=== PATIENT | female | born 1940 | race Caucasian/White ===

== ENCOUNTER → 2016-09-16 | Outpatient (CLI) | payer MEDICARE, OTHER ==
[~2016-09-16] MED LIST: ACET-77 PO; AMIT10TA6 PO; BACL10TA PO; CALC-9 PO; CHOL4PAC17 PO; CHOLESTEROL; CIPR500T78 PO; CYAN10007 PO; CYAN250L PO; DIPH25CA6 PO; DOCU100C37 PO; DOXY100C2 PO; ENXP30I.3 SC; ERGO400C PO; FAMO20TA5 PO; FENT1PAT57 TD; GABA-488 PO; GBPN300C PO; HYDR-34 PO; LEVO100T7 PO; LOSA100T28 PO; LOSA50TA6 PO; LVT.1T PO; MELA3TAB PO; MTC10T PO; MULT-974 PO; NF-METANX PO; NFAMINITAB PO; OLME20TA21 PO; OLME20TA5 PO; OMEG-109 PO; OMEG1CAP74 PO; OMEP20CA12 PO; OMEP20TA2 PO; OMG1KC PO; ONDA8TAB6 PO; OXYC-471 PO; PRAV40TA2 PO; PRAV80TA2 PO; PRD20T; PRD5T PO; PRED2.5T4 PO; PRED5TAB PO; PRV20T PO; SENN-140 PO; SULF1TAB35 PO; TETR250C3 PO; TRAM50TA2 PO; VIT1CAPS9 PO; VIT1TABL26 PO; [UNRECOGNIZED DRUG - CODE] PO; [UNRECOGNIZED DRUG - OTHER]
--- OUTSIDE RECORDS SUMMARY | 2016-09-16 10:33 | XMS REPORT | Continuity of Care Document ---
Author Author [facility] Organization [facility] Address Unknown Phone Unavailable Care Team Providers Care Mobile Device Engineer Name Role Phone DANNI ALVA MD PCP Insurance Providers Payer Name Policy Number Subscriber Name Relationship s Medicare [id number] Saul Redd 18 Self / Same As Patient [facility] [id number] Saul Redd 18 Self / Same As Patient Advance Directives Directive Response Recorded Date/Time Advance Directives Yes 12/16/14 1:08pm Health Care Power of Naphthol Soaping Machine Operator No 12/16/14 1:08pm Organ Donor No 12/16/14 1:08pm Resuscitation Status DNR-Pt Request 12/16/14 1:08pm Problems Medical Problems Problem Onset Date Status Abdominal pain Unknown Active Diarrhea Unknown Active HISTORY OF C. DIFFICILE Unknown Active Medications Medication Dose Route Sig Days/Qty Instructions Order Date Discontinued Date Status Prednisone 10/29/07 10/03/11 Discontinued Levothyroxine Sodium (Levothroid) 100 Mcg PO DAILY 10/29/07 Active Olmesartan 20 Mg PO DAILY 12/10/08 09/06/13 Discontinued [Cholesterol] 12/10/08 10/03/11 Discontinued Metoclopramide HCl 10 Mg PO GIVE EVERY 6 HR ON SCHEDULE 20 Qty 10/03/11 Discontinued Trimethoprim/Sulfamethoxazole 1 Each PO TWICE A DAY 20 Qty 12/10/08 Discontinued Pravastatin Sodium 20 Mg PO DAILY 10/03/11 04/06/13 Discontinued Omeprazole 20 Mg PO DAILY 10/03/11 09/06/13 Discontinued Gabapentin 300 Mg PO BEDTIME 10/03/11 Active Me-Cobalam/Lm-Folate/Pyridoxal 1 Tab PO DAILY 10/03/11 04/06/13 Discontinued Amitriptyline HCl (Elavil) 1 Each PO BEDTIME 10/03/11 04/06/13 Discontinued Fish Oil 2,000 Mg PO DAILY take 2 (1000 mg) capsules daily 10/03/11 Discontinued Cholecalciferol 400 Unit PO DAILY 10/03/11 04/06/13 Discontinued Calcium Carbonate/Vitamin D3 1,200 Mg PO DAILY 10/03/11 04/06/13 Discontinued Vitamin C/Vitamin E 4 Tab PO DAILY 10/03/11 04/13/13 Discontinued Acetaminophen/Hydrocodone Bitart 1 - 2 Ea PO Q 4 - 6 HR PRN 30 Qty 09/1904/06/13 Discontinued Enoxaparin Sodium 30 Mg SC Q24H 7 Days 10/09/11 04/06/13 Discontinued Prednisone 5 Mg PO DAILY 04/06/13 09/06/13 Discontinued Me-Cobalam/Lm-Folate/Pyridoxal 2 Tab PO DAILY 04/06/13 04/13/13 Discontinued Cholestyramine/Aspartame 4 G PO EVERY 12 HOURS PRN NEEDED FOR DIARRHEA 04/13/13 09/06/13 Discontinued Vancomycin Hcl 125 Mg PO EVERY 6 HOURS KEEP REFRIGERATED, 04/13/13 Discontinued Tetracycline Hcl 250 Mg PO DAILY 09/06/13 09/06/13 Discontinued Prednisone 5 Mg PO DAILY 09/06/13 09/06/13 Discontinued Omeprazole 20 Mg PO BEDTIME 09/06/13 02/15/14 Discontinued Olmesartan 20 Mg PO DAILY 09/06/13 09/06/13 Discontinued Prednisone 5 Mg PO DAILY 09/06/13 12/16/14 Discontinued Doxycycline Hyclate (Vibramycin) 100 Mg PO DAILY TAKE UNTIL GONE #30 FILLED 08-25-13 09/06/13 09/07/13 Discontinued Losartan Potassium 50 Mg PO DAILY 09/06/13 Active Multivitamin 1 Tab PO DAILY 09/06/13 02/15/14 Discontinued [place]-3/Dha/Epa/Fish Oil 1,000 Mg PO DAILY 09/06/13 Active Vit A,C & E/Lutein/Minerals 4 Tab PO DAILY 09/06/13 Active Cyanocobalamin (Vitamin B-12) 250 Mcg PO DAILY 09/06/13 02/15/14 Discontinued Pravastatin Sodium 20 Tab PO DAILY 30 Qty 09/07/13 02/15/14 Discontinued Pravastatin Sodium 1 Tab PO DAILY 30 Qty 02/15/14 Active Famotidine (Pepcid) 1 Each PO BEDTIME 02/15/14 12/16/14 Discontinued [Zanac] 12/16/14 Active Ciprofloxacin HCl 500 Mg PO TWICE A DAY 14 Qty 12/16/14 Active Social History Social History Problem Response Recorded Date/Time Alcohol Use Denies Use 12/16/2014 1:08pm Recreational Drug Use No 12/16/2014 1:08pm Recent Foreign Travel No 09/06/2013 11:10am Recent Infectious Disease Exposure No 09/06/2013 11:10am Hospitalization with Isolation Contact 09/07/2013 8:46pm Smoking Status Never a Smoker 12/16/2014 1:08pm Query Response Start Date Stop Date Smoking Status Never a Smoker Hospital Discharge Instructions No hospital discharge instructions. Plan of Care No plan of care. Functional Status No functional status results. Allergies, Adverse Reactions, Alerts Allergen Type Severity Reaction Status Last Updated Iodinated Contrast Media - IV Dye Allergy Unknown Active 09/07/13 iodine ([id number]) Allergy Unknown Active 01/08/06 Morphine Allergy Unknown Active 01/08/06 Immunizations Name Given Type Date of Pneumonia Vaccine 06/08/10 Historical Date of Influenza Vaccine 06/22/13 Historical Hepatitis A No Historical Hepatitis B No Historical Tetanus Booster (TDap) More than 5yrs Historical Vital Signs Acute Vital Signs Vital Response Date/Time Temperature (Fahrenheit) 98.2 degrees F (97.6 - 99.5) Temperature (Calculated Celsius) 36.97122 degrees C (36.4 - 37.5) Pulse Rate (adult) 85 bpm (60 - 90) Respiratory Rate 18 bpm (12 - 24) O2 Sat by Pulse Oximetry 97 % (88 - 100) Blood Pressure 170/90 mm Hg Pain Pain Intensity 6 Height (Feet) 5 feet Height (Inches) 5 inches Height (Calculated Centimeters) 165.700216 cm Weight (Pounds) 180 pounds Weight (Calculated Kilograms) 81.398253 kilograms Calculated BMI 29.95 Results Laboratory Results Test Name Result Units Flags Reference Collection Date/Time Result Date/ Time Comments White Blood Count 8.4 10^3/uL 4.3-11.0 12/16/2014 1:37pm 12/16/2014 1: 47pm Red Blood Count 4.67 10^6/uL 4.35-5.85 12/16/2014 1:37pm 12/16/2014 1: 47pm Hemoglobin 14.6 G/DL 11.5-16.0 12/16/2014 1:37pm 12/16/2014 1:47pm Hematocrit 44 % 35-52 12/16/2014 1:37pm 12/16/2014 1:47pm Mean Corpuscular Volume 95 FL 80-99 12/16/2014 1:37pm 12/16/2014 1: 47pm Mean Corpuscular Hemoglobin 31 PG 25-34 12/16/2014 1:37pm 12/16/2014 1: 47pm Mean Corpuscular Hemoglobin Concent 33 G/DL 32-36 12/16/2014 1:37pm 06/2015 1:47pm Red Cell Distribution Width 14.4 % 10.0-14.5 12/16/2014 1:37pm 2014 1:47pm Platelet Count 243 10^3/uL 130-400 12/16/2014 1:37pm 12/16/2014 1:47pm Mean Platelet Volume 10.4 FL 7.4-10.4 12/16/2014 1:37pm 12/16/2014 1: 47pm Neutrophils (%) (Auto) 71 % 42-75 12/16/2014 1:37pm 12/16/2014 1:47pm Lymphocytes (%) (Auto) 19 % 12-44 12/16/2014 1:37pm 12/16/2014 1:47pm Monocytes (%) (Auto) 8 % 0-12 12/16/2014 1:37pm 12/16/2014 1:47pm Eosinophils (%) (Auto) 1 % 0-10 12/16/2014 1:37pm 12/16/2014 1:47pm Basophils (%) (Auto) 1 % 0-10 12/16/2014 1:37pm 12/16/2014 1:47pm Neutrophils # (Auto) 6.0 X 10^3 1.8-7.8 12/16/2014 1:37pm 12/16/2014 1: 47pm Lymphocytes # (Auto) 1.6 X 10^3 1.0-4.0 12/16/2014 1:37pm 12/16/2014 1: 47pm Monocytes # (Auto) 0.7 X 10^3 0.0-1.0 12/16/2014 1:37pm 12/16/2014 1: 47pm Eosinophils # (Auto) 0.1 10^3/uL 0.0-0.3 12/16/2014 1:37pm 12/16/2014 1 :47pm Basophils # (Auto) 0.1 10^3/uL 0.0-0.1 12/16/2014 1:37pm 12/16/2014 1: 47pm Urine Color YELLOW 12/16/2014 2:41pm 12/16/2014 3:06pm Urine Clarity VERY CLOUDY * 12/16/2014 2:41pm 12/16/2014 3:06pm Urine pH 6 5-9 12/16/2014 2:41pm 12/16/2014 3:06pm Urine Specific [place] 1.015 * 1.016-1.022 12/16/2014 2:41pm 2014 3:06pm Urine Protein NEGATIVE NEGATIVE 12/16/2014 2:41pm 12/16/2014 3:06pm Urine Glucose (UA) NEGATIVE NEGATIVE 12/16/2014 2:41pm 12/16/2014 3: 06pm Urine RBC (Auto) 2+ * NEGATIVE 12/16/2014 2:41pm 12/16/2014 3:06pm Urine Ketones NEGATIVE NEGATIVE 12/16/2014 2:41pm 12/16/2014 3:06pm Urine Nitrite NEGATIVE NEGATIVE 12/16/2014 2:41pm 12/16/2014 3:06pm Urine Bilirubin NEGATIVE NEGATIVE 12/16/2014 2:41pm 12/16/2014 3: 06pm Urine Urobilinogen NORMAL MG/DL NORMAL 12/16/2014 2:41pm 12/16/2014 3: 06pm Urine Leukocyte Esterase 3+ * NEGATIVE 12/16/2014 2:41pm 12/16/2014 3: 06pm Urine RBC 2-5 /HPF * 12/16/2014 2:41pm 12/16/2014 3:06pm Urine WBC 25-50 /HPF * 12/16/2014 2:41pm 12/16/2014 3:06pm Urine Bacteria LARGE /HPF * 12/16/2014 2:41pm 12/16/2014 3:06pm Urine Squamous Epithelial Cells 25-50 /HPF * 12/16/2014 2:41pm 2014 3:06pm Urine Renal Epithelial Cells 0-2 /HPF 12/16/2014 2:41pm 12/16/2014 3: 06pm Urine Crystals NONE /LPF 12/16/2014 2:41pm 12/16/2014 3:06pm Urine Casts NONE /LPF 12/16/2014 2:41pm 12/16/2014 3:06pm Urine Mucus NEGATIVE /LPF 12/16/2014 2:41pm 12/16/2014 3:06pm Urine Culture Indicated YES 12/16/2014 2:41pm 12/16/2014 3:06pm does not appear to be a clean catch Sodium Level 144 MMOL/L 135-145 12/16/2014 1:37pm 12/16/2014 2:05pm Potassium Level 4.6 MMOL/L 3.6-5.0 12/16/2014 1:37pm 12/16/2014 2:05pm Chloride Level 108 MMOL/L H 98-107 12/16/2014 1:37pm 12/16/2014 2:05pm Carbon Dioxide Level 26 MMOL/L 21-32 12/16/2014 1:37pm 12/16/2014 2: 05pm Blood Urea Nitrogen 10 MG/DL 7-18 12/16/2014 1:37pm 12/16/2014 2:05pm Creatinine 0.80 MG/DL 0.60-1.30 12/16/2014 1:37pm 12/16/2014 2:05pm BUN/Creatinine Ratio 13 12/16/2014 1:37pm 12/16/2014 2:05pm Estimat Glomerular Filtration Rate > 60 12/16/2014 1:37pm 2014 2:05pm GFR INTERPRETIVE DATA UNITS FOR ESTIMATED GFR (eGFR): mL/min/1.73 M2 REFERENCE RANGE FOR ESTIMATED GFR (eGFR) eGFR NORMAL eGFR >60 MODERATELY DECREASED eGFR 30-59 SEVERLY DECREASED eGFR 15-29 KIDNEY FAILURE <15 (OR DIALYSIS) Glucose Level 131 MG/DL H 70-105 12/16/2014 1:37pm 12/16/2014 2:05pm Calcium Level 9.9 MG/DL 8.5-10.1 12/16/2014 1:37pm 12/16/2014 2:05pm Total Bilirubin 0.5 MG/DL 0.1-1.0 12/16/2014 1:37pm 12/16/2014 2:05pm Alkaline Phosphatase 68 U/L 40-136 12/16/2014 1:37pm 12/16/2014 2:05pm Aspartate Amino Transf (AST/SGOT) 22 U/L 5-34 12/16/2014 1:37pm 2014 2:05pm Alanine Aminotransferase (ALT/SGPT) 24 U/L 0-55 12/16/2014 1:37pm 12/16 2:05pm Total Protein 7.0 G/DL 6.4-8.2 12/16/2014 1:37pm 12/16/2014 2:05pm Albumin 4.3 G/DL 3.2-4.5 12/16/2014 1:37pm 12/16/2014 2:05pm Procedures No known history of procedures. Encounters Encounter Location Date/Time Departed Emergency Room Via [facility] 12/16/14 12:36pm Recent Diagnosis
--- NOTE | 2016-09-16 16:13 | Diagnostic Imaging Report ---
Exam: Three views of the left ribs. Indication: Fall. Findings: There is no fracture seen. There is minimal atelectasis in the left lung base. Impression: No rib fracture seen. Dictated by: Dictated on workstation # [id number]
== END ==
LOC: RAD 10:29
PROVIDERS: ATTEND Nurse Practitioner Family
DX: R07.81 Pleurodynia (principal)
CPT/HCPCS: 71100

== ENCOUNTER 2016-11-05 10:59 | Outpatient (RCR) | payer MEDICARE, OTHER ==
--- OUTSIDE RECORDS SUMMARY | 2016-10-10 08:57 | XMS REPORT | Continuity of Care Document ---
Author Author [facility] Organization [facility] Address Unknown Phone Unavailable Care Team Providers Care Manager Biostatistics Name Role Phone DANNI ALVA MD PCP Insurance Providers Payer Name Policy Number Subscriber Name Relationship s Medicare [id number] Saul Redd 18 Self / Same As Patient [facility] [id number] Saul Redd 18 Self / Same As Patient Advance Directives Directive Response Recorded Date/Time Advance Directives Yes 12/16/14 1:08pm Health Care Power of Vehicle Monitor Technician No 12/16/14 1:08pm Organ Donor No 12/16/14 [...] 1 Tab PO DAILY 09/06/13 02/15/14 Discontinued [place]-3/Dha/Epa/Fish Oil 1,000 Mg PO DAILY 09/06/13 Active [...] IV Dye Allergy Unknown Active 09/07/13 iodine ([id number]) Allergy Unknown Active 01/08/06 Morphine Allergy Unknown Active 01/08/06 Immunizations Name Given Type Date of Pneumonia Vaccine 06/08/10 Historical Date of Influenza Vaccine 06/22/13 Historical Hepatitis A No Historical Hepatitis B No Historical Tetanus Booster (TDap) More than 5yrs Historical Vital Signs Acute Vital Signs Vital Response Date/Time Temperature (Fahrenheit) 98.2 degrees F (97.6 - 99.5) Temperature (Calculated Celsius) 36.49755 degrees C (36.4 - 37.5) Pulse Rate (adult) 85 bpm (60 - 90) Respiratory Rate 18 bpm (12 - 24) O2 Sat by Pulse Oximetry 97 % (88 - 100) Blood Pressure 170/90 mm Hg Pain Pain Intensity 6 Height (Feet) 5 feet Height (Inches) 5 inches Height (Calculated Centimeters) 165.610463 cm Weight (Pounds) 180 pounds Weight (Calculated Kilograms) 81.728879 kilograms Calculated BMI 29.95 Results Laboratory Results [...] 5-9 12/16/2014 2:41pm 12/16/2014 3:06pm Urine Specific [place] 1.015 * 1.016-1.022 12/16/2014 2:41pm 2014 3:06pm [...] Encounter Location Date/Time Departed Emergency Room Via [facility] 12/16/14 12:36pm Recent Diagnosis
== END 2016-12-31 16:05 | disposition home or self-care (01) ==
PROVIDERS: ATTEND Family Medicine
DX: M62.81 Muscle weakness (generalized) (principal)

== ENCOUNTER → 2016-11-05 | Outpatient (CLI) | payer MEDICARE, OTHER ==
--- OUTSIDE RECORDS SUMMARY | 2016-11-05 16:11 | XMS REPORT | Continuity of Care Document ---
Author Author [facility] Organization [facility] Address Unknown Phone Unavailable Care Team Providers Care Stepdown Nurse Name Role Phone DANNI ALVA MD PCP Insurance Providers Payer Name Policy Number Subscriber Name Relationship s Medicare [id number] Saul Redd 18 Self / Same As Patient [facility] [id number] Saul Redd 18 Self / Same As Patient Advance Directives Directive Response Recorded Date/Time Advance Directives Yes 12/16/14 1:08pm Health Care Power of Heat Treater Apprentice No 12/16/14 1:08pm Organ Donor No 12/16/14 [...] 1 Tab PO DAILY 09/06/13 02/15/14 Discontinued [place]-3/Dha/Epa/Fish Oil 1,000 Mg PO DAILY 09/06/13 Active [...] IV Dye Allergy Unknown Active 09/07/13 iodine ([id number]) Allergy Unknown Active 01/08/06 Morphine Allergy Unknown Active 01/08/06 Immunizations Name Given Type Date of Pneumonia Vaccine 06/08/10 Historical Date of Influenza Vaccine 06/22/13 Historical Hepatitis A No Historical Hepatitis B No Historical Tetanus Booster (TDap) More than 5yrs Historical Vital Signs Acute Vital Signs Vital Response Date/Time Temperature (Fahrenheit) 98.2 degrees F (97.6 - 99.5) Temperature (Calculated Celsius) 36.32345 degrees C (36.4 - 37.5) Pulse Rate (adult) 85 bpm (60 - 90) Respiratory Rate 18 bpm (12 - 24) O2 Sat by Pulse Oximetry 97 % (88 - 100) Blood Pressure 170/90 mm Hg Pain Pain Intensity 6 Height (Feet) 5 feet Height (Inches) 5 inches Height (Calculated Centimeters) 165.071225 cm Weight (Pounds) 180 pounds Weight (Calculated Kilograms) 81.973064 kilograms Calculated BMI 29.95 Results Laboratory Results [...] 5-9 12/16/2014 2:41pm 12/16/2014 3:06pm Urine Specific [place] 1.015 * 1.016-1.022 12/16/2014 2:41pm 2014 3:06pm [...] Encounter Location Date/Time Departed Emergency Room [facility] 12/16/14 12:36pm Recent Diagnosis
--- NOTE | 2016-11-05 18:25 | Diagnostic Imaging Report ---
INDICATION: Right knee pain. FINDINGS: AP, oblique and lateral views of the right knee reveal diffuse joint space narrowing and marginal spurring. There is also increased density in the suprapatellar recess indicating joint effusion. No fracture or malalignment is identified. There is extensive, diffuse atherosclerotic calcification. IMPRESSION: Osteoarthritis of the right knee with moderate amount of right joint fluid. Dictated by: Dictated on workstation # [id number]
== END ==
LOC: RAD 15:47
PROVIDERS: ATTEND Pain Medicine Pain Medicine
DX: M17.11 Unilateral primary osteoarthritis, right knee (principal)
CPT/HCPCS: 73562

== ENCOUNTER → 2017-07-24 | Outpatient (CLI) | payer MEDICARE, OTHER ==
--- NOTE | 2017-07-25 10:06 | Diagnostic Imaging Report ---
Bilateral screening mammogram 2D views with tomosynthesis. The current study was also evaluated with a Computer Aided Detection (CAD) system. INDICATION: Screening. No current complaints stated on the questionnaire. COMPARISON: 07/25/16 FINDINGS: The breasts are composed of heterogeneously dense parenchyma which may decrease mammographic sensitivity. There are benign-appearing calcifications seen. Allowing for technique and positional differences, no suspicious change is seen. IMPRESSION: Dense breasts with no definite change. ACR BI-RADS Category 2: Benign findings. Result letter will be mailed to the patient. Note: At least 10% of breast cancer is not imaged by mammography. Dictated by: Dictated on workstation # [id number]
== END ==
LOC: RAD 10:31
PROVIDERS: ATTEND Nurse Practitioner Family
DX: Z12.31 Encounter for screening mammogram for malignant neoplasm of breast (principal)
CPT/HCPCS: 77067

== ENCOUNTER → 2018-04-13 | Outpatient (CLI) | payer MEDICARE, OTHER ==
--- NOTE | 2018-04-13 09:56 | Diagnostic Imaging Report ---
PROCEDURE: CT abdomen and pelvis without contrast. TECHNIQUE: Multiple contiguous axial images were obtained through the abdomen and pelvis without the use of intravenous contrast. INDICATION: Nausea and diarrhea. COMPARISON: None FINDINGS: Included portions of lung bases are clear. Note is made of calcified coronary atherosclerosis. CT abdomen: Normal appendix cannot be adequately identified, but there is no pericecal inflammation. Small bowel loops are nondistended. There is colonic diverticulosis, but no CT evidence of acute diverticulitis. The kidneys, liver, spleen, adrenal glands, and pancreas have an unremarkable noncontrast CT appearance. There is no loculated fluid collection, free fluid, nor free air within the abdomen. No abnormal mesenteric or retroperitoneal adenopathy is seen. There is mild scattered calcified aortic and arterial atherosclerosis. Bony structures show no acute abnormalities. CT pelvis: Urinary bladder is unopacified. No calculi are seen within the urinary bladder. Pessary device is noted. There is no loculated fluid collection, free fluid, nor free air within the pelvis. No abnormal lymph nodes are identified. Bony structures show no acute abnormalities. IMPRESSION: 1. No acute abnormalities are seen within the abdomen or pelvis. 2. Colonic diverticulosis, but no CT evidence of acute diverticulitis. Dictated by: Dictated on workstation # [id number]
== END ==
LOC: RAD 08:59
PROVIDERS: ATTEND Nurse Practitioner Family
DX: K57.30 Diverticulosis of large intestine without perforation or abscess without bleeding (principal)
CPT/HCPCS: 74176

== ENCOUNTER → 2018-07-07 | Outpatient (CLI) | payer MEDICARE, OTHER ==
[~2018-07-07] MED LIST changes: +ATOR10TA66 PO; -LOSA100T28 PO; +LOSA100T8 PO; +MELO7.5T46 PO; +OMEG1CAP13 PO; -SENN-140 PO; +SENN-141 PO
--- NOTE | 2018-07-08 14:34 | RADIOLOGY REPORT ---
NAME: SAUL REDD [facility] REC#: [id number] PT STATUS: DEP CLI : 12/12/1943 PHYSICIAN: NEO NARAYAN ADMIT DATE: 07/07/18/RAD CORRECTED Signed Date of Exam:07/07/18 CT ABDOMEN/PELVIS WO PROCEDURE: CT abdomen and pelvis without contrast. TECHNIQUE: Multiple contiguous axial images were obtained through the abdomen and pelvis without the use of intravenous contrast. INDICATION: Left lower quadrant pain and diverticulitis. No prior studies are available for comparison. The lung bases are clear. There are calcified lymph nodes in the arlet bilaterally consistent with prior granulomatous exposure. No discrete liver mass is identified. The gallbladder is surgically absent. No biliary duct dilatation is seen. Pancreas is atrophic. The spleen is unremarkable. No adrenal mass is detected. No renal calculi or hydronephrosis is identified. Aorta is calcified but nonaneurysmal. The small and large bowel loops are normal caliber. No obstruction is seen. There is diverticulosis of the sigmoid colon but no evidence of acute diverticulitis. The bladder is somewhat low in position and does show some prolapse inferiorly in the region of the vaginal cuff. Bony structures show postop changes of posterior instrumented fusion at L4-L5 level. IMPRESSION: 1. Uncomplicated diverticulosis. 2. No acute features detected. 3. Bladder prolapse. Dictated by: Dictated on workstation # [id number] Dict: 07/07/18 1354 Trans: 07/07/18 1744 [facility] [id number] Interpreted by: MIRLANDE SOLIS MD Electronically signed by: MIRLANDE SOLIS MD 07/07/18 1744 [facility]
== END ==
LOC: RAD 11:40
PROVIDERS: ATTEND Nurse Practitioner Family
DX: K57.30 Diverticulosis of large intestine without perforation or abscess without bleeding (principal); N81.10 Cystocele, unspecified; Z90.49 Acquired absence of other specified parts of digestive tract
CPT/HCPCS: 74176

== ENCOUNTER 2018-07-14 13:00 | Outpatient (CLI) | payer MEDICARE, OTHER ==
[~2018-07-14] VITALS: Ht 162.6 cm; Wt 78.0 kg
[~2018-07-14 13:00] MED LIST changes: -ATOR10TA66 PO; -MELO7.5T46 PO; -OMEG1CAP13 PO
[2018-07-14] MEDS ORDERED: ATOR10TA66 PO (13:16)
[2018-07-14] MEDS ORDERED: MELO7.5T46 PO (13:16)
[2018-07-14] MEDS ORDERED: OMEG1CAP13 PO (13:16)
== END 2018-07-14 13:20 | disposition home or self-care (01) ==
LOC: PREOP 13:00
PROVIDERS: ATTEND Internal Medicine
DX: Z01.818 Encounter for other preprocedural examination (principal)

== ENCOUNTER 2018-07-17 08:20 | Day surgery (SDC) | payer MEDICARE, OTHER ==
--- NOTE | 2018-07-13 17:12 | HISTORY AND PHYSICAL ---
DATE OF SERVICE: COLONOSCOPY HISTORY AND PHYSICAL DATE OF SURGERY: 07/17/2018. HISTORY OF PRESENT ILLNESS: The patient is a 67-year-old white female referred by Dr. Villatoro for diagnostic colonoscopy. She has had two bouts of left lower quadrant abdominal pain requiring antibiotics, presumably diverticulitis in etiology. She just finished a round of antibiotics that was rather protracted due to protracted symptoms last week. She has not had any recurrence of significant discomfort and denies night sweats, chills or fever. She is feeling better, but still notes some intermittent left lower quadrant abdominal pain without tenesmus and without bowel habit change, denying diarrhea or constipation currently. She has not noted any blood in her stool and does not believe that there has been any associated weight loss. I had performed colonoscopy on her in 2012, at which time, she did have a villous adenoma in the cecum, which was biopsied and cauterized; it measured 1 x 1.5 cm in size and there was no evidence. She underwent a repeat colonoscopy in 2013 revealing no evidence for recurrence of that polyp. She had several diminutive hyperplastic polyps, one from the splenic flexure, one from the proximal sigmoid colon and a questionable evolving tubular adenoma removed from the hepatic flexure. She had moderate diverticular disease without evidence of diverticulitis on her last colonoscopy in 2013. 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 PAST SURGICAL HISTORY: Significant for lumbar diskectomy and possible fusion in 2015. She has had a past hemorrhoidectomy. She did undergo CT scanning last week, which revealed significant diverticulosis, but no CT findings to suggest diverticulitis with no other significant abnormalities being noted. FAMILY HISTORY: Her father succumbed to a stroke in his 70s and mother had a heart attack in her 70s as well. She is not aware of any family history for GI tract malignancy including colon cancer. SOCIAL HISTORY: She is and lives with her spouse with no past smoking history and no alcohol usage. PHYSICAL EXAMINATION: GENERAL: Reveals a somewhat anxious appearing white female, otherwise in no acute distress. VITAL SIGNS: Blood pressure 136/60. HEENT: Unremarkable. Sclerae are nonicteric. No evidence for pallor is noted. CHEST: Clear to auscultation. CARDIOVASCULAR: Reveals a regular rate and rhythm with a soft I to II/ systolic ejection murmur heard best in the second right intercostal space without evidence of pulsus, parvus or tardus. ABDOMEN: Soft and supple. There is some mild left lower quadrant discomfort to palpation. No mass or organomegaly is noted. No rebound or guarding is noted. Bowel sounds are positive and no bruits are appreciated. There is no evidence for abdominal distention. EXTREMITIES: Reveal no cyanosis, clubbing or edema. ASSESSMENT AND PLAN: For further investigation of left lower quadrant abdominal pain and a past history of adenomatous colonic polyps, the patient was set up for colonoscopy on 07/17/2018. Prep instructions were given and questions were answered. Her electronic medical record was reviewed. Forty minutes of my personal time was spent with another 15 minutes of staff time going over prep instructions setting of the procedure. This will be performed under Diprivan based anesthesia and she is quite anxious and is having some left lower quadrant abdominal pain and I suspect we would be unable to keep her comfortable without having to potentially over utilize Versed and narcotic based anesthesia. Job ID: [id number] DocumentID: [id number] Dictated Date: 07/10/2018 11:36:29 Javascript Front End Developer Date: 07/10/2018 13:00:16 Dictated By: HANNAH SOLER MD
[~2018-07-17] VITALS: Ht 162.6 cm; Wt 78.0 kg
[2018-07-17 08:20] VITALS: BP 164/99
[~2018-07-17 08:20] MED LIST changes: +ATOR10TA66 PO; +MELO7.5T46 PO; +OMEG1CAP13 PO
[2018-07-17] MEDS ORDERED: D5 LR IV SOLUTION 1,000 ML IV ONE ×2 (08:47→09:15)
[2018-07-17] MEDS ORDERED: ONDANSETRON 4 MG/2 ML (SDV) Z0FRAN ONE (09:01)
[2018-07-17] MEDS ORDERED: LACTATED RINGERS 1,000 ML IV PRN (09:15)
[2018-07-17] MEDS ORDERED: ONDANSETRON 4 MG/2 ML (SDV) Z0FRAN IVP PRN (09:15)
[2018-07-17] MEDS ORDERED: LACTATED RINGERS 1,000 ML IV ONE (09:33)
[2018-07-17] MEDS ORDERED: MIDAZOLAM 2 MG/2 ML (VERSED) VIAL ONE (09:51)
[2018-07-17] MEDS ORDERED: PROPOFOL INJECTION 50 ML IV ONE (09:51)
--- NOTE | 2018-07-17 09:57 | Pre-Op Note & Conscious Sedat ---
Pre-Operative Progress Note H&P Reviewed The H&P was reviewed, patient examined and no changes noted. Date H&P Reviewed: Jul 17, 2018 Time H&P Reviewed: 09:57 Conscious Sedation Pre-Proced ASA Score 2 For ASA 3 and 4: Consider anesthesia and medical clearance. Also, for patients with a history of failed moderate sedation consider anesthesia. Airway Lungs Heart ASA score ASA 1: a normal healthy patient ASA 2: a patient with a mild systemic disease (mid diabetes, controlled hypertension, obesity ASA 3: a patient with a severe systemic disease that limits activity (angina , COPD, prior Myocardial infarction) ASA 4: a patient with an incapacitating disease that is a constant threat to life (CHF, renal failure) ASA 5: a moribund patient not expected to survive 24 hrs. (ruptured aneurysm) ASA 6: a declared brain patient whose organs are being harvested. For emergent operations, add the letter E after the classification Mallampati Classification Grade 3 Sedation Plan Analgesia, Amnesia, Plan communicated to team members, Discussed options with patient/fam, Discussed risks with patient/fam The patient is an appropriate candidate to undergo the planned procedure, sedation, and anesthesia. The patient immediately re-assessed prior to indication. HANNAH SOLER MD Jul 17, 2018 09:57
[2018-07-17 11:30] VITALS: BP 114/59
[2018-07-17 12:30] VITALS: BP 139/67
[2018-07-17 13:00] VITALS: BP 139/67
--- NOTE | 2018-07-17 16:10 | Anesthesia-General Post-Op ---
MAC Patient Condition Mental Status/LOC: Same as Preop Cardiovascular: Satisfactory Nausea/Vomiting: Absent Respiratory: Satisfactory Pain: Controlled Complications: Absent Post Op Complications Complications None Follow Up Care/Instructions Patient Instructions None needed. Anesthesiology Discharge Order Discharge Order Patient was seen this morning after the procedure and she was doing well, no complaints, stable vital signs, no apparent adverse anesthesia problems. COLEMAN SOOD DO Jul 17, 2018 16:10
--- NOTE | 2018-07-17 16:46 | OPERATIVE REPORT ---
DATE OF SERVICE: 07/17/2018 COLONOSCOPY SUMMARY INDICATION FOR THE PROCEDURE: Surveillance colonoscopy, history of adenomatous cecal polyp, and severe diverticular disease. The patient was placed in left lateral decubitus position. Prior to undergoing colonoscopy, a digital rectal evaluation was performed. Anal sphincter tone was normal and the perianal reflex is intact. No abnormalities were noted to digital inspection of anal canal or distal rectal vault. The colonoscope was then inserted in the rectum under direct visualization advanced to the cecum. The cecum was identified by identification of the ileocecal valve and cecal strap. Photographic documentation was obtained. Careful inspection was made as the colonoscope was withdrawn. Due to severe diverticular disease and past sensitivity, procedure was done under Diprivan anesthesia. FINDINGS: There is evidence for internal or external hemorrhoids and the rectum was unremarkable. Multiple small to medium size diverticulum with haustral hypertrophy was noted throughout the sigmoid colon compatible with severe diverticular disease, but without endoscopic evidence for diverticulitis. Diverticular disease involved predominantly the cecum and to a lesser extent the descending colon with minimal disease proximal to this. No other sigmoid, descending, splenic flexure or transverse colonic abnormalities were noted. The hepatic flexure was unremarkable. There was no evidence for previous polyp removed from this location. The ascending colon was unremarkable. There was a 1 x 2 cm adenomatous appearing cecal polyp present, despite placing the patient in several different positions, I was not able to get a snare around it. It was biopsied and cauterized in four locations with tissue submitted for histopathology. There was no evidence to suggest malignant degeneration to gross inspection. Photograph was obtained. Minimal blood loss was noted. A diminutive periappendiceal polyp was biopsied, cauterized with no blood loss. ASSESSMENT: 1. A 1 x 2 cm sessile adenomatous appearing cecal polyp was noted after unsuccessful attempts to snare the poly, it was biopsied and cauterized in four locations. There was no evidence to gross inspection of malignant degeneration. We will await histopathology report with likely earlier recommendation for repeat surveillance colonoscopy under Diprivan anesthesia. Again, noted was severe diverticular disease without evidence for diverticulitis predominantly noted in the sigmoid and to a lesser extent of the descending colon. I thank you for the referral of this pleasant lady. Sincerely, Job ID: [id number] DocumentID: [id number] Dictated Date: 07/17/2018 11:45:31 Closing Manager Date: 07/17/2018 16:45:47 Dictated By: HANNAH SOLER MD MTDD
--- NOTE | 2018-07-22 22:59 | OPERATIVE REPORT ---
DATE OF SERVICE: FOLLOWUP COLONOSCOPY Path report revealed the larger polyp while a larger polyp in the cecum was actually a serrated adenoma. This is a precancerous lesion and due to its large size, they would recommend a repeat followup surveillance colonoscopy in one year. I thank you for the referral of this pleasant lady. Job ID: [id number] DocumentID: [id number] Dictated Date: 07/22/2018 14:13:35 Customer Contact Specialist Date: 07/22/2018 22:58:33 Dictated By: HANNAH SOLER MD
== END 2018-07-17 13:00 | disposition home or self-care (01) ==
LOC: ENDO 08:20
PROVIDERS: ATTEND Internal Medicine
DX: Z12.11 Encounter for screening for malignant neoplasm of colon (principal); D12.0 Benign neoplasm of cecum; D12.1 Benign neoplasm of appendix; K57.30 Diverticulosis of large intestine without perforation or abscess without bleeding; Z86.010 Personal history of colon polyps; I10 Essential (primary) hypertension; E06.3 Autoimmune thyroiditis; Z98.1 Arthrodesis status; Z79.899 Other long term (current) drug therapy
CPT/HCPCS: 87804; 88305

== ENCOUNTER → 2018-10-22 | Outpatient (CLI) | payer MEDICARE, OTHER ==
[~2018-10-22] MED LIST changes: +LOSA100T57 PO; -LOSA100T8 PO
--- NOTE | 2018-10-22 19:09 | Diagnostic Imaging Report ---
INDICATION: Pain in the left axilla. Correlation is made with prior mammograms dating back to 2008. 2-D and 3-D bilateral diagnostic mammography was performed with computer-aided Detection (CAD) system. FINDINGS: Both breasts are heterogeneously dense, limiting the sensitivity of mammography. There are benign parenchymal and vascular calcifications bilaterally. Lymph node in the left axilla has been stable on mammograms dating back to 2008. No new mass or malignant-appearing microcalcifications are seen. IMPRESSION: No mammographic features suspicious for malignancy are identified. Even so, directed sonographic interrogation of the area of pain in the left axilla is recommended and will be performed today. ACR BI-RADS Category 0: Incomplete. (Needs additional imaging evaluation). Result letter will be mailed to the patient. Note: At least 10% of breast cancer is not imaged by mammography. Dictated by: Dictated on workstation # [id number]
--- NOTE | 2018-10-22 19:11 | Diagnostic Imaging Report ---
INDICATION: Pain in the left axilla. The study is performed for further evaluation. Correlation is made with the diagnostic mammogram earlier same day. FINDINGS: Sonographic interrogation of the area of pain in left axilla was performed. There is a circumscribed ovoid hypoechoic mass measuring 2.1 x 0.6 x 1.2 cm. This corresponds to the density noted mammographically. This has been stable on mammograms dating back to 2008 and most likely represents a lymph node. No new abnormality is seen. No fluid collections are seen. IMPRESSION: No suspicious sonographic abnormality is identified. ACR BI-RADS Category 2: Benign findings. Dictated by: Dictated on workstation # [id number]
== END ==
LOC: RAD 10:30
PROVIDERS: ATTEND Nurse Practitioner Family
DX: N64.4 Mastodynia (principal)
CPT/HCPCS: 76642; 77066

== ENCOUNTER → 2019-01-20 | Outpatient (CLI) | payer MEDICARE, OTHER ==
[~2019-01-20] VITALS: Ht 162.6 cm; Wt 78.0 kg
[~2019-01-20] MED LIST changes: +NS IV 1000 ML 1,000 ML IV SCH; +NS IV 1000 ML 1,000 ML ONE; +OCUVITE SOFTGE1 EACH PO; -VIT1CAPS9 PO; +metroNIDAZOLE 500 MG/100 ML IVPB (PRE-MIX) IV ONE; +metroNIDAZOLE 500MG/100ML IVPB 100 ML ONE
[2019-01-20 12:06] VITALS: BP 112/67
== END ==
LOC: SDC 11:03
PROVIDERS: ATTEND Family Medicine
DX: K57.92 Diverticulitis of intestine, part unspecified, without perforation or abscess without bleeding (principal); I95.9 Hypotension, unspecified
CPT/HCPCS: 96361; 96365

== ENCOUNTER → 2019-01-26 | Outpatient (CLI) | payer MEDICARE, OTHER ==
[~2019-01-26] MED LIST changes: -NS IV 1000 ML 1,000 ML IV SCH; -NS IV 1000 ML 1,000 ML ONE; -metroNIDAZOLE 500 MG/100 ML IVPB (PRE-MIX) IV ONE; -metroNIDAZOLE 500MG/100ML IVPB 100 ML ONE
--- NOTE | 2019-01-26 12:53 | Diagnostic Imaging Report ---
PROCEDURE: CT abdomen and pelvis without contrast. TECHNIQUE: Multiple contiguous axial images were obtained through the abdomen and pelvis without the use of intravenous contrast. Auto Exposure Controls were utilized during the CT exam to meet ALARA standards for radiation dose reduction. INDICATION: Diarrhea and pain. COMPARISON: Exam compared to 07/07/2018. FINDINGS: There is no abnormal small or large bowel intraluminal content. There were no findings of bowel obstruction. No small or large bowel wall thickening. No perienteric or pericolonic edema. No inflammatory process, ascites, or fluid collection. There is no free air. There is ureterocele at the bladder base extending abnormally low in the pelvis. Some unobstructed pelvic small bowel also extending below the normal pelvic floor. Urinary tracts are unobstructed. No opaque stone. The gallbladder is surgically absent. No bile duct dilatation. Spleen, adrenals, and pancreas are unremarkable. Noninflamed sigmoid diverticulosis present. IMPRESSION: Noninflamed diverticulosis. No obstruction, inflammatory process, or acute finding. No fluid collection or mass. Enterocele and cystocele are noted, nonobstructing. Dictated by: Dictated on workstation # [id number]
== END ==
LOC: RAD 11:54
PROVIDERS: ATTEND Nurse Practitioner Family
DX: K57.30 Diverticulosis of large intestine without perforation or abscess without bleeding (principal); K45.8 Other specified abdominal hernia without obstruction or gangrene; N81.10 Cystocele, unspecified; Z90.49 Acquired absence of other specified parts of digestive tract
CPT/HCPCS: 74176

== ENCOUNTER 2019-07-16 15:50 | Outpatient (CLI) | payer MEDICARE, OTHER ==
[~2019-07-16] VITALS: Ht 165.1 cm; Wt 78.6 kg
[2019-07-16] MEDS ORDERED: ROSU5TAB PO (15:55)
[2019-07-16] MEDS ORDERED: EZET10TA49 PO (15:55)
== END 2019-07-16 15:56 | disposition home or self-care (01) ==
LOC: PREOP 15:50
PROVIDERS: ATTEND Internal Medicine
DX: Z01.818 Encounter for other preprocedural examination (principal)

== ENCOUNTER → 2020-01-12 | Outpatient (CLI) | payer MEDICARE, OTHER ==
[~2020-01-12] MED LIST changes: -ACET-77 PO; +ACET-78 PO; +DIPH25CA48 PO; -DIPH25CA6 PO; +EZET10TA49 PO; -MELA3TAB PO; +MELA3TAB39 PO; +ROSU5TAB PO; -SENN-141 PO; +SENN-234 PO; -TRAM50TA2 PO; +TRM50T PO
--- NOTE | 2020-01-12 10:38 | Diagnostic Imaging Report ---
EXAMINATION: Right ankle at 9:55 AM. INDICATION: Ankle pain. TECHNIQUE/COMPARISON: Three views of the right ankle were obtained. There are no prior studies available for comparison. FINDINGS: There is no fracture, dislocation, or acute bony abnormality evident. The ankle mortise is not widened and the talar dome is smooth. There is soft tissue edema about the ankle joint, particularly along the medial aspect of the ankle joint. IMPRESSION: There is soft tissue edema about the ankle joint, particularly along the medial aspect. There is no acute bony abnormality identified, however. Dictated by: Dictated on workstation # [id number]
== END ==
LOC: RAD 09:17
PROVIDERS: ATTEND Nurse Practitioner Family
DX: M25.571 Pain in right ankle and joints of right foot (principal)
CPT/HCPCS: 73610

== ENCOUNTER 2020-04-27 15:39 | Outpatient (CLI) | payer MEDICARE, OTHER ==
[~2020-04-27] VITALS: Ht 165.1 cm; Wt 76400.0 kg
[2020-04-27 15:45] VITALS: BP 155/78
[2020-04-27] MEDS ORDERED: ONDANSETRON 4 MG/2 ML (SDV) Z0FRAN IV PRN (16:00)
[2020-04-27] MEDS ORDERED: KETOROLAC 30 MG/ML VIAL IV PRN (16:00)
[2020-04-27] MEDS ORDERED: NS IV 1000 ML 1,000 ML IV NR (16:00)
[2020-04-27] MEDS ORDERED: metroNIDAZOLE 500 MG/100 ML IVPB (PRE-MIX) IV ONE (16:00)
[2020-04-27 16:07] LABS: HEMOGLOBIN 14.6 G/DL (11.5-16.0); RED CELL DISTRIBUTION WIDTH 15.6 % (10.0-14.5); WHITE BLOOD COUNT 6.1 10^3/uL (4.3-11.0)
[2020-04-27 16:25] LABS: ALANINE AMINOTRANSFERASE 20 U/L (0-55); ALBUMIN 4.1 GM/DL (3.2-4.5); ALKALINE PHOSPHATASE 58 U/L (40-136); BILIRUBIN,TOTAL 0.6 MG/DL (0.1-1.0); BUN/CREATININE RATIO 11; CALCIUM 9.5 MG/DL (8.5-10.1); CARBON DIOXIDE 26 MMOL/L (21-32); CHLORIDE 108 MMOL/L (98-107); CREATININE SERUM 0.75 MG/DL (0.60-1.30); GFR ESTIMATED > 60; GLUCOSE 100 MG/DL (70-105); SODIUM 142 MMOL/L (135-145); TOTAL PROTEIN 6.7 GM/DL (6.4-8.2)
--- NOTE | 2020-04-27 17:01 | Diagnostic Imaging Report ---
INDICATION: Abdominal pain and diarrhea Supine images of the abdomen reveal mild diffuse colonic stool. Overall bowel gas pattern is unremarkable. Surgical findings are seen in the lumbar spine and pelvis. There is no evidence of free intraperitoneal gas or pneumatosis. IMPRESSION: No acute abnormality is detected. Dictated by: Dictated on workstation # [id number]
[2020-04-27 17:32] LABS: BILIRUBIN,URINE NEGATIVE (NEGATIVE); COLOR,URINE YELLOW; GLUCOSE, URINE (UA) NEGATIVE (NEGATIVE); KETONES,URINE 1+ (NEGATIVE); LEUKOCYTE ESTERASE ,URINE 3+ (NEGATIVE); NITRITE,URINE NEGATIVE (NEGATIVE); PROTEIN,URINE NEGATIVE (NEGATIVE)
[2020-04-27 17:41] LABS: BACTERIA,URINE LARGE /HPF; CLARITY,URINE SL CLOUDY; WBC,URINE 25-50 /HPF
[2020-04-27 18:00] VITALS: BP 155/78
== END 2020-04-27 17:58 | disposition home or self-care (01) ==
LOC: SDC 15:39
PROVIDERS: ATTEND Nurse Practitioner Family
DX: R10.9 Unspecified abdominal pain (principal); R19.7 Diarrhea, unspecified
CPT/HCPCS: 36415; 74018; 80053; 81000; 85027; 87088; 96375

== ENCOUNTER → 2020-04-29 | Outpatient (CLI) | payer MEDICARE, OTHER | LOC: LAB 10:08 | PROVIDERS: ATTEND Family Medicine | DX: Z01.89 Encounter for other specified special examinations (principal) | CPT/HCPCS: 87015; 87045; 87046; 87324; 87449; 87899 ==

== ENCOUNTER 2020-05-01 09:09 | Outpatient (CLI) | payer MEDICARE, OTHER ==
[~2020-05-01] VITALS: Ht 165.1 cm; Wt 80.0 kg
[2020-05-01] MEDS ORDERED: NS IV 1000 ML 1,000 ML ONE (09:23)
[2020-05-01] MEDS ORDERED: metroNIDAZOLE 500MG/100ML IVPB 100 ML ONE (09:23)
[2020-05-01] MEDS ORDERED: metroNIDAZOLE 500 MG/100 ML IVPB (PRE-MIX) IV ONE (09:45)
[2020-05-01] MEDS ORDERED: NS IV 1000 ML 1,000 ML IV NR (09:45)
[2020-05-01 11:00] VITALS: BP 126/65
== END 2020-05-01 11:00 | disposition home or self-care (01) ==
LOC: SDC 09:09 → EDSTATUS 09:16 → SDC 11:00
PROVIDERS: ATTEND Nurse Practitioner Family
DX: R10.32 Left lower quadrant pain (principal); R11.0 Nausea
CPT/HCPCS: 96360; 96368

== ENCOUNTER → 2020-05-03 | Outpatient (CLI) | payer MEDICARE, OTHER ==
--- NOTE | 2020-05-03 15:20 | Diagnostic Imaging Report ---
PROCEDURE: CT abdomen and pelvis without contrast. TECHNIQUE: Multiple contiguous axial images were obtained through the abdomen and pelvis without the use of intravenous contrast. Auto Exposure Controls were utilized during the CT exam to meet ALARA standards for radiation dose reduction. INDICATION: Left lower quadrant pain with nausea and diarrhea. COMPARISON: Prior CT from 01/26/2019. FINDINGS: The lung bases are clear. The liver is unremarkable. The gallbladder is surgically absent. No biliary ductal dilatation is seen. The pancreas and spleen are unremarkable. No adrenal mass is detected. The kidneys are unremarkable. No calculus or hydronephrosis is identified. The aorta is non-aneurysmal. The bowel loops are of normal caliber. No obstruction is seen. There is diverticulosis of the sigmoid and descending colon but no evidence of acute diverticulitis. No free fluid or fluid collection is detected. The bladder does sit somewhat low in the pelvis, suggestive of pelvic relaxation. The bony structures demonstrate postop changes of posterior instrumented fusion in the lower lumbar spine. IMPRESSION: Stable chronic changes when compared with the exam from 01/26/2019. There is diverticulosis without evidence of acute diverticulitis. No acute feature is identified. Dictated by: Dictated on workstation # [id number]
== END ==
LOC: RAD 14:02
PROVIDERS: ATTEND Nurse Practitioner Family
DX: K57.30 Diverticulosis of large intestine without perforation or abscess without bleeding (principal); Z90.49 Acquired absence of other specified parts of digestive tract; Z98.890 Other specified postprocedural states
CPT/HCPCS: 74176

== ENCOUNTER 2020-05-11 08:15 | Outpatient (RCR) | payer MEDICARE, OTHER ==
[2020-05-11 08:23] LABS: BILIRUBIN,URINE NEGATIVE (NEGATIVE); CLARITY,URINE CLEAR; COLOR,URINE YELLOW; GLUCOSE, URINE (UA) NEGATIVE (NEGATIVE); KETONES,URINE NEGATIVE (NEGATIVE); LEUKOCYTE ESTERASE ,URINE 2+ (NEGATIVE); NITRITE,URINE NEGATIVE (NEGATIVE); PH,URINE 6.5 (5-9); PROTEIN,URINE NEGATIVE (NEGATIVE)
[2020-05-11 08:35] LABS: BACTERIA,URINE MODERATE /HPF
== END 2020-08-08 | disposition home or self-care (01) ==
LOC: LAB 08:15
PROVIDERS: ATTEND Internal Medicine Gastroenterology
DX: R19.7 Diarrhea, unspecified (principal); R19.8 Other specified symptoms and signs involving the digestive system and abdomen; R10.9 Unspecified abdominal pain; R19.5 Other fecal abnormalities; R31.9 Hematuria, unspecified
CPT/HCPCS: 36415; 81000; 85652; 86141; 87088; 89055

== ENCOUNTER → 2020-05-19 | Outpatient (CLI) | payer MEDICARE, OTHER | LOC: LABNPT 05:48 | PROVIDERS: ATTEND Internal Medicine Gastroenterology | DX: Z01.812 Encounter for preprocedural laboratory examination (principal) ==

== ENCOUNTER → 2020-06-06 | Outpatient (CLI) | payer MEDICARE, OTHER | LOC: LAB 11:31 | PROVIDERS: ATTEND Internal Medicine Gastroenterology | DX: K76.9 Liver disease, unspecified (principal); R79.9 Abnormal finding of blood chemistry, unspecified | CPT/HCPCS: 36415 ==

== ENCOUNTER → 2021-02-19 | Outpatient (CLI) | payer MEDICARE, OTHER ==
[~2021-02-19] MED LIST changes: -OXYC-471 PO; +OXYC1TAB11 PO
--- NOTE | 2021-02-19 15:33 | Diagnostic Imaging Report ---
PROCEDURE: CT head without contrast. TECHNIQUE: Multiple contiguous axial images were obtained through the brain without the use of intravenous contrast. Auto Exposure Controls were utilized during the CT exam to meet ALARA standards for radiation dose reduction. INDICATION: Right orbital bleeding per flat hammerer. COMPARISON: None available. FINDINGS: No intracranial hyperdense hemorrhage or space-occupying mass. No hydrocephalus or midline shift. Downing-white matter differentiation is preserved. Global atrophy is noted. Periventricular white matter hypoattenuation is most compatible with chronic microvascular ischemic disease. No skull fracture. Paranasal sinuses and mastoid air cells are clear. Bilateral lens surgery has been performed. No abnormal stranding within the intraorbital fat. IMPRESSION: 1. No acute intracranial hemorrhage or features of large territorial infarct. 2. Global atrophy with chronic microvascular ischemic disease. Dictated by: Dictated on workstation # [id number]
[2021-02-19 16:52] LABS: CREATINE KINASE 113 U/L (29-168)
[2021-02-19 16:59] LABS: CREATINE KINASE MB 2.8 NG/ML (<6.6)
[2021-02-19 17:06] LABS: ALBUMIN 4.2 GM/DL (3.2-4.5); CHLORIDE 107 MMOL/L (98-107); POTASSIUM 4.3 MMOL/L (3.6-5.0); SODIUM 144 MMOL/L (135-145)
[2021-02-19 17:07] LABS: CALCIUM 10.1 MG/DL (8.5-10.1)
[2021-02-19 17:08] LABS: GLUCOSE 120 MG/DL (70-105); TOTAL PROTEIN 6.7 GM/DL (6.4-8.2)
[2021-02-19 17:09] LABS: CARBON DIOXIDE 27 MMOL/L (21-32)
[2021-02-19 17:10] LABS: BILIRUBIN,TOTAL 0.5 MG/DL (0.1-1.0)
[2021-02-19 17:12] LABS: ALKALINE PHOSPHATASE 64 U/L (40-136); GFR ESTIMATED > 60
[2021-02-19 17:13] LABS: BUN/CREATININE RATIO 15
[2021-02-19 17:15] LABS: ALANINE AMINOTRANSFERASE 18 U/L (0-55)
== END ==
LOC: RAD 14:37
PROVIDERS: ATTEND Family Medicine
DX: H05.231 Hemorrhage of right orbit (principal); I16.0 Hypertensive urgency; I67.82 Cerebral ischemia
CPT/HCPCS: 36415; 70450; 80053; 82550; 82553; 83874; 84484

== ENCOUNTER → 2021-02-28 | Outpatient (CLI) | payer MEDICARE, OTHER | LOC: CARD 09:30 | PROVIDERS: ATTEND Internal Medicine Cardiovascular Disease | DX: I11.9 Hypertensive heart disease without heart failure (principal); I25.10 Atherosclerotic heart disease of native coronary artery without angina pectoris | CPT/HCPCS: 93306 ==

== ENCOUNTER 2021-06-18 09:00 | Outpatient (RCR) | payer MEDICARE, OTHER | END 2021-06-18 10:30 | disposition home or self-care (01) | PROVIDERS: ATTEND Family Medicine | DX: G25.0 Essential tremor (principal) ==

== ENCOUNTER 2022-06-04 07:16 | Emergency (ER) | payer MEDICARE, OTHER ==
[~2022-06-04] VITALS: Ht 165 cm; Wt 76.2 kg
[2022-06-04 07:55] LABS: BASOPHILS % (AUTO) 0 % (0-10); EOSINOPHILS # (AUTO) 0.3 10^3/uL (0.0-0.3); EOSINOPHILS % (AUTO) 5 % (0-10); HEMATOCRIT 46 % (35-52); HEMOGLOBIN 14.4 g/dL (11.5-16.0); LYMPHOCYTES # (AUTO) 1.9 10^3/uL (1.0-4.0); LYMPHOCYTES % (AUTO) 31 % (12-44); MEAN CORPUSCULAR HEMOGLOBIN 30 pg (25-34); MEAN CORPUSCULAR HGB CONC 32 g/dL (32-36); MEAN CORPUSCULAR VOLUME 95 fL (80-99); MEAN PLATELET VOLUME 10.8 fL (9.0-12.2); MONOCYTES # (AUTO) 0.6 10^3/uL (0.0-1.0); MONOCYTES % (AUTO) 10 % (0-12); NEUTROPHILS # (AUTO) 3.2 10^3/uL (1.8-7.8); NEUTROPHILS % (AUTO) 53 % (42-75); PLATELET COUNT 214 10^3/uL (130-400)
[2022-06-04 07:59] LABS: ALBUMIN 4.2 GM/DL (3.2-4.5); CHLORIDE 105 MMOL/L (98-107); SODIUM 145 MMOL/L (135-145)
[2022-06-04 08:01] LABS: CALCIUM 9.6 MG/DL (8.5-10.1)
[2022-06-04 08:02] LABS: GLUCOSE 128 MG/DL (70-105); TOTAL PROTEIN 6.8 GM/DL (6.4-8.2)
[2022-06-04 08:03] LABS: CARBON DIOXIDE 26 MMOL/L (21-32)
[2022-06-04 08:04] LABS: BILIRUBIN,TOTAL 0.6 MG/DL (0.1-1.0)
[2022-06-04 08:05] LABS: ALKALINE PHOSPHATASE 80 U/L (40-136); CREATININE SERUM 0.88 MG/DL (0.60-1.30); GFR ESTIMATED 66
[2022-06-04 08:07] LABS: BUN/CREATININE RATIO 18
[2022-06-04 08:08] LABS: ALANINE AMINOTRANSFERASE 22 U/L (0-55)
[2022-06-04] MEDS ORDERED: ASPIRIN 81 MG CHEW (CHILDREN'S ASA) PO ONE (08:30)
[2022-06-04] MEDS ORDERED: NITROGLYCERIN 0.4 MG SL TABS BTL 25'S SL PRN (08:30)
--- NOTE | 2022-06-04 08:55 | Diagnostic Imaging Report ---
EXAMINATION: Chest 1 view HISTORY: Chest pain. COMPARISON: 11/28/2015 FINDINGS: The lungs are clear without edema or pneumonia. No pleural effusion or pneumothorax. Heart size is normal. IMPRESSION: 1. Clear lungs. Dictated by: Dictated on workstation # [id number]
--- NOTE | 2022-06-04 11:18 | Diagnostic Imaging Report ---
PROCEDURE: US Venous Lower Ext José Antonio. TECHNIQUE: Multiple Real-time grayscale images were obtained over the lower extremities in various projections, bilaterally. Additional duplex Doppler and color Doppler images were also obtained. INDICATION: Lower extremities demonstrating pain and edema with elevated d-dimer. FINDINGS: Continuous venous flow is present. No intraluminal filling defect is identified. There is normal compressibility and response to augmentation. No abnormal perivascular fluid collection is identified. IMPRESSION: No ultrasound evidence of left lower extremity deep venous thrombosis. Dictated by: Dictated on workstation # [id number]
--- NOTE | 2022-06-04 14:13 | ED Chest Pain ---
General Chief Complaint: Chest Pain Stated Complaint: CHEST PAIN - LEFT ARM PAIN Nursing Triage Note: PT PRESENTS TO ED VIA POV FROM HOME WITH COMPLAINTS L SIDED CP STARTING THIS AM WHEN SHE WOKE UP. Source: patient Exam Limitations: no limitations Allergies and Home Medications Allergies Coded Allergies: Iodinated Contrast Media (Verified Allergy, Unknown, 07/23/19) FROM UNCODED ALLERGY LIST iodine (Verified Allergy, Unknown, 01/20/19) morphine (Verified Allergy, Unknown, 01/20/19) oxycodone (Verified Allergy, Unknown, 07/23/19) Patient Home Medication List Cyanocobalamin (Vitamin B-12) (Vitamin B-12) 1,000 Mcg Tablet.er, 1,000 MCG PO DAILY, (Reported) Entered as Reported by: FREDY POWERS on 11/28/15 09 Ezetimibe (Ezetimibe) 10 Mg Tablet, 10 MG PO DAILY, (Reported) Entered as Reported by: MICHAEL PIZARRO on 07/16/19 1555 Famotidine (Famotidine) 20 Mg Tablet, 20 MG PO DAILY, (Reported) Entered as Reported by: FREDY POWERS on 11/28/15 09 Gabapentin (Gabapentin) 300 Mg Capsule, 300 MG PO TID, (Reported) Entered as Reported by: FREDY POWERS on 11/28/15 0946 Levothyroxine Sodium (Levothyroxine Sodium) 100 Mcg Tablet, 100 MCG PO DAILY, (Reported) Entered as Reported by: FREDY POWERS on 11/28/15 0946 [place]-3 Fatty Acids/Fish Oil (Fish Oil 1,000 mg Softgel) 1 Each Capsule, 1,000 MG PO DAILY, (Reported) Entered as Reported by: MICHAEL PIZARRO on 07/14/18 1316 Rosuvastatin Calcium (Crestor) 5 Mg Tablet, 5 MG PO DAILY, (Reported) Entered as Reported by: MICHAEL PIZARRO on 07/16/19 1555 Vit C/Vit E/Lutein/Min/[place]-3 (Ocuvite Softgel) 1 Each Capsule, 4 CAP PO DAILY, (Reported) Entered as Reported by: FREDY POWERS on 11/28/15 0946 Past Ouviyvg-Ljgktz-Xyouzs Hx Patient Social History Tobacco Use?: No Substance use?: No Alcohol Use?: No Pt feels they are or have been: No Immunizations Up To Date Tetanus Booster (TDap): More than 5yrs PED Vaccines UTD: No Seasonal Allergies Seasonal Allergies: No Past Medical History Surgeries: Yes (HEMORRHOIDECTOMY, BACK X2, KNEE SCOPE, SKIN CA) Appendectomy, Hysterectomy, Neurological, Oophorectomy Respiratory: No Cardiac: Yes (LEFT BBB,) Hypertension Neurological: No Reproductive Disorders: No 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 Genitourinary: No Gastrointestinal: Yes (adenoma of the colon) Gastroesophageal Reflux, Diverticulosis, Polyps, C-Diff Musculoskeletal: Yes (POLYMYALGIA RHEUMATICA ) Arthritis, Chronic Back Pain Endocrine: Yes Hypothyroidsim Cataract Loss of Vision: Denies Hearing Impairment: Denies Cancer: Yes Skin What Type of Treatment Did You: Surgical Intervention Psychosocial: No Integumentary: No Blood Disorders: No Family Medical History Completed stroke 19 FATHER Myocardial infarction 19 MOTHER Heart Disease, Stroke Physical Exam Vital Signs Vital Signs - First Documented 06/04/22 07:20 Temp 36.0 Pulse 86 Resp 18 B/P (MAP) 149/82 (104) Pulse Ox 96 Capillary Refill : Less Than 3 Seconds Height, Weight, BMI Height: 5'4.00" Weight: 172lbs. 0.0oz. 78.820588lm; 27.00 BMI Method:Stated Progress/Results/Core Measures Results/Orders Lab Results Laboratory Tests Test 06/04/22 07:27 06/04/22 09:40 Range/Units White Blood Count 6.0 4.3-11.0 10^3/uL Red Blood Count 4.80 3.80-5.11 10^6/uL Hemoglobin 14.4 11.5-16.0 g/dL Hematocrit 46 35-52 % Mean Corpuscular Volume 95 80-99 fL Mean Corpuscular Hemoglobin 30 25-34 pg Mean Corpuscular Hemoglobin Concent 32 32-36 g/dL Red Cell Distribution Width 14.5 10.0-14.5 % Platelet Count 214 130-400 10^3/uL Mean Platelet Volume 10.8 9.0-12.2 fL Immature Granulocyte % (Auto) 1 % Neutrophils (%) (Auto) 53 42-75 % Lymphocytes (%) (Auto) 31 12-44 % Monocytes (%) (Auto) 10 0-12 % Eosinophils (%) (Auto) 5 0-10 % Basophils (%) (Auto) 0 0-10 % Neutrophils # (Auto) 3.2 1.8-7.8 10^3/uL Lymphocytes # (Auto) 1.9 1.0-4.0 10^3/uL Monocytes # (Auto) 0.6 0.0-1.0 10^3/uL Eosinophils # (Auto) 0.3 0.0-0.3 10^3/uL Basophils # (Auto) 0.0 0.0-0.1 10^3/uL Immature Granulocyte # (Auto) 0.0 0.0-0.1 10^3/uL Prothrombin Time 13.0 12.2-14.7 SEC INR Comment 1.0 0.8-1.4 Activated Partial Thromboplast Time 32 24-35 SEC D-Dimer 0.96 H 0.00-0.49 UG/ML Sodium Level 145 135-145 MMOL/L Potassium Level 4.0 3.6-5.0 MMOL/L Chloride Level 105 98-107 MMOL/L Carbon Dioxide Level 26 21-32 MMOL/L Anion Gap 14 5-14 MMOL/L Blood Urea Nitrogen 16 7-18 MG/DL Creatinine 0.88 0.60-1.30 MG/DL Estimat Glomerular Filtration Rate 66 BUN/Creatinine Ratio 18 Glucose Level 128 H 70-105 MG/DL Calcium Level 9.6 8.5-10.1 MG/DL Corrected Calcium 9.4 8.5-10.1 MG/DL Magnesium Level 2.2 1.6-2.4 MG/DL Total Bilirubin 0.6 0.1-1.0 MG/DL Aspartate Amino Transf (AST/SGOT) 22 5-34 U/L Alanine Aminotransferase (ALT/SGPT) 22 0-55 U/L Alkaline Phosphatase 80 40-136 U/L Myoglobin 57.1 10.0-92.0 NG/ML Troponin I < 0.028 < 0.028 <0.028 NG/ML C-Reactive Protein High Sensitivity 0.63 H 0.00-0.50 MG/DL Total Protein 6.8 6.4-8.2 GM/DL Albumin 4.2 3.2-4.5 GM/DL My Orders Orders - ELENI MENDOZA MD Ekg Tracing (06/04/22 07:48) Cbc With Automated Diff (06/04/22 07:48) Comprehensive Metabolic Panel (06/04/22 07:48) Troponin I More (06/04/22 07:48) Myoglobin Serum (06/04/22 07:48) Chest 1 View, Ap/Pa Only (06/04/22 07:48) Ed Iv/Invasive Line Start (06/04/22 07:48) Nitroglycerin 0.4 Mg Btl 25's (Nitrostat (06/04/22 08:30) Aspirin Chewable Tablet (Baby Aspirin Ch (06/04/22 08:30) Magnesium (06/04/22 08:29) Protime With Inr (06/04/22 08:29) Partial Thromboplastin Time (06/04/22 08:29) Monitor-Rhythm Ecg Trace Only (06/04/22 08:29) Lipid Panel (06/05/22 06:00) Hs C Reactive Protein (06/04/22 08:29) Fibrin Degradation Products (06/04/22 08:38) Us Venous Lower Ext José Antonio (06/04/22 09:09) Troponin I More (06/04/22 09:30) Lung Scan Perfusion (06/04/22 09:14) Medications Given in ED Current Medications Medications Dose Ordered Sig/Pamela Route Start Time Stop Time Status Last Admin Dose Admin Aspirin 324 mg ONCE ONCE PO 06/04/22 08:30 06/04/22 08:31 DC 06/04/22 08:33 324 MG Nitroglycerin 0.4 mg UD PRN SL 06/04/22 08:30 06/04/22 08:33 0.4 MG Vital Signs/I&O 06/04/22 07:20 Temp 36.0 Pulse 86 Resp 18 B/P (MAP) 149/82 (104) Pulse Ox 96 Blood Pressure Mean: 104 Departure Impression Primary Impression: Atypical chest pain Additional Impression: Elevated d-dimer Disposition: 01 HOME, SELF-CARE Condition: Improved Departure-Patient Inst. Referrals: MICA CAMEJO MD (PCP/Family) Primary Care Physician Patient Instructions: Chest Pain That Is Not Caused by the Heart (DC) Add. Discharge Instructions: Drink plenty of clear liquids to stay well-hydrated. For headache and musculoskeletal pain you may take Tylenol (acetaminophen) up to 1000 mg every 6 hours as needed. Add ibuprofen up to 400 mg every 6 hours as needed for short-term additional pain relief if needed. Follow-up with your primary care provider. Please call today or tomorrow to schedule follow-up appointment. Return to the ER if you have worsening symptoms despite following these instructions. All discharge instructions reviewed with patient and/or family. Voiced understanding. Copy Copies To 1: MICA CAMEJO MD, JOSHUA T MD Jun 04, 2022 14:13
[2022-06-04] MEDS ORDERED: KETOROLAC 30 MG/ML VIAL IVP ONE (14:15)
[2022-06-04 14:22] VITALS: BP 137/79
--- NOTE | 2022-06-04 14:28 | Diagnostic Imaging Report ---
INDICATION: Chest pain and elevated D-dimer. TECHNIQUE: The patient was administered 5.4 mCi of technetium 99m MAA intravenously and imaging over the chest was performed in multiple obliquities. FINDINGS: Fairly homogeneous perfusion of both lungs is noted. There does appear to be a small perfusion defect in the left upper lung field. No other pleural-based perfusion defects are seen. IMPRESSION: Findings consistent with low probability for pulmonary embolism. Dictated by: Dictated on workstation # [id number]
== END 2022-06-04 14:22 | disposition home or self-care (01) ==
LOC: EDUNIT# 07:16 → ER 07:18
DX: R07.89 Other chest pain (principal); R79.1 Abnormal coagulation profile
CPT/HCPCS: 71045; 78580; 80053; 83735; 83874; 84484; 85025; 85379; 85610; 85730; 86141; 93005; 93041; 93970; A9540; 36415

== ENCOUNTER → 2022-07-10 | Outpatient (CLI) | payer MEDICARE, OTHER ==
[~2022-07-10] VITALS: Ht 157 cm; Wt 76.0 kg
[~2022-07-10] MED LIST changes: +CATHETER FLUSH 10 ML SYR IVP PRN; +NITROGLYCERIN 0.4 MG SL TABS BTL 25'S SL ONE; +REGADENOSON 0.4 MG/5 ML SYR (LEXISCAN) IV ONE
[2022-07-10 09:16] VITALS: BP 177/86
[2022-07-10 09:18] VITALS: BP 146/72
--- NOTE | 2022-07-10 11:24 | Cardiology Stress Test Report ---
Stress Test Report Date of Procedure/Referring: Date of Procedure: Jul 10, 2022 PCP Mica Villatoro MD Admitting Physician Admitting Physician: Attending Physician: Petty Jin MD Indications: CAD Baseline Heart Rate: 85 Baseline Blood Pressure: Blood Pressure Systolic: 146 Blood Pressure Diastolic: 72 Baseline Vitals Vital Signs Date Time Temp Pulse Resp B/P (MAP) Pulse Ox O2 Delivery O2 Flow Rate FiO2 07/10/22 09:16 94 17 177/86 (116) Baseline EKG: Baseline EKG: LBBB Summary After explaining the procedure to the patient, she signed a consent and then brought to the stress nuclear laboratory. Patient received 0.4 mg Lexiscan for stress test, ECG, heart rate and blood pressure were monitored continuously. Resting and stress dose of radio tracer were injected, imaging was acquired and reviewed in short axis, horizontal long axis and vertical long axis views. TID: 0.99 SSS: 6 SDS: 2 EF: 74 1. Patient tolerated Lexiscan well, patient was very anxious after the test and she had some jaw pain. 2. Baseline left bundle branch block with frequent atrial premature contractions noted during test 3. Small left ventricular size affecting the quality of the images there is questionable minimal ischemia at the inferior septum. Overall there is no significant ischemia or infarction on SPECT images 4. Small left ventricle with normal contractility, ejection fraction 74% Copy Copies To 1: MICA VILLATORO MD, BASHAR J MD Jul 10, 2022 11:24
== END ==
LOC: CARD 07:45
PROVIDERS: ATTEND Internal Medicine Cardiovascular Disease
DX: I10 Essential (primary) hypertension (principal); I25.10 Atherosclerotic heart disease of native coronary artery without angina pectoris
CPT/HCPCS: 78452; 93017; A9502

== ENCOUNTER → 2022-11-05 | Outpatient (CLI) | payer MEDICARE, OTHER ==
[~2022-11-05] MED LIST changes: -CATHETER FLUSH 10 ML SYR IVP PRN; +DIPH-1122 PO; -DIPH25CA48 PO; -NITROGLYCERIN 0.4 MG SL TABS BTL 25'S SL ONE; -OMEG1CAP13 PO; +OMEG1CAP33 PO; -REGADENOSON 0.4 MG/5 ML SYR (LEXISCAN) IV ONE
--- NOTE | 2022-11-05 13:46 | Diagnostic Imaging Report ---
Indication: Right shoulder pain AP, oblique, and transscapular views of the right shoulder obtained. No fracture or acute bony abnormality seen. There is mild inferior acromial spurring and degenerative change of the AC joint. Glenohumeral joint appears unremarkable. Impression: Degenerative changes of right shoulder with no acute abnormality. Dictated by: Dictated on workstation # [id number]
--- NOTE | 2022-11-05 13:47 | Diagnostic Imaging Report ---
INDICATION: Right humeral pain post injury. AP and lateral views of the right humerus are obtained. No fracture or acute bony abnormality seen. IMPRESSION: Negative right humerus. Dictated by: Dictated on workstation # [id number]
== END ==
LOC: RAD 13:21
PROVIDERS: ATTEND Family Medicine
DX: M19.011 Primary osteoarthritis, right shoulder (principal); M79.621 Pain in right upper arm
CPT/HCPCS: 73030; 73060

== ENCOUNTER 2023-04-02 12:48 | Inpatient (IN) | payer MEDICARE, OTHER ==
[~2023-04-02] VITALS: Ht 165.1 cm; Wt 81.2 kg
[~2023-04-02 12:48] MED LIST changes: +ACET-2267 PO; +ASPI-1238 PO; +CELE-63 PO; +DICL20GE TP; +DULO20CA19 PO; +GABA300C PO; +IBUP-2185 PO; -LOSA100T57 PO; +LOSA100T58 PO; +Lidocaine 4% Patch TOP; +MERO500P IV; +MTP25TSR PO; +MV-M1CAP24 PO; +ONDA4TAB11 PO; +PREVAGEN PO; +RIVA20TA2 PO; +ROSU5TAB13 PO; +UBID100C17 PO
[2023-04-02] MEDS ORDERED: LOPERAMIDE 2 MG (IMODIUM) TABLET PO PRN (13:45)
[2023-04-02] MEDS ORDERED: DOCUSATE SODIUM 100 MG CAPSULE PO PRN (13:45)
[2023-04-02] MEDS ORDERED: ONDANSETRON 4 MG (ZOFRAN) ORAL DISSOLVE TAB PO PRN (13:45)
[2023-04-02] MEDS ORDERED: diphenhydrAMINE 25 MG TABLET PO PRN (13:45)
[2023-04-02] MEDS ORDERED: FLEET ENEMA ADULT 1 EA BTL PR PRN (13:45)
[2023-04-02] MEDS ORDERED: ALPRAZolam 0.25 MG TABLET PO PRN (13:45)
[2023-04-02] MEDS ORDERED: MELATONIN 3 MG TABLET PO PRN (13:45)
[2023-04-02] MEDS ORDERED: BISACODYL 10 MG SUPPOSITORY PR PRN (13:45)
[2023-04-02] MEDS ORDERED: LACTULOSE SYRUP 10GM/15ML (ENULOSE) 30ML UDC PO PRN (13:45)
[2023-04-02] MEDS ORDERED: CALCIUM CARBONATE 500 MG CHEW TABLET PO PRN (13:45)
[2023-04-02] MEDS ORDERED: guaiFENesin/CODEINE (ROBITUSSIN AC) 10ML UDC PO PRN (13:45)
--- NOTE | 2023-04-02 13:45 | PM&R Post Admission Assessment ---
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 She had complete heart block assessed ultimately was maintained on IV antibiotics to assure that pacemaker implantation would not be complicated with bacterial infection. She underwent leadless pacemaker placement at [facility] and she returns today in the much improved state but still severely weak. She resides at home with her daughter who takes care of of both her parents. The goal is to regain function and increase strength and monitor heart rhythm closely.She has completed UTI treatment. To note she did sustain a left rotator cuff injury and she remains with a sling for her left arm. Orthopedic surgery has been consulted during her recent inpatient stay prior to pacemaker placement. Past Mopqwfg-[id number]-[id number] Hx Past Med/Social Hx: Reviewed Nursing Past Med/Soc Hx, Reviewed and Corrections made Patient Social History Marrital Status: Employed/Student: retired Alcohol Use: Denies Use Smoking Status: Never a Smoker 2nd Hand Smoke Exposure: No Recent Hopitalizations: No Immunizations Up To Date Tetanus Booster (TDap): More than 5yrs Pediatric: No Date of Pneumonia Vaccine: Jun 08, 2010 Date of Influenza Vaccine: Jun 08, 2019 Seasonal Allergies Seasonal Allergies: No Past Medical History Surgeries: Appendectomy, Hysterectomy, Neurological, Oophorectomy, Pacemaker (04/01/2023 [place] leadless) Cardiac: Atrial Fibrillation, Hypertension Symptomatic and severe bradycardia with complete heart block requiring lead Reproductive: No Menopausal Gastrointestinal: Gastroesophageal Reflux, Diverticulosis, Polyps, C-Diff Musculoskeletal: Arthritis, Chronic Back Pain Endocrine: Hypothyroidsim HEENT: Cataract Loss of Vision: Denies Hearing Impairment: Denies Cancer: Skin What Type of Treatment Did You: Surgical Intervention History of Blood Disorders: No Family History Completed stroke 19 FATHER Myocardial infarction 19 MOTHER Heart Disease, Stroke PM&R Allergy/Meds/Data Review Allergies Coded Allergies: vancomycin (Verified Allergy, Intermediate, Rash, 04/02/23) Cephalosporins (Verified Allergy, Unknown, 06/21/22) Iodinated Contrast Media (Verified Allergy, Unknown, 07/23/19) FROM UNCODED ALLERGY LIST ciprofloxacin (Verified Allergy, Unknown, 03/27/23) iodine (Verified Allergy, Unknown, 01/20/19) morphine (Verified Allergy, Unknown, 01/20/19) oxycodone (Verified Allergy, Unknown, 07/23/19) sulfamethoxazole (Verified Allergy, Unknown, 03/27/23) trimethoprim (Verified Allergy, Unknown, 03/27/23) Home Medications Scheduled Aspirin (Aspirin EC), 81 MG PO DAILY, (Reported) Duloxetine HCl (Duloxetine HCl), 20 MG PO DAILY, (Reported) Ezetimibe (Ezetimibe), 10 MG PO DAILY, (Reported) Famotidine (Famotidine), 20 MG PO HS, (Reported) Gabapentin (Neurontin), 600 MG PO DAILY, (Reported) Gabapentin (Neurontin), 900 MG PO HS, (Reported) Levothyroxine Sodium (Levothyroxine Sodium), 100 MCG PO DAILY, (Reported) Melatonin (Melatonin), 6 MG PO HS, (Reported) Metoprolol Succinate (Metoprolol Succinate), 12.5 MG PO DAILY, (Reported) Mv-Mn/Om3/Dha/Epa/Fish/Lut/Lonnie (Ocuvite Adult 50 Plus Softgel), 2 EACH PO DAILY, (Reported) [place]-3 Fatty Acids/Fish Oil (Fish Oil 1,000 mg Softgel), 2,000 MG PO DAILY, (Reported) Rosuvastatin Calcium (Rosuvastatin Calcium), 5 MG PO DAILY, (Reported) Ubidecarenone (Co Q-10), 50 MG PO DAILY, (Reported) [Prevagen], 1 EA PO DAILY, (Reported) Scheduled PRN Hydrocodone/Acetaminophen (Hydrocodone-Acetamin 5-325 mg), 1-2 TAB PO Q4H PRN for PAIN-MODERATE (5-7), (Reported) Discontinued Medications Acetaminophen (Tylenol Extra Strength), 1,000 MG PO Q8H PRN for PAIN-MILD (1-4), (Reported) Discontinued Reason: No Longer Taking Celecoxib (Celecoxib), 200 MG PO BID, (Reported) Discontinued Reason: No Longer Taking Cyanocobalamin (Vitamin B-12) (Vitamin B-12), 1,000 MCG PO DAILY, (Reported) Discontinued Reason: No Longer Taking Diclofenac Sodium (Voltaren Arthritis Pain), 1 APPLIC TP TID PRN for PAIN- BREAKTHROUGH, (Reported) Discontinued Reason: No Longer Taking Gabapentin (Gabapentin), 300 MG PO TID, (Reported) Discontinued Reason: No Longer Taking Ibuprofen (Ibuprofen), 400 MG PO Q8H PRN for PAIN-MILD (1-4), (Reported) Discontinued Reason: No Longer Taking Meropenem-0.9% Sodium Chloride (Meropenem-0.9% NaCl 500 mg/50), 500 MG IV Q8H Discontinued Reason: No Longer Taking Ondansetron (Ondansetron Odt), 4 MG PO Q8H PRN for NAUSEA/VOMITING-1ST LINE, (Reported) Discontinued Reason: No Longer Taking Rivaroxaban (Xarelto Tablet), 20 MG PO DAILY@1700 Discontinued Reason: No Longer Taking Rosuvastatin Calcium (Crestor), 5 MG PO DAILY, (Reported) Discontinued Reason: No Longer Taking Ubidecarenone (Coq-10), 100 MG PO DAILY, (Reported) Discontinued Reason: Prescription changed Vit C/Vit E/Lutein/Min/[place]-3 (Ocuvite Softgel), 4 CAP PO DAILY, (Reported) Discontinued Reason: No Longer Taking [Lidocaine 4% Patch], 1 EA TOP DAILY Discontinued Reason: No Longer Taking Current Medications Current Medications Reviewed Review of Systems Constitutional: see HPI, dizziness, malaise, weakness EENTM: no symptoms reported Respiratory: no symptoms reported Cardiovascular: no symptoms reported Gastrointestinal: constipation Genitourinary: no symptoms reported Musculoskeletal: back pain, joint pain Skin: no symptoms reported Psychiatric/Neurological: No Symptoms Reported All Other Systems Reviewed Negative Unless Noted: Yes Physical Exam Physical Exam Vital Signs Capillary Refill : Height, Weight, BMI Height: 5'4.00" Weight: 172lbs. 0.0oz. [id number]; 29.93 BMI Method:Stated General Appearance: No Apparent Distress, WD/WN, Chronically ill, Obese Eyes: Bilateral Eye Normal Inspection, Bilateral Eye PERRL HEENT: PERRL/EOMI, Normal ENT Inspection, Pharynx Normal Neck: Full Range of Motion, Normal Inspection, Non Tender, Supple, Carotid Bruit Respiratory: Chest Non Tender, Lungs Clear, Normal Breath Sounds, No Accessory Muscle Use, No Respiratory Distress Cardiovascular: Regular Rate, Rhythm, No Edema, No Gallop, No JVD, No Murmur, Normal Peripheral Pulses Gastrointestinal: Normal Bowel Sounds, No Organomegaly, No Pulsatile Mass, Non Tender, Soft Back: Normal Inspection, No CVA Tenderness, No Vertebral Tenderness Extremity: Normal Capillary Refill, Normal Inspection, Normal Range of Motion (Except left arm in sling), Non Tender, No Calf Tenderness, No Pedal Edema Neurologic/Psychiatric: Alert, Oriented x3, Normal 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, 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 Norm as Tested, Abnormal Gait, Depressed Affect, Motor Weakness ( generalized 4/5) Skin: Normal Color, Warm/Dry Lymphatic: No Adenopathy PM&R Medical Assessment & Plan REHAB/MEDICAL ASSESSMENT AND PLAN: REHAB IMPAIRMENT GROUP: 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 with encephalopathy from UTI ETIOLOGIC DIAGNOSIS: 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 with encephalopathy from UTI The comorbidities that impact the patients function and/or functional outcome by: recent UTI, advanced age, fall risk, left rotator cuff injury REHAB PLAN: The patient is being admitted to our comprehensive inpatient rehabilitation facility and can tolerate the intensity of service consisting of at least: 180 minutes of therapy a day, 5 out of 7 days a week Rehab treatment will consist of: PT and OT will focus on regaining function with use of assistive devices while maintaining left arm limitations in sling in order to return back home to independent living with spouse The patient/family has a good understanding of our discharge process and will benefit from an interdisciplinary inpatient rehabilitation program. The patient has potential to make improvement and is in need of at least two of the following multidisciplinary therapies including but not limited to physical, occupational, speech, and prosthetics and orthotics. Additionally the patient will need services from respiratory, nutritional services, wound care, psychology, etc. (Customize this to each patient). Given the patients complex condition and risk of further medical complications, rehabilitation services cannot be safely or effectively provided at a lower level of care such as a custodial facility. BARRIERS TO DISCHARGE: advanced age with left arm limitation ESTIMATED LOS: 7 days DISPOSITION: home RELEVANT CHANGES SINCE PREADMISSION SCREENING: I have compared the patients medical and functional status at the time of the preadmission screening and there are: no changes PROGNOSIS: good REHABILITATION GOALS: 1. PT and OT will focus on regaining function with use of assistive devices while maintaining left arm limitations in sling in order to return back home to independent living with spouse All the above goals were reviewed with the patient and he/she is in agreement. By signing this document, I acknowledge that I have personally performed a full physical examination on this patient within 24 hours of admission to this inpatient rehabilitation facility and have determined the patient to be able to tolerate the above course of treatment at an intensive level for a reasonable period of time. I will be completing a detailed individualized Plan of Care for this patient by day #4 of the patients stay based upon the Preadmission Screen, the Post-Admission Evaluation, and the therapy evaluations. Admission Dx/Comorbidities: (1) Myopathy ICD Codes: G72.9 - Myopathy, unspecified (2) Complete heart block ICD Codes: I44.2 - Atrioventricular block, complete (3) Encephalopathy ICD Codes: G93.40 - Encephalopathy, unspecified (4) S/P placement of leadless cardiac pacemaker ICD Codes: Z95.0 - Presence of cardiac pacemaker (5) Injury of left rotator cuff ICD Codes: S46.002A - Unspecified injury of muscle(s) and tendon(s) of the rotator cuff of left shoulder, initial encounter Assessment/Plan Assessment and Plan Assess & Plan/Chief Complaint 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 on 04/01/2023 Encephalopathy from UTI much improved Fall Left rotator cuff injury remains in sling Hypertension Plan: Aggressive PT and OT Ultimately return back home to spouse Decrease rn document improvement burden for daughter JUSTIN KOWALSKI DO Apr 02, 2023 13:45
[2023-04-02] MEDS ORDERED: ACHD5005 PO (15:30)
[2023-04-02] MEDS ORDERED: UBID50CA21 PO (15:30)
[2023-04-02 20:15] VITALS: BP 165/68
[2023-04-02] MEDS: polyethylene glycoL POWDER 17 GM (MIRALAX) PACK PO SCH (21:15)
[2023-04-02] MEDS: MELATONIN 3 MG TABLET PO SCH (21:44)
[2023-04-02] MEDS: DOCUSATE SODIUM 100 MG CAPSULE PO SCH (21:44)
[2023-04-02] MEDS: GABAPENTIN 300 MG (NEURONTIN) CAP PO SCH (21:44)
[2023-04-02] MEDS: FAMOTIDINE 20 MG TABLET PO SCH (21:44)
[2023-04-02] MEDS: SENNA W/DOCUSATE (SENOKOT S) TABLET PO SCH (21:45)
[2023-04-03 06:07] LABS: BASOPHILS % (AUTO) 0 % (0-10); EOSINOPHILS # (AUTO) 0.2 10^3/uL (0.0-0.3); EOSINOPHILS % (AUTO) 2 % (0-10); HEMATOCRIT 40 % (35-52); HEMOGLOBIN 12.9 g/dL (11.5-16.0); LYMPHOCYTES # (AUTO) 2.8 10^3/uL (1.0-4.0); LYMPHOCYTES % (AUTO) 31 % (12-44); MEAN CORPUSCULAR HEMOGLOBIN 31 pg (25-34); MEAN CORPUSCULAR HGB CONC 32 g/dL (32-36); MEAN CORPUSCULAR VOLUME 97 fL (80-99); MEAN PLATELET VOLUME 10.5 fL (9.0-12.2); MONOCYTES # (AUTO) 0.6 10^3/uL (0.0-1.0); MONOCYTES % (AUTO) 7 % (0-12); NEUTROPHILS # (AUTO) 5.3 10^3/uL (1.8-7.8); NEUTROPHILS % (AUTO) 59 % (42-75); PLATELET COUNT 198 10^3/uL (130-400)
[2023-04-03 06:18] LABS: ALBUMIN 3.3 GM/DL (3.2-4.5)
[2023-04-03 06:19] LABS: POTASSIUM 3.6 MMOL/L (3.6-5.0)
[2023-04-03 06:21] LABS: TOTAL PROTEIN 5.2 GM/DL (6.4-8.2)
[2023-04-03 06:23] LABS: BILIRUBIN,TOTAL 0.4 MG/DL (0.1-1.0)
[2023-04-03 06:25] LABS: CREATININE SERUM 0.7 MG/DL (0.60-1.30)
[2023-04-03] MEDS: LEVOTHYROXINE 100 MCG (LEVOTHROID) TAB PO SCH (06:27)
[2023-04-03] MEDS: MULTIVIT W/MINERALS TAB (THERAGRAN M) PO SCH (06:27)
[2023-04-03] MEDS: polyethylene glycoL POWDER 17 GM (MIRALAX) PACK PO SCH ×2 (08:00→20:45)
[2023-04-03] MEDS: OMEGA 3 (FISH OIL) 1000 MG CAP PO SCH (08:02)
[2023-04-03] MEDS: DULoxetine 20 MG CAPSULE PO SCH (08:02)
[2023-04-03] MEDS: SENNA W/DOCUSATE (SENOKOT S) TABLET PO SCH ×2 (08:02→20:45)
[2023-04-03] MEDS: ASPIRIN enteric coated 81MG TABLET PO SCH (08:02)
[2023-04-03] MEDS: DOCUSATE SODIUM 100 MG CAPSULE PO SCH ×2 (08:02→20:49)
[2023-04-03] MEDS: GABAPENTIN 300 MG (NEURONTIN) CAP PO SCH ×2 (08:03→20:49)
--- NOTE | 2023-04-03 08:14 | Consultation-Cardiology ---
HPI-Cardiology Cardiology Consultation Date of Consultation 04/03/23 Date of Admission Time Seen by Provider: 08:15 Indication: s/p PPM HPI Patient is an 82 y/o female with history of SSS, CAD. Was hospitalized March 27, 2023 for UTI, high grade AV block, was transferred to [facility] where she underwent leadless PPM implanation with Dr. Sam. Patient now back in [place] in [facility] d/t generalized debility/weakness. Denies any chest pain or dyspnea. C/o weakness and shakiness Home Medications & Allergies Allergies: Coded Allergies: vancomycin (Verified Allergy, Intermediate, Rash, 04/02/23) Cephalosporins (Verified Allergy, Unknown, 06/21/22) Iodinated Contrast Media (Verified Allergy, Unknown, 07/23/19) FROM UNCODED ALLERGY LIST ciprofloxacin (Verified Allergy, Unknown, 03/27/23) iodine (Verified Allergy, Unknown, 01/20/19) morphine (Verified Allergy, Unknown, 01/20/19) oxycodone (Verified Allergy, Unknown, 07/23/19) sulfamethoxazole (Verified Allergy, Unknown, 03/27/23) trimethoprim (Verified Allergy, Unknown, 03/27/23) Home Medication List Reviewed: Yes [id number] Hx Patient Social History Marital Status: Employed/Student: retired Smoking Status: Never a Smoker Former smoker/When Quit: Apr 06, 1960 2nd Hand Smoke Exposure: No Recent Hopitalizations: No Alcohol Use?: No Immunizations Up To Date Tetanus Booster (TDap): More than 5yrs Date of Pneumonia Vaccine: Jun 08, 2010 Date of Influenza Vaccine: Jun 08, 2019 Past Medical History High grade AV block, s/p PPM, HTN, HLP Family Medical History Significant Family History: Heart Disease, Stroke Family History: Completed stroke 19 FATHER Myocardial infarction 19 MOTHER Review of Systems-General Review of Systems Constitutional: see HPI, dizziness, malaise, weakness EENTM: no symptoms reported Respiratory: no symptoms reported Cardiovascular: no symptoms reported Gastrointestinal: constipation Genitourinary: no symptoms reported Musculoskeletal: back pain, joint pain Skin: no symptoms reported Psychiatric/Neurological: No Symptoms Reported All Other Systems Reviewed Negative Unless Noted: Yes Reviewed Test Results Reviewed Test Results Lab Laboratory Tests 04/03/23 05:50: White Blood Count 9.0, Red Blood Count 4.13, Hemoglobin 12.9, Hematocrit 40, Mean Corpuscular Volume 97, Mean Corpuscular Hemoglobin 31, Mean Corpuscular Hemoglobin Concent 32, Red Cell Distribution Width 14.9H, Platelet Count 198, Mean Platelet Volume 10.5, Immature Granulocyte % (Auto) 1, Neutrophils (%) (Auto) 59, Lymphocytes (%) (Auto) 31, Monocytes (%) (Auto) 7, Eosinophils (%) (Auto) 2, Basophils (%) (Auto) 0, Neutrophils # (Auto) 5.3, Lymphocytes # (Auto) 2.8, Monocytes # (Auto) 0.6, Eosinophils # (Auto) 0.2, Basophils # (Auto) 0.0, Immature Granulocyte # (Auto) 0.1, Sodium Level 145, Potassium Level 3.6, Chloride Level 111H, Carbon Dioxide Level 26, Anion Gap 8, Blood Urea Nitrogen 13, Creatinine 0.70, Estimat Glomerular Filtration Rate 86, BUN/Creatinine Ratio 19, Glucose Level 106H, Calcium Level 9.0, Corrected Calcium 9.6, Total Bilirubin 0.4, Aspartate Amino Transf (AST/SGOT) 34, Alanine Aminotransferase (ALT/SGPT) 38, Alkaline Phosphatase 51, Total Protein 5.2L, Albumin 3.3 ECG Impression ECG Initial ECG Rhythm: Normal Sinus Physical Exam Physical Exam Vital Signs Vital Signs - First Documented 04/02/23 04/02/23 18:45 20:15 Temp 36.4 Pulse 70 Resp 18 B/P (MAP) 165/68 (100) Pulse Ox 93 O2 Delivery Room Air Capillary Refill : Height, Weight, BMI Height: 5'4.00" Weight: 172lbs. 0.0oz. [id number]; 28.83 BMI Method:Stated General Appearance: No Apparent Distress, WD/WN, Chronically ill, Obese Eyes: Bilateral Eye Normal Inspection, Bilateral Eye PERRL HEENT: PERRL/EOMI, Normal ENT Inspection, Pharynx Normal Neck: Full Range of Motion, Normal Inspection, Non Tender, Supple, Carotid Bruit Respiratory: Chest Non Tender, Lungs Clear, Normal Breath Sounds, No Accessory Muscle Use, No Respiratory Distress Cardiovascular: Regular Rate, Rhythm, No Edema, No Gallop, No JVD, No Murmur, Normal Peripheral Pulses Gastrointestinal: Normal Bowel Sounds, No Organomegaly, No Pulsatile Mass, Non Tender, Soft Back: Normal Inspection, No CVA Tenderness, No Vertebral Tenderness Extremity: Normal Capillary Refill, Normal Inspection, Normal Range of Motion (Except left arm in sling), Non Tender, No Calf Tenderness, No Pedal Edema Neurologic/Psychiatric: Alert, Oriented x3, Normal 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 High-grade AV block, intermittent complete heart block Questionable transient episode of atrial fibrillation with bradycardia. Could be artifact Underwent leadless pacemaker placement with Dr Sam Device is in place, I will evaluate twelve-lead EKG History of hypertension, history of orthostatic hypotension, vasodepressor syncope. Currently blood pressure is stable. History of chest pain nonspecific etiology, seen in the emergency room on June 04, 2022. EKG showed left bundle branch block. Lexiscan stress test was done on July 10, 2022 with baseline left bundle branch block and frequent atrial premature contractions. She has small left ventricular size affecting the quality of the images, stress score is 6, there is questionable minimal ischemia of the inferior septum but no significant reversible ischemia noted, SDS is 2, ejection fraction 74% 2D echo was done in February 2021 showing normal LV size, EF 55 to 65%, PA pressure 30 mmHg History of syncope, treated as vasodepressor syncope, had a tilt table test in 2005. No further syncopal episodes reported. CT of the head without contrast done on February 19, 2021 showing no acute abnormality. Continue to monitor Left bundle branch block, the record from 2005 indicate the presence of left bundle branch block. Continue to monitor. 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 Asymptomatic continue to monitor, will plan to repeat echo after next f/u appt. Hyperlipidemia, intolerant to Lipitor secondary to myalgias. Maintained on Crestor, Lipid profile was done on September 20, 2021 showing total cholesterol 160, HDL 51, triglyceride 127, LDL 84. Continue to monitor Bilateral lower extremity pain and weakness, Patient has varicose vein and erythema and discomfort in her legs. I recommended trying compression socks. Venous Doppler study showed no evidence of DVT. Done in June 2022 Arterial segmental pressure was normal in September 2017. Hypothyroidism, followed and managed by primary care physician History of recent back surgery Moderate carotid stenosis on the left, mild on the right, ultrasound was done in June 2022. Continue to monitor Patient was seen and evaluated with Bridgette, I interviewed and examined the patient, discussed the management plan Made few modification using Italic font. In summary this is an 82-year-old lady who was transferred from [place] to [facility] for leadless pacemaker implantation. Had the procedure done Transferred back for acute rehab, having generalized weakness, has been compla ining of shoulder pain. No syncope or near syncopal episode, heart rate is better. BRIDGETTE COLON Apr 03, 2023 08:14 MARSHALL LARSEN MD Apr 03, 2023 14:57
--- NOTE | 2023-04-03 08:44 | Occupational Therapy Eval ---
OT Evaluation-General/PLF Medical Diagnosis Admission Date Apr 02, 2023 at 15:25 Medical Diagnosis: Complete Heart Block; S/P Pacemaker Placement Onset Date: Mar 27, 2023 Therapy Diagnosis Therapy Diagnosis: Decreased strength; Decreased functional mobility; Decreased endurance Height/Weight Height (Feet): 5 Height (Inches): 4.00 Weight (Pounds): 172 Weight (Ounces): 0.0 Precautions Precautions/Isolations: Fall Prevention, Standard Precautions Comments PPM precautions. Weight Bear Status Weight Bearing Restriction: Non Weight Bearing Location Restriction: L UE (sling) Referral Referral Reason: Activity Tolerance, Self Care, Evaluation/Treatment Medical History Pertinent Medical History: Arthritis, GERD, HTN, Hypothroidism, Neuropathy Current History About a week and half before DR rodriguez for Kidney infection, standing up form plug in electric cord to TV LOB and fell. ER visit following Dr rodriguez. Heart symptoms noted and admitted to ICU and then transferred to [place] for surgery and now returns to IRU. Cait reports no plan for shoulder surgery at his time, LUE in sling for comfort, abrupt ROM and prevent further injury. PPM precautions Reviewed History: Yes Social History Home: Single Level Current Living Status: Spouse Entry Into Home: Stairs With Railing Steps Into Home: 4 Pt lives in a single story home with her ; 4 steps to enter/exit with B HR; Walk-in shower, SC, no GB, and standard toilet ADL-Prior Level of Function SCALE: Activities may be completed with or without assistive devices. 8-Okqjpgapbi-ozvnlwy completes the activity by him/herself with no assistance from a helper. 5-Set-up or Clean-up Assistance-helper sets up or cleans up; patient completes activity. [place] assists only prior to or following the activity. 4-Supervision or Touching Assistance-helper provides verbal cues and/or touch ing/steadying and/or contact guard assistance as patient completes activity. Assistance may be provided throughout the activity or intermittently. 3-Partial/Moderate Assistance-helper does LESS THAN HALF the effort. [place] lifts, holds or supports trunk or limbs, but provides less than half the effort. 2-Substantial/Maximal Assistance-helper does MORE THAN HALF the effort. [place] lifts or holds trunk or limbs and provides more than half the effort. 3-Cpmqkkqcc-iznreq does ALL the effort. Patient does none of the effort to complete the activity. Or, the assistance of 2 or more helpers is required for the patient to complete the activity. If activity was not attempted, code reason: 7-Patient Refused. 9-Not Applicable-not attempted and the patient did not perform the activity before the current illness, exacerbation or injury. 10-Not Attempted due to Environmental Limitations-(lack of equipment, weather restraints, etc.). 88-Not Attempted due to Medical Conditions or Safety Concerns. ADL PLOF Comments PLOF did not use ADS for I/ADL or mobility Self Care: Independent Functional Cognition: Independent DME/Equipment: Bath Chair Drive Self: Yes OT Current Status Subjective Agreeable to OT, becomes tearful at process and wishes to go home as soon as able Mental Status/Objective Patient Orientation: Person, Place, Time, Situation Attachments: Other-See Comments (sling) Current Glasses/Contacts: Yes Hearing Aids: No Dentures/Partials: No Hand Dominance: Right Upper Extremity ROM LUE restricted ROM d/t PPM, No WB d/t Rotator Cuff injury, conservative treatment at this time Upper Extremity Coordination INTACT Upper Extremity Strength RUE WFL, VAMSHIE NT formally ADL-Treatment Eating (QC): 5 Oral Hygiene (QC): 5 Shower/Bathe Self (QC): 88 Upper Body Dressing (QC): 88 Lower Body Dressing (QC): 88 On/Off Footwear (QC): 88 Toileting Hygiene (QC): 88 Education OT Patient Education: Correct positioning, Home exercise program, Modified ADL techniques, Progress toward Goal/Update tx plan, Purpose of tx/functional activities, Safety issues, Transfer techniques, Use of adapted equipment Teaching Recipient: Patient Teaching Methods: Demonstration, Discussion Response to Teaching: Verbalize Understanding, Reinforcement Needed BIMS CAM BIMS Expression of Ideas and Wants: Without Difficulty Understanding Verbal Content: Understands Brief Interview/Mental Status: Yes IRF NAVID BIMS: IRF NAVID BIMS Response (Comments) Value Repitition of Three Words Three 3 Recalls Socks Yes, No Cue Required 2 Recalls Blue Yes, No Cue Required 2 Year Correct 3 Month Accurate Within 5 Days 2 Day Correct 1 Total 13 Patient Normally Able to Recal: Current Session, That he/she in a hsp Should Staff Asses. Mental St.: No CAM Mental Status Change/Baseline: 0 Inattention: 0 Disorganized thinkin Altered level of consciousness: 0 OT Short Term Goals Short Term Goals Time Frame: Apr 07, 2023 Eatin Oral hygiene: 6 OT Prison Goals Bed Spring Maker Goals Disorganized thinkin Oral Hygiene (QC): 6 Toileting Hygiene (QC): 6 Shower/Bathe Self (QC): 5 Upper Body Dressing (QC): 5 Lower Body Dressing (QC): 5 On/Off Footwear (QC): 5 1=Demonstrate adherence to instructed precautions during ADL tasks. 2=Patient will verbalize/demonstrate understanding of assistive devices/modific ations for ADL. 3=Patient will improve strength/tolerance for activity to enable patient to perform ADL's. OT Education/Plan Problem List/Assessment Assessment: Decreased Activ Tolerance, Decreased UE Strength, Impaired Funct Balance, Impaired I ADL's, Impaired Self-Care Skills, Restricted Funct UE ROM Discharge Recommendations Plan/Recommendations: Continue POC Treatment Plan/Plan of Care Treatment,Training & Education: Yes Patient would benefit from OT for education, treatment and training to promote independence in ADL's, mobility, safety and/or upper extremity function for ADL's. Plan of Care: ADL Retraining, Concurrent Therapy, Functional Mobility, Group Exercise/Act as Ind, UE Funct Exercise/Act Treatment Duration: Apr 11, 2023 Frequency: At least 5 of 7 days/Wk (IRF) Estimated Hrs Per Day: 1.5 hours per day Agreement: Yes Rehab Potential: Guarded Time Start Time: 08:30 Stop Time: 08:45 DATE: Apr 03, 2023 Total Time Billed (hr/min): 15 Billed Treatment Time EVM 15 min VANNA VALLADARES OT Apr 03, 2023 08:44
[2023-04-03 08:49] VITALS: BP 169/81
[2023-04-03] MEDS: ROSUVASTATIN 5 MG (CRESTOR) TABLET PO SCH (08:56)
[2023-04-03] MEDS ORDERED: FISH PO SCH (09:00)
[2023-04-03] MEDS ORDERED: LUT PO SCH (09:00)
[2023-04-03] MEDS ORDERED: PREVAGEN PO SCH (09:00)
[2023-04-03] MEDS ORDERED: DHA PO SCH (09:00)
[2023-04-03] MEDS ORDERED: UBIDECARENONE 50 MG PO SCH (09:00)
[2023-04-03] MEDS ORDERED: ZEA PO SCH (09:00)
[2023-04-03] MEDS ORDERED: [UNRECOGNIZED DRUG - OTHER] PO SCH (09:00)
[2023-04-03] MEDS ORDERED: EPA PO SCH (09:00)
[2023-04-03] MEDS ORDERED: MV MN PO SCH (09:00)
--- NOTE | 2023-04-03 10:29 | Physical Therapy Evaluation ---
PT Evaluation-General Medical Diagnosis Admission Date Apr 02, 2023 at 15:25 Medical Diagnosis: Complete Heart Block; S/P Pacemaker Placement Onset Date: Mar 27, 2023 Therapy Diagnosis Therapy Diagnosis: Decreased strength; Decreased functional mobility; Decreased endurance Height/Weight Height (Feet): 5 Height (Inches): 4.00 Weight (Pounds): 172 Weight (Ounces): 0.0 Precautions Precautions/Isolations: Fall Prevention, Standard Precautions PPM precautions Weight Bear Status Right Lower Extremity: Right Full Weight Bearing Left Lower Extremity: Left Full Weight Bearing NWB L UE with sling in place Referral Physician: Jian Reason for Referral: Evaluation/Treatment Medical History Pertinent Medical History: Arthritis, GERD, HTN, Hypothroidism, Neuropathy Additional Medical History HTN, GERD, Diverticulosis, C-Diff, Hypothyroidism, cataracts, skin cancer, neuropathy Current History Pt fell about a week in a half ago; Went to Dr patel on 03/27/23 and was admitted for UTI and was found to have a complete heart block;Transferred to [facility] for pacemaker placement on 04/01/23; Admitted to ARU on 04/02/23 Reviewed History: Yes Social History Home: Single Level Current Living Status: Significant Other Entry Into Home: Stairs With Railing PT Steps Into Home: 4 Pt lives in a single story home with her ; 4 steps to enter/exit with B HR; Walk-in shower, SC, no GB, and standard toilet Prior Prior Level of Function SCALE: Activities may be completed with or without assistive devices. 8-Isjcyoixvl-aydokwd completes the activity by him/herself with no assistance from a helper. 5-Set-up or Clean-up Assistance-helper sets up or cleans up; patient completes activity. [place] assists only prior to or following the activity. 4-Supervision or Touching Assistance-helper provides verbal cues and/or touching/steadying and/or contact guard assistance as patient completes activity. Assistance may be provided throughout the activity or intermittently. 3-Partial/Moderate Assistance-helper does LESS THAN HALF the effort. [place] lifts, holds or supports trunk or limbs, but provides less than half the effort. 2-Substantial/Maximal Assistance-helper does MORE THAN HALF the effort. [place] lifts or holds trunk or limbs and provides more than half the effort. 8-Iirooosqg-vmjzvc does ALL the effort. Patient does none of the effort to complete the activity. Or, the assistance of 2 or more helpers is required for the patient to complete the activity. If activity was not attempted, code reason: 7-Patient Refused. 9-Not Applicable-not attempted and the patient did not perform the activity before the current illness, exacerbation or injury. 10-Not Attempted due to Environmental Limitations-(lack of equipment, weather restraints, etc.). 88-Not Attempted due to Medical Conditions or Safety Concerns. Bed Mobility: 6 Transfers (B,C,W/C): 6 Gait: 6 Stairs: 6 Wheelchair Mobility: 9 Indoor Mobility (Ambulation): Independent Stairs: Independent Prior Devices Use: None At PLOF, pt reports being Ind with no AD and driving; Pt reports she has a cane at home PT Evaluation-Current Subjective Pt report she is tired and shaky this morning, but agreeable to PT. Pt denies pain Pain Numeric Pain Scale: 0-No Pain Location: No Pain Reported Section J - Health Conditions 1. Rarely or not at all 2. Occasionally 3. Frequently 4. Almost constantly 8. Unable to answer Pain Effect on Sleep: 1 Pain Interference with Therapy: 1 Pain Interference w/Day-to-Day: 1 Pt/Family Goals Safely return home with spouse Objective Patient Orientation: Person, Place, Time, Situation L UE sling ROM/Strength ROM Upper Extremities See OT eval ROM Lower Extremities WFL Strength Upper Extremities See OT eval Strength Lower Extremities B LE MMT = 4-/5 grossly Integumentary/Posture Integumentary See nurses note Bowel Incontinence: No Bladder Incontinence: No Sensory Vision: Functional Hearing: Functional Hand Dominance: Right Sensation Right Upper Extremit: Intact Sensation Left Upper Extremity: Intact Sensation Right Lower Extremit: Intact Sensation Left Lower Extremity: Intact Transfers Roll Left & Right (QC): 3 (Min A ) Sit to Lying (QC): 3 (Min A ) Lying to Sitting/Side of Bed(Q: 3 (Min A ) Sit to Stand (QC): 3 (Min A ) Chair/Lks-ve-Ytmuy Xfer(QC): 3 (Min A ) Toilet Transfer (QC): 3 (Min A ) Car Transfer (QC): 3 (Min A ) Gait Does the Patient Walk?: Yes Mode of Locomotion: Walk Anticipated Mode of Locomotion: Walk Walk 10 feet (QC): 3 (Min A ) Walk 50 ft with 2 Turns(QC): 88 Walk 150 ft (QC): 88 Walking 10ft/uneven surface-QC: 88 Gait Assistive Device: Walker Brian Wheelchair Training Does the Pt Use a Wheelchair?: No Wheel 50 ft with 2 turns (QC): 9 Wheel 150 ft (QC): 9 Type of Wheelchair: N/A Stairs 1 Step (curb) (QC): 88 4 Steps (QC): 88 12 Steps (QC): 88 Balance Sitting Static: Good Sitting Dynamic: Good Standing Static: Fair Standing Dynamic: Fair Picking up an Object (QC): 3 (Min A with hse advisor ) Special Test Comments KU standing balance test = 3/5 (goal = 4+/5) Treatment PT eval completed Assessment/Needs Pt tolerated PT well Rehab Potential: Good Post Rehab Potential-Barriers: Weakness/endurance Equipment Needs Brian-walker, QC? PT Residential Goals Residential Goals PT Residential Goals Time Frame: Apr 16, 2023 Roll Left to Right (QC): 6 (Pt will be Mod I with bed mobility and transfers. ) Sit to Lying (QC): 6 (Pt will be Mod I with bed mobility and transfers. ) Lying-Sitting on Side/Bed(QC): 6 (Pt will be Mod I with bed mobility and transfers. ) Sit to Stand (QC): 6 (Pt will be Mod I with bed mobility and transfers. ) Chair/Qyi-fu-Npmcd Xfer(QC): 6 (Pt will be Mod I with bed mobility and transfers. ) Toilet/Commode Transfer (QC): 6 (Pt will be Mod I with bed mobility and transfers. ) Car Transfer (QC): 6 (Pt will be Mod I with bed mobility and transfers. ) Does the Patient Walk: Yes Walk 10 feet (QC): 4 (Pt will be SBA for walking and stairs, in order to safely return home with spouse. ) Walk 10ft-Uneven Surface(QC): 4 (Pt will be SBA for walking and stairs, in order to safely return home with spouse. ) Walk 50ft with 2 Turns (QC): 4 (Pt will be SBA for walking and stairs, in order to safely return home with spouse. ) Walk 150 ft (QC): 4 (Pt will be SBA for walking and stairs, in order to safely return home with spouse. ) Does the Pt use WC or Scooter?: No Wheel 50 feet with 2 turns (QC: 9 Type: N/A Wheel 150 feet: 9 Type: N/A 1 Step (curb) (QC): 4 (Pt will be SBA for walking and stairs, in order to safely return home with spouse. ) 4 Steps (QC): 4 (Pt will be SBA for walking and stairs, in order to safely return home with spouse. ) 12 Steps (QC): 4 (Pt will be SBA for walking and stairs, in order to safely return home with spouse. ) Picking up an Object (QC): 6 (With hse advisor ) KU standing balance goal = 4+/5 PT Plan Problem List Problem List: Activity Tolerance, Functional Strength, Safety, Balance, Gait, Transfer, Bed Mobility Treatment/Plan Treatment Plan: Continue Plan of Care Treatment Plan: Bed Mobility, Concurrent Therapy, Education, Functional Activity Yoni, Functional Strength, Group Therapy, Gait, Safety, Therapeutic Exercise, Transfers Treatment Duration: Apr 16, 2023 Frequency: At least 5 of 7 days/Wk (IRF) Estimated Hrs Per Day: 1.5 hours per day Patient and/or Family Agrees t: Yes Safety Risks/Education Patient Education: Gait Training, Transfer Techniques, Reviewed Precautions, Correct Positioning, Safety Issues Teaching Recipient: Patient Teaching Methods: Demonstration, Discussion Response to Teaching: Verbalize Understanding, Return Demonstration, Reinforcement Needed Discharge Recommendations Plan Pt would benefit from skilled PT, in order to safely d/c home with spouse Therapy Discharge Recommendati: Home & Family Equpiment Recommendations-D/C: Other, Please Explain (Brian-walker/QC? ) Discharge Status/Home Program Cont per POC Barriers to Progress Weakness, Endurance Target Placement Home with spouse Time Time In: 800 Time Out: 830 DATE: Apr 03, 2023 Total Billed Treatment Time: 30 Total Billed Treatment 30 min KENRICK ZEE PT Apr 03, 2023 10:29
--- NOTE | 2023-04-03 10:30 | PM&R Progress Note ---
Subjective HPI/CC On Admission Date Seen by Provider: Apr 03, 2023 Time Seen by Provider: 10:30 Subjective/Events-last exam 04/03/2023: Much improved overall No pain Participation is good with therapy No falls Reviewed labs Review of Systems General: Fatigue, Malaise Neurological: Confusion Objective Exam Vital Signs Vital Signs Date Time Temp Pulse Resp B/P (MAP) Pulse Ox O2 Delivery O2 Flow Rate FiO2 04/03/23 20:15 36.4 66 20 156/72 (100) 97 Room Air Capillary Refill : General Appearance: No Apparent Distress, WD/WN, Chronically ill, Obese HEENT: PERRL/EOMI, Normal ENT Inspection, Pharynx Normal Neck: Full Range of Motion, Normal Inspection, Non Tender, Supple, Carotid Bruit Respiratory: Chest Non Tender, Lungs Clear, Normal Breath Sounds, No Accessory Muscle Use, No Respiratory Distress Cardiovascular: Regular Rate, Rhythm, No Edema, No Gallop, No JVD, No Murmur, N ormal Peripheral Pulses Gastrointestinal: Normal Bowel Sounds, No Organomegaly, No Pulsatile Mass, Non Tender, Soft Back: Normal Inspection, No CVA Tenderness, No Vertebral Tenderness Extremity: Normal Capillary Refill, Normal Inspection, Normal Range of Motion (Except left arm in sling), Non Tender, No Calf Tenderness, No Pedal Edema Neurologic/Psychiatric: Alert, Oriented x3, Normal Mood/Affect, corporate counselor II-XII Norm as Tested, Abnormal Gait, Depressed Affect, Motor Weakness ( generalized 4/5) Skin: Normal Color, Warm/Dry Lymphatic: No Adenopathy Results/Procedures Lab Laboratory Tests 04/03/23 05:50 Patient resulted labs reviewed. FIM Transfers Therapy Code Descriptions/Definitions Functional [place] Measure: 0=Not Assessed/NA 4=Minimal Assistance 1=Total Assistance 5=Supervision or Setup 2=Maximal Assistance 6=Modified [place] 3=Moderate Assistance 7=Complete IndependenceSCALE: Activities may be completed with or without assistive devices. 1-Sspeztbnqu-nsbsmvh completes the activity by him/herself with no assistance from a helper. 5-Set-up or Clean-up Assistance-helper sets up or cleans up; patient completes activity. [place] assists only prior to or following the activity. 4-Supervision or Touching Assistance-helper provides verbal cues and/or touching/steadying and/or contact guard assistance as patient completes activity. Assistance may be provided throughout the activity or intermittently. 3-Partial/Moderate Assistance-helper does LESS THAN HALF the effort. [place] lifts, holds or supports trunk or limbs, but provides less than half the effort. 2-Substantial/Maximal Assistance-helper does MORE THAN HALF the effort. [place] lifts or holds trunk or limbs and provides more than half the effort. 6-Awgicpujl-frdspz does ALL the effort. Patient does none of the effort to complete the activity. Or, the assistance of 2 or more helpers is required for t he patient to complete the activity. If activity was not attempted, code reason: 7-Patient Refused. 9-Not Applicable-not attempted and the patient did not perform the activity before the current illness, exacerbation or injury. 10-Not Attempted due to Environmental Limitations-(lack of equipment, weather restraints, etc.). 88-Not Attempted due to Medical Conditions or Safety Concerns. Assessment/Plan Assessment and Plan Assess & Plan/Chief Complaint 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 on 04/01/2023 Encephalopathy from UTI much improved Fall Left rotator cuff injury remains in sling Hypertension Plan: Aggressive PT and OT Ultimately return back home to spouse Decrease lactation consultant burden for daughter 04/03/2023: Inquire with ortho who consulted last admit before pacemaker on her weight bearing status (1) Myopathy (2) Complete heart block (3) Encephalopathy (4) S/P placement of leadless cardiac pacemaker (5) Injury of left rotator cuff JUSTIN KOWALSKI DO Apr 03, 2023 10:30
--- NOTE | 2023-04-03 10:30 | Individualized Plan of Care ---
Individualized Plan of Care Rehab Nursing IPOC Order Admission Date Apr 02, 2023 at 15:25 Current Orders Orders Admission Order(Inpt,Obs,Sdc) (04/02/23 13:42) Vital Signs: Per Unit Policy ( 08,16,00 (04/02/23 13:42) Reji Zaman 09,21 (04/02/23 13:42) Sequential Compression Device [id number] (04/02/23 13:42) Switchman-Inpt Rehab Con (04/02/23 13:42) Rehab Nursing Orders-Ipoc (04/02/23 13:42) Physical Therapy Rehab Orders (04/02/23 13:42) Occupational Therapy Rehab Ord (04/02/23 13:42) Speech Therapy Rehab Orders (04/02/23 13:42) Cbc With Automated Diff (04/03/23 06:00) Comprehensive Metabolic Panel (04/03/23 06:00) Precautions (Aru) (04/02/23 13:42) Weekly Weight WEEK (04/02/23 13:42) Rehab-Intensity Of Therapy (04/02/23 13:42) Initiate Admission Nursing Pro .admission (04/02/23 13:42) Alprazolam Tablet (Alprazolam Tablet) (04/02/23 13:45) Calcium Carbonate Chew Tablet (Antacid C (04/02/23 13:45) Diphenhydramine Tablet (Benadryl Tablet) (04/02/23 13:45) Docusate Sodium Capsule (Colace Capsule) (04/02/23 21:00) Docusate Sodium Capsule (Colace Capsule) (04/02/23 13:45) Bisacodyl Suppository (Dulcolax Supposit (04/02/23 13:45) Lactulose Oral Solution (Enulose Oral So (04/02/23 13:45) Na Phos/Na Biphos Enema (Fleet Enema Archie (04/02/23 13:45) Guaifenesin/Codeine Syrup (Robitussin Ac (04/02/23 13:45) Loperamide Tablet (Imodium Tablet) (04/02/23 13:45) Melatonin Tablet (Melatonin Tablet) (04/02/23 13:45) Polyethylene Glycol Powder Pkt (Miralax (04/02/23 21:00) Ondansetron Oral Dissolve Tab (Zofran (04/02/23 13:45) Senna S Tablet (Senokot S Tablet) (04/02/23 21:00) Acetaminophen Tablet (Acetaminophen Ta (04/02/23 13:45) Initiate Admission Nursing Pro .admission (04/02/23 13:42) Admission Arrival Bed Request (04/02/23 15:28) General/Regular (04/02/23 Dinner) Aspirin Enteric Coated Tablet (Ecotrin T (04/03/23 09:00) Duloxetine Capsule (Cymbalta Capsule) (04/03/23 09:00) Ezetimibe Tablet (Zetia Tablet) (04/03/23 09:00) Famotidine Tablet (Pepcid Tablet) (04/02/23 21:00) Gabapentin Capsule/Tablet (Neurontin Cap (04/03/23 09:00) Gabapentin Capsule/Tablet (Neurontin Cap (04/02/23 21:00) Hydrocodone/Apap 5/325 Tablet (Hydrocod (04/02/23 16:30) Levothyroxine Tablet (Synthroid Tablet) (04/03/23 06:30) Melatonin Tablet (Melatonin Tablet) (04/02/23 21:00) Metoprolol Succinate (Xl) Tab (Toprol Xl (04/03/23 09:00) Rosuvastatin Tablet (Crestor Tablet) (04/03/23 09:00) (Nf) Mv-Mn/Om3/Dha/Epa/Fish/Lut/Lonnie (Ocu (04/03/23 09:00) (Nf) Burna-3 Fatty Acids/Fish Oil (Fish (04/03/23 09:00) (Nf) Ubidecarenone (Co Q-10) (04/03/23 09:00) (Nf) [Prevagen] (04/03/23 09:00) Consult Cardiology (04/02/23 16:26) Burna 3 Capsule (Fish Oil Capsule) (04/03/23 09:00) Therapeutic Multivitamin Tab (Vitamins, (04/03/23 07:00) Ekg Tracing (04/03/23 08:35) Patient Visit (04/03/23 ) Functional Activities, Ea 15 (04/03/23 ) Gait Training, Ea 15 Min (04/03/23 ) Exercise Therap, Ea 15 Min (04/03/23 ) Patient Visit (04/03/23 ) Speech Sound Lang Comp (04/03/23 ) Patient Visit (04/03/23 ) Pt Eval Moderate Complexity (04/03/23 ) Patient Visit (04/03/23 ) Functional Activities, Ea 15 (04/03/23 ) Gait Training, Ea 15 Min (04/03/23 ) Pastoral Consult (04/03/23 13:57) Rehab Nursing Orders: Ongoing Assess. of Cognitive Status, Ongoing Assess. of Function Status, Bladder Management, Bladder Scan, Bladder Training, Bowel Management, Bowel Training, Disease Management & Educaiton, DVT Prophylaxis, Fall Prevention, Fluid/Electrolyte/Nutrition Mgmt, Infection Prevention, Medication Management & Education, Management of Risks & Complications, Management of Skin Intergrity, Nutrition Management, Pain Management, Patient/Family Support, Safety Management, Wound Management Intensity of Therapy to be met Patient to be seen: Min.3h per day/5 of 7d PT IPOC Problem List: Activity Tolerance, Functional Strength, Safety, Balance, Gait, Transfer Treatment Plan: Continue Plan of Care Functional Strength, Group Therapy, Safety, Therapeutic Exercise Treatment Duration: Apr 03, 2023 Frequency: Modified Program (IRF) Estimated Hrs Per Day: 2 hours per day OT IPOC Problems: Decreased Activ Tolerance, Decreased UE Strength, Dependent Transf ers, Impaired Cognition, Impaired Coordination, Impaired Funct Balance OT Treatment, Training and Edu: Yes Plan of Care: ADL Retraining, Concurrent Therapy, Functional Mobility Treatment Duration: Apr 03, 2023 Frequency: 5 times per week Estimated Hrs Per Day: [address] IPOC Speech Therapy Treatment Plan: Continue Plan of Care Treatment Duration: Apr 03, 2023 Frequency: Modified Program (IRF) Estimated Hrs Per Day: Other Switchman/Case Mgmt Switchman/Case Managemen: Discharge Planning Dietitian/Retail Supervisor Dietitian/Retail Supervisor to monitor nutritional status and make changes and/or recommendations as needed and work with speech pathology on dietary upgrades as the occur. Physician IPOC Medical Issues being managed closely and that require the 24 hour availability of a physician: Recent complete heart block requiring leadless pacemaker will require close monitoring of BP and syncope and will require Cardiology to monitor closely Medical Issues: Bowel/Bladder Function, DVT Prophylaxis, Falls Precautions, Fluid/Electrolyte/Nutrition Balance, Infection Protection, Pain Management, Wound Care Brief Synthesis of Preadmission Screen, Post-Admission Evaluation, and Therapy Evaluations: PT OT will require close monitoring for fall risk management along with increasing ambulation with use of AD in order to increase ADL's to return home Medical Prognosis: Good Anticipated Length of Stay: 7 days JUSTIN KOWALSKI DO Apr 03, 2023 10:30
--- NOTE | 2023-04-03 10:55 | Physical Therapy Daily Note ---
PT Daily Note-Current Subjective Pt sitting up in bed upon arrival. Pt advised would like to clean-up "even if it was a sponge bath because I haven't bathed in a week". Pt agrees to PT. Pain Location: Incisional Location Body Site: Chest Pain Description: Ache, Pressure Comment: Reported but not rated w/exertion, advised to take it easy Section J - Health Conditions 1. Rarely or not at all 2. Occasionally 3. Frequently 4. Almost constantly 8. Unable to answer Pain Effect on Sleep: 1 Pain Interference with Therapy: 1 Pain Interference w/Day-to-Day: 1 Mental Status Patient Orientation: Person, Place, Time, Situation Attachments: Other-See Comments (Sling for L UE) Transfers SCALE: Activities may be completed with or without assistive devices. 3-Frkzpnsoak-gpzrqet completes the activity by him/herself with no assistance from a helper. 5-Set-up or Clean-up Assistance-helper sets up or cleans up; patient completes activity. [place] assists only prior to or following the activity. 4-Supervision or Touching Assistance-helper provides verbal cues and/or touching/steadying and/or contact guard assistance as patient completes activity. Assistance may be provided throughout the activity or intermittently. 3-Partial/Moderate Assistance-helper does LESS THAN HALF the effort. [place] lifts, holds or supports trunk or limbs, but provides less than half the effort. 2-Substantial/Maximal Assistance-helper does MORE THAN HALF the effort. [place] lifts or holds trunk or limbs and provides more than half the effort. 2-Wrsrnhmpx-upgsfy does ALL the effort. Patient does none of the effort to complete the activity. Or, the assistance of 2 or more helpers is required for the patient to complete the activity. If activity was not attempted, code reason: 7-Patient Refused. 9-Not Applicable-not attempted and the patient did not perform the activity before the current illness, exacerbation or injury. 10-Not Attempted due to Environmental Limitations-(lack of equipment, weather restraints, etc.). 88-Not Attempted due to Medical Conditions or Safety Concerns. Sit to Stand (QC): 3 Toilet Transfer (QC): 3 Weight Bearing Full Weight Bearing Full Weight Bearing Gait Training Does the Patient Walk?: Yes Distance: 15' x2 Walk 10 feet (QC): 3 Gait Persons Needed: 1 Gait Assistive Device: Walker Brian Exercises Seated Therapy Exercises: Ankle pumps, Long arc quads, Hip flexion, Hip abd/add , Glut set Seated Reps: 15 Treatments Completes sponge bath at bedside then TF to standing to amb to BR. After completing pericare, takes short RB. Pt completes Seated EX. Pt resting at end of tx w/all needs met, call light in hand. Assessment Current Status: Fair Progress Pt fatigues easily and was reminded of need for using sling & Brian Walker while up walking. PT Assisted Goals Cad Cam Programmer Goals Roll Left & Right (QC): 6 Sit to Lying (QC): 6 Lying-Sitting on Side/Bed(QC): 6 Sit to Stand (QC): 6 Chair/Ovm-fz-Ataay Xfer(QC): 6 Toilet Transfer (QC): 6 Car Transfer (QC): 6 Does the Patient Walk: Yes Walk 10 feet (QC): 4 Walk 50ft with 2 Turns (QC): 4 Walk 150 ft (QC): 4 Walking 10ft on Uneven Surface: 4 1 Step (curb) (QC): 4 4 Steps (QC): 4 12 Steps (QC): 4 Picking up an Object (QC): 6 Does the Pt use WC or Scooter?: No Wheel 50 feet with 2 turns (QC: 9 Wheel 150 feet: 9 PT Plan Problem List Problem List: Activity Tolerance, Functional Strength, Balance, Gait, Transfer Treatment/Plan Treatment Plan: Continue Plan of Care Treatment Duration: Mar 16, 2023 Frequency: At least 5 of 7 days/Wk (IRF) Safety Risks/Education Patient Education: Gait Training, Transfer Techniques, Correct Positioning, Safety Issues Teaching Recipient: Patient Teaching Methods: Discussion Response to Teaching: Verbalize Understanding Time Time In: 900 Time Out: 1000 DATE: Apr 03, 2023 Total Billed Treatment Time: 60 Total Billed Treatment 1, FA x2 (25m), GT (15m) & EX (20m) [facility] MEDICAL AND HEALTH SERVICES MANAGER Apr 03, 2023 10:55
--- NOTE | 2023-04-03 12:53 | ST Cognitive Linguistic Eval ---
Speech Evaluation-General Medical Diagnosis Complete Heart Block; S/P Pacemaker Placement Onset Date: Mar 27, 2023 Therapy Diagnosis Therapy Diagnosis: MILD COGNITIVE DEFICIT Precautions Precautions/Isolations: Fall Prevention, Standard Precautions Referral Referring Physician: Dr. Villar Reason for Referral: Evaluation/Treatment Medical History Pertinent Medical History: Arthritis, GERD, HTN, Hypothroidism, Neuropathy Current History Pt fell about a week in a half ago; Went to Dr amanda on 03/27/23 and was admitted for UTI and was found to have a complete heart block;Transferred to [facility] for pacemaker placement on 04/01/23; Admitted to ARU on 04/02/23 Reviewed History: Yes Social History Current Living Status: Spouse Speech PLF-Current Status Prior Level of Function Pt reports she lives at home with her and her yorkie. Pt states one of her daughters manages her finances and her other daughter manages her medications. Subjective Pt sitting up in the recliner when INSPECTOR FILTER TIP enters the room. Pt is pleasant throug hout the evaluation. Pt becomes emotional when talking about her family and losing a daughter in the past year. Pt pleasant and cooperative throughout evaluation. Pain Location: No Pain Reported Language Eval: Auditory Comprehends Simple Yes/No Ques: Functional Follows 1-Step Commands: Functional Follows General Conversations: Functional Language Eval: Verbal Language Completes Spontaneous Greeting: Functional Word Finding: Mild Requests Basic Needs: Functional States Basic Personal Info: Functional Cognitive Patient Orientation Pt oriented to day, year, state, location, and reason why in hospital. Objective Cognitive Domain Attention: WNL Memory: Mild Problem Solving: Functional Executive Functions: Mild Visuospatial Skills: Mild Composite Severity Rating: Mild Clock Drawing Severity Rating: Mild Score: 21 Objective Formal/Standardized Tests SLUMS Results Oral Motor/Speech Production Appears WNL Impression Pt presents with MILD COGNITIVE DEFICITS characterized by difficulty with recall/memory, naming 7 animals in one minutes, difficulty with mental manipulation, and difficulty with placing hands on the clock to tell the correct time. Pt did demonstrate orientation. Given 5 words she was able to immediately recall 4 of the words and following a short delay was able to recall 2/5 words. Pt able to answer questions about a story with 100% accuracy. Pt follows basic 1 step directions. Pt with difficulty with mental manipulation of putting numbers in reverse order on 3 and 4 digit number sequences. On the clock drawing, pt's numbers are slightly off and come in away from the tolowa dee-ni'. When asked to set the time to 10 til 11, pt writes another "10" next to her "11" on the clock. Pt does not draw any hands. When asked about her performance, pt states she does feel like the cognitive tasks were harder for her. She states she is usually pretty quick with problem solving. Pt will benefit from skilled speech therapy services while on IRU. Speech Short Term Goals Short Term Goals Short Term Goals Pt will complete memory and mental manipulation tasks with 80% accuracy with min verbal cues. Speech Medical Secretary Goals Medical Secretary Goals Pt will complete language tasks with 80% accuracy with min verbal cues. Pt will complete executive function tasks with 80% accuracy with min verbal cues. Speech-Plan Patient/Family Goals Patient/Family Goals: Pt states her goal is to return home with her . Treatment Plan Speech Therapy Treatment Plan: Continue Plan of Care Frequency: 5 times per week Estimated Hrs Per Day: .5 hour per day Rehab Potential: Guarded Pt/Family Agrees to Plan: Yes Safety Risks/Education Teaching Recipient: Patient Teaching Methods: Discussion Response to Teaching: Verbalize Understanding Education Topics Provided: Pt educated on the role of the INSPECTOR FILTER TIP, purpose of evaluation, results, and recommendations. Pt receptive and verbalizes understanding. Discharge Recommendations Pending progress, pt may benefit from speech therapy services following d/c from IRU. Time Speech Therapy Time In: 10:10 Speech Therapy Time Out: 10:45 DATE: Apr 03, 2023 Total Billed Time: 35 Billed Treatment Time S/L Álvaro Holman Speech Therapy Apr 03, 2023 12:53
--- NOTE | 2023-04-03 13:13 | Physical Therapy Daily Note ---
PT Daily Note-Current Subjective Pt sitting in recliner upon arrival. Pt agrees to PT but wants to wean off wearing sling for L UE & using Brian Walker. Pain Location: No Pain Reported Section J - Health Conditions 1. Rarely or not at all 2. Occasionally 3. Frequently 4. Almost constantly 8. Unable to answer Pain Effect on Sleep: 1 Pain Interference with Therapy: 2 Pain Interference w/Day-to-Day: 2 Mental Status Patient Orientation: Person, Place, Time, Situation Attachments: Other-See Comments (Sling for L UE) Transfers SCALE: Activities may be completed with or without assistive devices. 6-Hffmrvxrve-nqtzmnn completes the activity by him/herself with no assistance from a helper. 5-Set-up or Clean-up Assistance-helper sets up or cleans up; patient completes activity. [place] assists only prior to or following the activity. 4-Supervision or Touching Assistance-helper provides verbal cues and/or to uching/steadying and/or contact guard assistance as patient completes activity. Assistance may be provided throughout the activity or intermittently. 3-Partial/Moderate Assistance-helper does LESS THAN HALF the effort. [place] lifts, holds or supports trunk or limbs, but provides less than half the effort. 2-Substantial/Maximal Assistance-helper does MORE THAN HALF the effort. [place] lifts or holds trunk or limbs and provides more than half the effort. 7-Suadcxerw-xlczmx does ALL the effort. Patient does none of the effort to complete the activity. Or, the assistance of 2 or more helpers is required for the patient to complete the activity. If activity was not attempted, code reason: 7-Patient Refused. 9-Not Applicable-not attempted and the patient did not perform the activity before the current illness, exacerbation or injury. 10-Not Attempted due to Environmental Limitations-(lack of equipment, weather restraints, etc.). 88-Not Attempted due to Medical Conditions or Safety Concerns. Sit to Stand (QC): 3 Toilet Transfer (QC): 3 Weight Bearing Right Lower Extremity: Right Full Weight Bearing Left Lower Extremity: Left Full Weight Bearing NWB L UE with sling in place Gait Training Does the Patient Walk?: Yes Distance: 130', 55' Walk 10 feet (QC): 3 Walk 50 ft with 2 Turns(QC): 3 Gait Persons Needed: 1 Gait Assistive Device: Walker Brian Wheelchair Training Does the Pt Use a Wheelchair?: No Treatments TF to standing from recliner and amb to BR. Pt completes pericare then amb in hallway. Pt takes short RB and returns to room to rest in recliner w/all needs met, call light in hand. Assessment Current Status: Good Progress Pt has a couple unsteady moments while walking although able to self correct. Pt fatigues easily as walking requires increased effort for body control due to weakness. PT Intermediate Goals Intermediate Goals PT Intermediate Goals Time Frame: Apr 16, 2023 Roll Left & Right (QC): 6 (Pt will be Mod I with bed mobility and transfers. ) Sit to Lying (QC): 6 (Pt will be Mod I with bed mobility and transfers. ) Lying-Sitting on Side/Bed(QC): 6 (Pt will be Mod I with bed mobility and transfers. ) Sit to Stand (QC): 6 (Pt will be Mod I with bed mobility and transfers. ) Chair/Nnn-ak-Mohsr Xfer(QC): 6 (Pt will be Mod I with bed mobility and transfers. ) Toilet Transfer (QC): 6 (Pt will be Mod I with bed mobility and transfers. ) Car Transfer (QC): 6 (Pt will be Mod I with bed mobility and transfers. ) Does the Patient Walk: Yes Walk 10 feet (QC): 4 (Pt will be SBA for walking and stairs, in order to safely return home with spouse. ) Walk 50ft with 2 Turns (QC): 4 (Pt will be SBA for walking and stairs, in order to safely return home with spouse. ) Walk 150 ft (QC): 4 (Pt will be SBA for walking and stairs, in order to safely return home with spouse. ) Walking 10ft on Uneven Surface: 4 (Pt will be SBA for walking and stairs, in order to safely return home with spouse. ) 1 Step (curb) (QC): 4 (Pt will be SBA for walking and stairs, in order to safely return home with spouse. ) 4 Steps (QC): 4 (Pt will be SBA for walking and stairs, in order to safely return home with spouse. ) 12 Steps (QC): 4 (Pt will be SBA for walking and stairs, in order to safely return home with spouse. ) Picking up an Object (QC): 6 (With associate drafter ) Does the Pt use WC or Scooter?: No Wheel 50 feet with 2 turns (QC: 9 Type: N/A Wheel 150 feet: 9 Type: N/A PT Plan Problem List Problem List: Activity Tolerance, Functional Strength, Balance, Gait, Transfer Treatment/Plan Treatment Plan: Continue Plan of Care Treatment Plan: Bed Mobility, Concurrent Therapy, Education, Functional Activity Yoni, Functional Strength, Group Therapy, Gait, Safety, Therapeutic Exercise, Transfers Treatment Duration: Apr 16, 2023 Frequency: At least 5 of 7 days/Wk (IRF) Estimated Hrs Per Day: 1.5 hours per day Patient and/or Family Agrees t: Yes Safety Risks/Education Patient Education: Gait Training, Transfer Techniques, Correct Positioning, Safety Issues Teaching Recipient: Patient Teaching Methods: Discussion Response to Teaching: Verbalize Understanding Time Time In: 1100 Time Out: 1145 DATE: Apr 03, 2023 Total Billed Treatment Time: 45 Total Billed Treatment 1, FA (15m) & GT x2 (30m) [facility] TILE POWER SHEAR OPERATOR Apr 03, 2023 13:13
[2023-04-03 13:50] VITALS: BP 143/82
[2023-04-03 20:15] VITALS: BP 156/72
[2023-04-03] MEDS: MELATONIN 3 MG TABLET PO SCH (20:49)
[2023-04-03] MEDS: FAMOTIDINE 20 MG TABLET PO SCH (20:49)
[2023-04-03] MEDS: HYDROcodone/ACETAMINOPHEN 5 MG/325 MG TABLET PO PRN (22:13)
--- NOTE | 2023-04-04 05:07 | PM&R Progress Note ---
Subjective HPI/CC On Admission Date Seen by Provider: Apr 04, 2023 Time Seen by Provider: 12:00 Subjective/Events-last exam 04/04/2023: No major issues No syncope today but had an episode late after noon yesterday Appears much improved Slow recovery 04/03/2023: Much improved overall No pain Participation is good with therapy No falls Reviewed labs Review of Systems General: Fatigue, Malaise Objective Exam Vital Signs Vital Signs Date Time Temp Pulse Resp B/P (MAP) Pulse Ox O2 Delivery O2 Flow Rate FiO2 04/04/23 13:00 67 04/04/23 09:00 96 Room Air 04/04/23 08:25 36.6 20 137/67 (90) Capillary Refill : General Appearance: No Apparent Distress, WD/WN, Chronically ill, Obese HEENT: PERRL/EOMI, Normal ENT Inspection, Pharynx Normal Neck: Full Range of Motion, Normal Inspection, Non Tender, Supple, Carotid Bruit Respiratory: Chest Non Tender, Lungs Clear, Normal Breath Sounds, No Accessory Muscle Use, No Respiratory Distress Cardiovascular: Regular Rate, Rhythm, No Edema, No Gallop, No JVD, No Murmur, Normal Peripheral Pulses Gastrointestinal: Normal Bowel Sounds, No Organomegaly, No Pulsatile Mass, Non Tender, Soft Back: Normal Inspection, No CVA Tenderness, No Vertebral Tenderness Extremity: Normal Capillary Refill, Normal Inspection, Normal Range of Motion (Except left arm in sling), Non Tender, No Calf Tenderness, No Pedal Edema Neurologic/Psychiatric: Alert, Oriented x3, Normal Mood/Affect, police officer crime prevention II-XII Norm as Tested, Abnormal Gait, Depressed Affect, Motor Weakness ( generalized 4/5) Skin: Normal Color, Warm/Dry Lymphatic: No Adenopathy Results/Procedures Lab Patient resulted labs reviewed. FIM Transfers Therapy Code Descriptions/Definitions Functional [place] Measure: 0=Not Assessed/NA 4=Minimal Assistance 1=Total Assistance 5=Supervision or Setup 2=Maximal Assistance 6=Modified [place] 3=Moderate Assistance 7=Complete IndependenceSCALE: Activities may be completed with or without assistive devices. 4-Okycjlcljj-imrrvgt completes the activity by him/herself with no assistance from a helper. 5-Set-up or Clean-up Assistance-helper sets up or cleans up; patient completes activity. [place] assists only prior to or following the activity. 4-Supervision or Touching Assistance-helper provides verbal cues and/or touching/steadying and/or contact guard assistance as patient completes activit y. Assistance may be provided throughout the activity or intermittently. 3-Partial/Moderate Assistance-helper does LESS THAN HALF the effort. [place] lifts, holds or supports trunk or limbs, but provides less than half the effort. 2-Substantial/Maximal Assistance-helper does MORE THAN HALF the effort. [place] lifts or holds trunk or limbs and provides more than half the effort. 9-Klkkvcmrs-faskmc does ALL the effort. Patient does none of the effort to complete the activity. Or, the assistance of 2 or more helpers is required for the patient to complete the activity. If activity was not attempted, code reason: 7-Patient Refused. 9-Not Applicable-not attempted and the patient did not perform the activity before the current illness, exacerbation or injury. 10-Not Attempted due to Environmental Limitations-(lack of equipment, weather restraints, etc.). 88-Not Attempted due to Medical Conditions or Safety Concerns. Roll Left to Right (QC): 3 (Min A ) Sit to Lying (QC): 3 (Min A ) Sit to Stand (QC): 3 Chair/Pri-ed-Nuzgr Xfer(QC): 3 (Min A ) Car Transfer (QC): 3 (Min A ) Gait Training Does the Patient Walk?: Yes Distance: 15' x2 Walk 10 feet (QC): 3 Walking 10ft/uneven surface-QC: 88 Gait Persons Needed: 1 Gait Assistive Device: Walker Brian Wheelchair Training Does the Pt Use a Wheelchair?: No Wheel 50 ft with 2 turns (QC): 9 Wheel 150 ft (QC): 9 Type of Wheelchair: N/A Stair Training 1 Step (curb) (QC): 88 4 Steps (QC): 88 12 Steps (QC): 88 Balance Picking up an Object (QC): 3 (Min A with produce specialist ) ADL-Treatment Eating (QC): 5 Oral Hygiene (QC): 5 Shower/Bathe Self (QC): 88 Upper Body Dressing (QC): 88 Lower Body Dressing (QC): 88 On/Off Footwear (QC): 88 Toileting Hygiene (QC): 88 Assessment/Plan Assessment and Plan Assess & Plan/Chief Complaint 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 on 04/01/2023 Encephalopathy from UTI much improved Fall Left rotator cuff injury remains in sling Hypertension Dementia Depression Plan: Aggressive PT and OT Ultimately return back home to spouse Decrease sterile preparation technician burden for daughter 04/03/2023: Inquire with ortho who consulted last admit before pacemaker on her weight bearing status 04/04/2023: Heating pad on right leg (1) Myopathy (2) Complete heart block (3) Encephalopathy (4) S/P placement of leadless cardiac pacemaker (5) Injury of left rotator cuff JUSTIN KOWALSKI DO Apr 04, 2023 05:06
[2023-04-04] MEDS: LEVOTHYROXINE 100 MCG (LEVOTHROID) TAB PO SCH (06:35)
[2023-04-04] MEDS: MULTIVIT W/MINERALS TAB (THERAGRAN M) PO SCH (06:35)
--- NOTE | 2023-04-04 07:52 | Occupational Ther Daily Note ---
OT Current Status-Daily Note Subjective Pt alert, sitting in recliner. Pt agrees to therapy. No c/o pain only fatigue after shower. Mental Status/Objective Patient Orientation: Person, Place, Time, Situation Attachments: Other-See Comments (pacemaker) ADL-Treatment Pt agrees to shower. CGA to ambulate to bathroom and transferred into shower. Sitting 90% of the time on shower bench, pt completes shower with SBA for safety using grabbars, hand held shower and verbal cues. Set up and verbal cues for energy conservation/safety while completing upper body dressing. Min A and verbal cues for energy conservation/safety for LBD. Set up for footwear, only wears slip on shoes. Independent for eating. CGA for toileting. After session, pt sitting in recliner with call light/phone in reach. All needs met in room. Therapy Code Descriptions/Definitions Functional [place] Measure: 0=Not Assessed/NA 4=Minimal Assistance 1=Total Assistance 5=Supervision or Setup 2=Maximal Assistance 6=Modified [place] 3=Moderate Assistance 7=Complete IndependenceSCALE: Activities may be completed with or without assistive devices. 8-Gpieoprlqe-vzfcwqz completes the activity by him/herself with no assistance from a helper. 5-Set-up or Clean-up Assistance-helper sets up or cleans up; patient completes activity. [place] assists only prior to or following the activity. 4-Supervision or Touching Assistance-helper provides verbal cues and/or joe peter/steadying and/or contact guard assistance as patient completes activity. Assistance may be provided throughout the activity or intermittently. 3-Partial/Moderate Assistance-helper does LESS THAN HALF the effort. [place] lifts, holds or supports trunk or limbs, but provides less than half the effort. 2-Substantial/Maximal Assistance-helper does MORE THAN HALF the effort. [place] lifts or holds trunk or limbs and provides more than half the effort. 2-Ijungssid-ibzvms does ALL the effort. Patient does none of the effort to complete the activity. Or, the assistance of 2 or more helpers is required for the patient to complete the activity. If activity was not attempted, code reason: 7-Patient Refused. 9-Not Applicable-not attempted and the patient did not perform the activity before the current illness, exacerbation or injury. 10-Not Attempted due to Environmental Limitations-(lack of equipment, weather restraints, etc.). 88-Not Attempted due to Medical Conditions or Safety Concerns. Eating (QC): 6 Shower/Bathe Self (QC): 4 Upper Body Dressing (QC): 5 Lower Body Dressing (QC): 3 On/Off Footwear: 5 Toileting Hygiene (QC): 4 Toilet Transfer (QC): 4 Other Treatment Pt given HEP wihtout resistance. Skills instruction for correct technique and modifications when needed. Pt will need continued instruction for B UE strengthening exercises. OT Short Term Goals Short Term Goals Time Frame: Apr 07, 2023 Eatin Oral hygiene: 6 OT Social Work Assistant Goals [facility] Goals Acute change in mental status: 0 Inattention: 0 Disorganized thinkin Altered level of consciousness: 0 Oral Hygiene (QC): 6 Toileting Hygiene (QC): 6 Shower/Bathe Self (QC): 5 Upper Body Dressing (QC): 5 Lower Body Dressing (QC): 5 On/Off Footwear (QC): 5 1=Demonstrate adherence to instructed precautions during ADL tasks. 2=Patient will verbalize/demonstrate understanding of assistive devices/modifications for ADL. 3=Patient will improve strength/tolerance for activity to enable patient to perform ADL's. OT Education/Plan Problem List/Assessment Assessment: Decreased Activ Tolerance, Decreased UE Strength, Impaired Cognition, Impaired Funct Balance, Impaired Self-Care Skills Discharge Recommendations Plan/Recommendations: Continue POC Treatment Plan/Plan of Care Patient would benefit from OT for education, treatment and training to promote independence in ADL's, mobility, safety and/or upper extremity function for ADL's. Plan of Care: ADL Retraining, Concurrent Therapy, Functional Mobility Treatment Duration: Apr 03, 2023 Frequency: 5 times per week Estimated Hrs Per Day: 1 hour per day Agreement: Yes Rehab Potential: Guarded Time Start Time: 07:00 Stop Time: 08:15 DATE: Apr 04, 2023 Total Time Billed (hr/min): 75 Billed Treatment Time 1 visit-ADL 5 (75 min) ZARIA COLLADO Apr 04, 2023 07:52
[2023-04-04 08:00] VITALS: BP_SYST 130; BP_SYST 137; BP_DIAS 61; BP_DIAS 67
[2023-04-04 08:25] VITALS: BP 137/67
[2023-04-04] MEDS: GABAPENTIN 300 MG (NEURONTIN) CAP PO SCH ×2 (08:31→21:26)
[2023-04-04] MEDS: SENNA W/DOCUSATE (SENOKOT S) TABLET PO SCH ×2 (08:32→21:26)
[2023-04-04] MEDS: ROSUVASTATIN 5 MG (CRESTOR) TABLET PO SCH (08:32)
[2023-04-04] MEDS: ASPIRIN enteric coated 81MG TABLET PO SCH (08:32)
[2023-04-04] MEDS: OMEGA 3 (FISH OIL) 1000 MG CAP PO SCH (08:32)
[2023-04-04] MEDS: DOCUSATE SODIUM 100 MG CAPSULE PO SCH ×2 (08:33→21:26)
[2023-04-04] MEDS: polyethylene glycoL POWDER 17 GM (MIRALAX) PACK PO SCH ×2 (08:37→21:31)
[2023-04-04] MEDS: DULoxetine 20 MG CAPSULE PO SCH (08:42)
--- NOTE | 2023-04-04 10:51 | Cardiology Progress Note ---
Subjective Date Seen by Provider: Apr 04, 2023 Time Seen by Provider: 10:50 Subjective/Events-last exam Patient was seen at bedside, sitting comfortably, had an episode of fatigue and loss of energy yesterday. Objective-Cardiology Exam Last Set of Vital Signs Vital Signs 04/04/23 08:25 Temp 36.6 Pulse 72 Resp 20 B/P (MAP) 137/67 (90) Pulse Ox 94 O2 Delivery Room Air I&O Intake and Output 04/04/23 00:00 Intake Total 1550 ml Balance 1550 ml Intake Oral 1550 ml # Voids 5 General: Alert, Oriented X3, Cooperative HEENT: Atraumatic, PERRLA Neck: Supple, No JVD, No Thyromegaly Lungs: Clear to Auscultation, Normal Air Movement Heart: Regular Rate, Normal S1, Normal S2, No Murmurs Abdomen: Normal Bowel Sounds, Soft, No Tenderness, No Hepatosplenomegaly, No Masses Extremities: No Clubbing, No Cyanosis, No Edema, Normal Pulses, No Tenderness/Swelling Skin: No Rashes, No Breakdown, No Significant Lesion Neuro: Normal Gait, Normal Speech, Strength at 5/5 X4 Ext, Normal Tone, Sen sation Intact Psych/Mental Status: Mental Status NL, Mood NL A/P-Cardiology Admission Diagnosis UTI High grade AV block, s/p leadless PPM HTN LBBB Assessment/Plan Generalized fatigue and weakness Status post complex UTI Currently admitted to acute rehab. High-grade AV block, intermittent complete heart block Questionable transient episode of atrial fibrillation with bradycardia. Could be artifact Underwent leadless pacemaker placement with Dr Sam Device is in place, Twelve-lead EKG done on April 03, 2023 showing sinus rhythm with ventricular paced rhythm. History of hypertension, history of orthostatic hypotension, vasodepressor syncope. Currently blood pressure is stable. History of chest pain nonspecific etiology, seen in the emergency room on June 04, 2022. EKG showed left bundle branch block. Lexiscan stress test was done on July 10, 2022 with baseline left bundle branch block and frequent atrial premature contractions. She has small left ventricular size affecting the quality of the images, stress score is 6, there is questionable minimal ischemia of the inferior septum but no significant reversible ischemia noted, SDS is 2, ejection fraction 74% 2D echo was done in February 2021 showing normal LV size, EF 55 to 65%, PA pressure 30 mmHg History of syncope, treated as vasodepressor syncope, had a tilt table test in 2005. No further syncopal episodes reported. CT of the head without contrast done on February 19, 2021 showing no acute abnormality. Continue to monitor Left bundle branch block, the record from 2005 indicate the presence of left bundle branch block. Continue to monitor. 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 Asymptomatic continue to monitor, will plan to repeat echo after next f/u appt. Hyperlipidemia, intolerant to Lipitor secondary to myalgias. Maintained on Crestor, Lipid profile was done on September 20, 2021 showing total cholesterol 160, HDL 51, triglyceride 127, LDL 84. Continue to monitor Bilateral lower extremity pain and weakness, Patient has varicose vein and erythema and discomfort in her legs. I recommended trying compression socks. Venous Doppler study showed no evidence of DVT. Done in June 2022 Arterial segmental pressure was normal in September 2017. Hypothyroidism, followed and managed by primary care physician History of recent back surgery Moderate carotid stenosis on the left, mild on the right, ultrasound was done in June 2022. Continue to monitor Patient was seen and evaluated with Bridgette, I interviewed and examined the jose bowman, discussed the management plan Made few modification using Italic font. In summary this is an 82-year-old lady who was transferred from [place] to [place] for leadless pacemaker implantation. Had the procedure done Transferred back for acute rehab, having generalized weakness, has been complaining of shoulder pain. No syncope or near syncopal episode, heart rate is better. MARSHALL LARSEN MD Apr 04, 2023 10:51
[2023-04-04] MEDS ORDERED: ENOXAPARIN 40 MG/0.4 ML SYRINGE SC SCH (11:00)
--- NOTE | 2023-04-04 11:27 | Speech Therapy Daily Note ---
Speech Daily Progress Note Subjective Date Seen by Provider: Apr 04, 2023 Time Seen by Provider: 09:30 Pt reports she thinks she is doing better this date. At the end of the session, pt asks speech therapist the purpose of the speech therapy tasks. Pt makes comments throughout session about how she didn't realize how much her cognitive functioning had declined. Pt pleasant and cooperative throughout session. Pain Numeric Pain Scale: 0-No Pain Objective Pt completes word deduction tasks with 50% accuracy independently and 90% accuracy with min verbal cues. Pt was given three words describing an item. Pt had to state what was being described. Pt would often state an object that only related to one of the items given. Pt completes an executive functioning task with 90% accuracy with mod to max verbal cues. Task require pt to manipulate words by following directions (ex: make the third and fifth letters "O's"). Pt was unable to do so without cuing. Pt had to be reminded frequently throughout task she was working off of the most recent word she wrote and not starting with very first word. Assessment Assessment Current Status: Fair Progress Treatment Plan Continue Plan of Care Speech Short Term Goals Short Term Goals Short Term Goals Pt will complete memory and mental manipulation tasks with 80% accuracy with min verbal cues. Speech Skilled Nursing Goals Pilot Plant Operator Helper Goals Pt will complete language tasks with 80% accuracy with min verbal cues. Pt will complete executive function tasks with 80% accuracy with min verbal cues. Speech-Plan Patient/Family Goals Patient/Family Goals: Pt's goal is to return home with her . Treatment Plan Speech Therapy Treatment Plan: Continue Plan of Care Treatment Duration: Apr 03, 2023 Frequency: Modified Program (IRF) Estimated Hrs Per Day: Other Rehab Potential: Guarded Pt/Family Agrees to Plan: Yes Safety Risks/Education Teaching Recipient: Patient Teaching Methods: Discussion Response to Teaching: Verbalize Understanding, Reinforcement Needed Education Topics Provided: Pt educated on purpose of speech therapy tasks and the SLUMS was reviewed again with the patient and the findings. CONTAINER MAKER and patient discuss potential reasons for a decline in her memory including hospitalization. Pt receptive and verbalized understanding, but will likely require reinforcement. Discharge Recommendations Post Acute ST Pt will likely benefit from continued speech therapy services following d/c from IRU. Time Speech Therapy Time In: 09:30 Speech Therapy Time Out: 10:15 DATE: Apr 04, 2023 Total Billed Time: 45 Billed Treatment Time S/L TX Álvaro Walter Speech Therapy Apr 04, 2023 11:27
[2023-04-04] MEDS ORDERED: PATIENT MAY USE OWN MED,SINGLE MED PO SCH ×2 (14:15)
--- NOTE | 2023-04-04 15:36 | Diagnostic Imaging Report ---
EXAMINATION: US Right Lower Extremity Venous Duplex. TECHNIQUE: Multiple real-time grayscale images were obtained over the right lower extremity in various projections. Additional spectral analysis and color Doppler duplex images were also obtained. HISTORY: Right leg pain. COMPARISON: 06/04/2022. FINDINGS: Nonocclusive thrombus is visualized within the right popliteal vein which demonstrates partial compressibility. The right common femoral vein, deep femoral vein, and superficial femoral vein are patent with normal palm scale and doppler appearance. There is normal respiratory variation and augmentation. The visualized calf vessels are patent. IMPRESSION: 1. Nonocclusive thrombus within the right popliteal vein. The remainder of the right lower extremity venous system is patent. Dictated by: Dictated on workstation # [id number]
[2023-04-04] MEDS: PREVAGEN PO SCH (16:43)
[2023-04-04] MEDS: COQ10 100 MG PO SCH (16:43)
[2023-04-04] MEDS ORDERED: RIVAROXABAN 20 MG TABLET (XARELTO) PO SCH (17:00)
[2023-04-04 20:20] VITALS: BP 157/69
[2023-04-04] MEDS: FAMOTIDINE 20 MG TABLET PO SCH (21:26)
[2023-04-04] MEDS: MELATONIN 3 MG TABLET PO SCH (21:26)
[2023-04-04] MEDS: HYDROcodone/ACETAMINOPHEN 5 MG/325 MG TABLET PO PRN (21:27)
[2023-04-05] MEDS: MULTIVIT W/MINERALS TAB (THERAGRAN M) PO SCH (06:30)
[2023-04-05] MEDS: RIVAROXABAN 15 MG TABLET (XARELTO) PO SCH ×2 (06:31→17:35)
[2023-04-05] MEDS: LEVOTHYROXINE 100 MCG (LEVOTHROID) TAB PO SCH (06:31)
--- NOTE | 2023-04-05 06:50 | PM&R Progress Note ---
Subjective HPI/CC On Admission Date Seen by Provider: Apr 05, 2023 Time Seen by Provider: 12:30 Subjective/Events-last exam 04/05/2023: No issues Spouse at bedside visiting Improved overall Dr Jin answered pacemaker questions DVT Right leg likely occurred during transition from [facility] when Lovenox had been held for pacemaker placement and OAC was in midst of restarting the day her right posterior knee pain occurred and USG ordered. Xarelto BID ordered for 3 weeks then once daily 04/04/2023: No major issues No syncope today but had an episode late after noon yesterday Appears much improved Slow recovery 04/03/2023: Much improved overall No pain Participation is good with therapy No falls Reviewed labs Review of Systems General: Fatigue, Malaise Objective Exam Vital Signs Vital Signs Date Time Temp Pulse Resp B/P (MAP) Pulse Ox O2 Delivery O2 Flow Rate FiO2 04/05/23 12:24 72 04/05/23 09:25 36.4 18 111/65 (80) 95 Room Air Capillary Refill : General Appearance: No Apparent Distress, WD/WN, Chronically ill, Obese HEENT: PERRL/EOMI, Normal ENT Inspection, Pharynx Normal Neck: Full Range of Motion, Normal Inspection, Non Tender, Supple, Carotid Bruit Respiratory: Chest Non Tender, Lungs Clear, Normal Breath Sounds, No Accessory Muscle Use, No Respiratory Distress Cardiovascular: Regular Rate, Rhythm, No Edema, No Gallop, No JVD, No Murmur, Normal Peripheral Pulses Gastrointestinal: Normal Bowel Sounds, No Organomegaly, No Pulsatile Mass, Non Tender, Soft Back: Normal Inspection, No CVA Tenderness, No Vertebral Tenderness Extremity: Normal Capillary Refill, Normal Inspection, Normal Range of Motion (Except left arm in sling), Non Tender, No Calf Tenderness, No Pedal Edema Neurologic/Psychiatric: Alert, Oriented x3, Normal Mood/Affect, broaching machine repairer II-XII Norm as Tested, Abnormal Gait, Depressed Affect, Motor Weakness ( generalized 4/5) Skin: Normal Color, Warm/Dry Lymphatic: No Adenopathy Results/Procedures Lab Patient resulted labs reviewed. FIM Transfers Therapy Code Descriptions/Definitions Functional [place] Measure: 0=Not Assessed/NA 4=Minimal Assistance 1=Total Assistance 5=Supervision or Setup 2=Maximal Assistance 6=Modified [place] 3=Moderate Assistance 7=Complete IndependenceSCALE: Activities may be completed with or without assistive devices. 9-Qtartzagfc-dqiphhs completes the activity by him/herself with no assistance from a helper. 5-Set-up or Clean-up Assistance-helper sets up or cleans up; patient completes activity. [place] assists only prior to or following the activity. 4-Supervision or Touching Assistance-helper provides verbal cues and/or touching/steadying and/or contact guard assistance as patient completes activity. Assistance may be provided throughout the activity or intermittently. 3-Partial/Moderate Assistance-helper does LESS THAN HALF the effort. [place] lifts, holds or supports trunk or limbs, but provides less than half the effort. 2-Substantial/Maximal Assistance-helper does MORE THAN HALF the effort. [place] lifts or holds trunk or limbs and provides more than half the effort. 9-Getybnizz-wgpxww does ALL the effort. Patient does none of the effort to complete the activity. Or, the assistance of 2 or more helpers is required for the patient to complete the activity. If activity was not attempted, code reason: 7-Patient Refused. 9-Not Applicable-not attempted and the patient did not perform the activity before the current illness, exacerbation or injury. 10-Not Attempted due to Environmental Limitations-(lack of equipment, weather restraints, etc.). 88-Not Attempted due to Medical Conditions or Safety Concerns. Roll Left to Right (QC): 3 (Min A ) Sit to Lying (QC): 3 (Min A ) Sit to Stand (QC): 3 Chair/Rhc-zp-Udzht Xfer(QC): 3 (Min A ) Car Transfer (QC): 3 (Min A ) Gait Training Does the Patient Walk?: Yes Distance: 15' x2 Walk 10 feet (QC): 3 Walking 10ft/uneven surface-QC: 88 Gait Persons Needed: 1 Gait Assistive Device: Walker Brian Wheelchair Training Does the Pt Use a Wheelchair?: No Wheel 50 ft with 2 turns (QC): 9 Wheel 150 ft (QC): 9 Type of Wheelchair: N/A Stair Training 1 Step (curb) (QC): 88 4 Steps (QC): 88 12 Steps (QC): 88 Balance Picking up an Object (QC): 3 (Min A with instrumentation engineer ) ADL-Treatment Eating (QC): 6 Oral Hygiene (QC): 5 Shower/Bathe Self (QC): 4 Upper Body Dressing (QC): 5 Lower Body Dressing (QC): 3 On/Off Footwear (QC): 5 Toileting Hygiene (QC): 4 Toilet Transfer (QC): 4 Assessment/Plan Assessment and Plan Assess & Plan/Chief Complaint 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 on 04/01/2023 Encephalopathy from UTI much improved Fall Left rotator cuff injury remains in sling Hypertension Dementia Depression Post op DVT right leg dx 04/05/23 likely occurred during OSH hospital course when OAC Eliquis was held during wait for pacemaker given USG performed after arrival to [facility]U Plan: Aggressive PT and OT Ultimately return back home to spouse 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
--- NOTE | 2023-04-05 08:52 | Cardiology Progress Note ---
Subjective Date Seen by Provider: Apr 05, 2023 Time Seen by Provider: 08:50 Subjective/Events-last exam Patient was seen at bedside during physical therapy session, doing better. No new complain Review of Systems General: No Chills, No Night Sweats; Fatigue, Malaise; No Appetite, No Other HEENT: No Head Aches, No Visual Changes, No Eye Pain, No Ear Pain, No Dysphasia, No Sinus Congestion, No Post Nasal Drip, No Sore Throat, No Other Pulmonary: No Dyspnea, No Cough, No Pleuritic Chest Pain, No Other Cardiovascular: No: Chest Pain, Palpitations, Orthopnea, Paroxysmal Noc. Dyspnea, Edema, Lt Headedness, Other Objective-Cardiology Exam Last Set of Vital Signs Vital Signs 04/04/23 04/04/23 04/05/23 20:20 20:40 07:00 Temp 36.4 Pulse 60 Resp 18 B/P (MAP) 157/69 (98) Pulse Ox 96 O2 Delivery Room Air I&O Intake and Output 04/05/23 00:00 Intake Total 2020 ml Balance 2020 ml Intake Oral 2020 ml # Voids 8 # Bowel Movements 1 General: Alert, Oriented X3, Cooperative HEENT: Atraumatic, PERRLA Neck: Supple, No JVD, No Thyromegaly Lungs: Clear to Auscultation, Normal Air Movement Heart: Regular Rate, Normal S1, Normal S2, No Murmurs Abdomen: Normal Bowel Sounds, Soft, No Tenderness, No Hepatosplenomegaly, No Masses Extremities: No Clubbing, No Cyanosis, No Edema, Normal Pulses, No Tenderness /Swelling Skin: No Rashes, No Breakdown, No Significant Lesion Neuro: Normal Gait, Normal Speech, Strength at 5/5 X4 Ext, Normal Tone, Sensation Intact Psych/Mental Status: Mental Status NL, Mood NL A/P-Cardiology Admission Diagnosis UTI High grade AV block, s/p leadless PPM HTN LBBB Assessment/Plan Generalized fatigue and weakness Status post complex UTI Currently admitted to acute rehab. High-grade AV block, intermittent complete heart block Questionable transient episode of atrial fibrillation with bradycardia. Could be artifact Underwent leadless pacemaker placement with Dr Sam Device is in place, Twelve-lead EKG done on April 03, 2023 showing sinus rhythm with ventricular paced rhythm. DVT noted in the right popliteal vein. Started on Xarelto 15 mg twice daily. History of hypertension, history of orthostatic hypotension, vasodepressor syncope. Currently blood pressure is stable. History of chest pain nonspecific etiology, seen in the emergency room on June 04, 2022. EKG showed left bundle branch block. Lexiscan stress test was done on July 10, 2022 with baseline left bundle branch block and frequent atrial premature contractions. She has small left ventricular size affecting the quality of the images, stress score is 6, there is questionable minimal ischemia of the inferior septum but no significant reversible ischemia noted, SDS is 2, ejection fraction 74% 2D echo was done in February 2021 showing normal LV size, EF 55 to 65%, PA pressure 30 mmHg History of syncope, treated as vasodepressor syncope, had a tilt table test in 2005. No further syncopal episodes reported. CT of the head without contrast done on February 19, 2021 showing no acute abnormality. Continue to monitor Left bundle branch block, the record from 2005 indicate the presence of left b undle branch block. Continue to monitor. Small patent miller ovale with [id number] shunt noted incidentally on echocardiogram on October 27, 2015. Asymptomatic continue to monitor, will plan to repeat echo after next f/u appt. Hyperlipidemia, intolerant to Lipitor secondary to myalgias. Maintained on Crestor, Lipid profile was done on September 20, 2021 showing total cholesterol 160, HDL 51, triglyceride 127, LDL 84. Continue to monitor Bilateral lower extremity pain and weakness, Patient has varicose vein and erythema and discomfort in her legs. I recommended trying compression socks. Venous Doppler study showed no evidence of DVT. Done in June 2022 Arterial segmental pressure was normal in September 2017. Hypothyroidism, followed and managed by primary care physician History of recent back surgery Moderate carotid stenosis on the left, mild on the right, ultrasound was done in June 2022. Continue to monitor MARSHALL LARSEN MD Apr 05, 2023 08:52
--- NOTE | 2023-04-05 09:19 | Occupational Ther Daily Note ---
OT Current Status-Daily Note Subjective Pt. reports pain behind her right knee, from reported blood clot. Pt. does not report pain level. lets pt. know that she is on a blood thinner. Nursing okay for therapy to proceed. Appearance Pt. up in chair. She is alert and agrees to treatment. Mental Status/Objective Patient Orientation: Person Pt. does ask at one point if she is in [place]. When oriented to [place], she states that she knows that and just can't "keep it straight" right now. ADL-Treatment Therapy Code Descriptions/Definitions Functional [place] Measure: 0=Not Assessed/NA 4=Minimal Assistance 1=Total Assistance 5=Supervision or Setup 2=Maximal Assistance 6=Modified [place] 3=Moderate Assistance 7=Complete IndependenceSCALE: Activities may be completed with or without assistive devices. 0-Exvrhatsll-vylxdtk completes the activity by him/herself with no assistance from a helper. 5-Set-up or Clean-up Assistance-helper sets up or cleans up; patient completes activity. [place] assists only prior to or following the activity. 4-Supervision or Touching Assistance-helper provides verbal cues and/or touching/steadying and/or contact guard assistance as patient completes activity. Assistance may be provided throughout the activity or intermittently. 3-Partial/Moderate Assistance-helper does LESS THAN HALF the effort. [place] lifts, holds or supports trunk or limbs, but provides less than half the effort. 2-Substantial/Maximal Assistance-helper does MORE THAN HALF the effort. [place] lifts or holds trunk or limbs and provides more than half the effort. 5-Ehusfoiwk-ohyilw does ALL the effort. Patient does none of the effort to complete the activity. Or, the assistance of 2 or more helpers is required for the patient to complete the activity. If activity was not attempted, code reason: 7-Patient Refused. 9-Not Applicable-not attempted and the patient did not perform the activity before the current illness, exacerbation or injury. 10-Not Attempted due to Environmental Limitations-(lack of equipment, weather restraints, etc.). 88-Not Attempted due to Medical Conditions or Safety Concerns. Eating (QC): 6 Oral Hygiene (QC): 5 (Set up at sink.) Shower/Bathe Self (QC): 4 (SBA for safety.) Upper Body Dressing (QC): 5 Lower Body Dressing (QC): 3 (Min assist to thread underwear over right foot. She is able to thread pants and is able to don both underwear and pants over hips.) On/Off Footwear: 4 (SBA while bending over and cues to make sure slip on shoes are fully over back foot.) Toileting Hygiene (QC): 4 (CGA while standing to cleanse zita area and pull up pants.) Toilet Transfer (QC): 4 (CGA) Other Treatment Pt. is seen for partial co-treatment with PT due to report of fatigue and dizzy spells with movement. Therapy monitored blood pressure while sitting, in stance, after ambulation, and during other times. Pt's right knee at times will "give" due to reported pain in back of knee. She requires CGA with walker during ambulation, and multiple rest breaks. Blood pressure good throughout treatment, as 135/65, 121/61, 112/64. PT focused on ambulation, transfers, endurance training, and gait safety with walker. OT focused on endurance training, ADL skills training, and education for UE. Dr. Jin in gym and confirms pt. does not have UE precautions and can lift UE. Per chart pt. does have rotator cuff injury, but is able to actively move shoulder. PT/OT encouraged pt. to range shoulder for improved healing and to decrease chance of stiffness. After ADLs in room, pt. agrees to ambulate into nunez. Pt. uses walker with CGA and requires multiple rest breaks. OT follows with BP machine to make sure BP is okay. Please see PT note for distance ambulated. Went into therapy gym and completed gentle active shoulder movements after it was confirmed that she could. Alternated with LE exercises with PT education. Pt. verbalizes that she is concerned about her , as she takes care of him at home. He currently requires assistance for ADLs and some mobility. OT assured her that this would be passed on. All needs met with PT in gym. Education OT Patient Education: Correct positioning, Exercise program, Modified ADL techniques, Progress toward Goal/Update tx plan, Purpose of tx/functional activi ties, Reviewed precautions, Rehab process, Transfer techniques Teaching Recipient: Patient Teaching Methods: Demonstration, Discussion Response to Teaching: Verbalize Understanding, Return Demonstration, Reinforcement Needed OT Short Term Goals Short Term Goals Time Frame: Apr 07, 2023 Eatin Oral hygiene: 6 OT Stick Welder Goals Stick Welder Goals Acute change in mental status: 0 Inattention: 0 Disorganized thinkin Altered level of consciousness: 0 Oral Hygiene (QC): 6 Toileting Hygiene (QC): 6 Shower/Bathe Self (QC): 5 Upper Body Dressing (QC): 5 Lower Body Dressing (QC): 5 On/Off Footwear (QC): 5 1=Demonstrate adherence to instructed precautions during ADL tasks. 2=Patient will verbalize/demonstrate understanding of assistive devices/sabas fications for ADL. 3=Patient will improve strength/tolerance for activity to enable patient to perform ADL's. OT Education/Plan Problem List/Assessment Assessment: Decreased Activ Tolerance, Decreased UE Strength, Impaired Funct Balance, Impaired I ADL's, Impaired Self-Care Skills, Restricted Funct UE ROM Discharge Recommendations Plan/Recommendations: Continue POC Therapy Discharge Recommendati: Post Acute OT Treatment Plan/Plan of Care Treatment,Training & Education: Yes Patient would benefit from OT for education, treatment and training to promote independence in ADL's, mobility, safety and/or upper extremity function for ADL's. Plan of Care: ADL Retraining, Concurrent Therapy, Functional Mobility, UE Funct Exercise/Act Treatment Duration: Apr 03, 2023 Frequency: At least 5 of 7 days/Wk (IRF) Estimated Hrs Per Day: 1.5 hours per day Agreement: Yes Rehab Potential: Good Time Start Time: 07:30 Stop Time: 09:00 DATE: Apr 05, 2023 Total Time Billed (hr/min): 90 Billed Treatment Time 8606-5350 1, ADL x 10minutes [id number] ADL x 50minutes, FA x [id number] with PT. Please see above note for designated roles. SLIME WORRELL OT Apr 05, 2023 09:19
[2023-04-05 09:25] VITALS: BP 111/65
[2023-04-05] MEDS: ASPIRIN enteric coated 81MG TABLET PO SCH (09:31)
[2023-04-05] MEDS: OMEGA 3 (FISH OIL) 1000 MG CAP PO SCH (09:31)
[2023-04-05] MEDS: DOCUSATE SODIUM 100 MG CAPSULE PO SCH ×2 (09:31→21:44)
[2023-04-05] MEDS: GABAPENTIN 300 MG (NEURONTIN) CAP PO SCH ×2 (09:31→20:23)
[2023-04-05] MEDS: ROSUVASTATIN 5 MG (CRESTOR) TABLET PO SCH (09:31)
[2023-04-05] MEDS: SENNA W/DOCUSATE (SENOKOT S) TABLET PO SCH ×2 (09:31→21:45)
[2023-04-05] MEDS: COQ10 100 MG PO SCH (09:34)
[2023-04-05] MEDS: PREVAGEN PO SCH (09:35)
--- NOTE | 2023-04-05 10:09 | Physical Therapy Daily Note ---
PT Daily Note-Current Subjective Pt. in bedside chair finishing breakfast upon arrival, OT also present. Pt. agrees to PT. States she can't believe how weak she is and reports they found a blood clot behind her R knee and it has been painful. No objective pain rating given. Pain Section J - Health Conditions 1. Rarely or not at all 2. Occasionally 3. Frequently 4. Almost constantly 8. Unable to answer Pain Effect on Sleep: 1 Pain Interference with Therapy: 1 Pain Interference w/Day-to-Day: 1 Mental Status Patient Orientation: Person, Place, Time, Situation Transfers SCALE: Activities may be completed with or without assistive devices. 4-Jmqemswlye-igmupmp completes the activity by him/herself with no assistance from a helper. 5-Set-up or Clean-up Assistance-helper sets up or cleans up; patient completes activity. [place] assists only prior to or following the activity. 4-Supervision or Touching Assistance-helper provides verbal cues and/or t ouching/steadying and/or contact guard assistance as patient completes activity. Assistance may be provided throughout the activity or intermittently. 3-Partial/Moderate Assistance-helper does LESS THAN HALF the effort. [place] lifts, holds or supports trunk or limbs, but provides less than half the effort. 2-Substantial/Maximal Assistance-helper does MORE THAN HALF the effort. [place] lifts or holds trunk or limbs and provides more than half the effort. 6-Ykfcxdbcg-yjeeum does ALL the effort. Patient does none of the effort to complete the activity. Or, the assistance of 2 or more helpers is required for the patient to complete the activity. If activity was not attempted, code reason: 7-Patient Refused. 9-Not Applicable-not attempted and the patient did not perform the activity before the current illness, exacerbation or injury. 10-Not Attempted due to Environmental Limitations-(lack of equipment, weather restraints, etc.). 88-Not Attempted due to Medical Conditions or Safety Concerns. Sit to Stand (QC): 4 Weight Bearing Right Lower Extremity: Right Full Weight Bearing Left Lower Extremity: Left Full Weight Bearing NWB L UE with sling in place Gait Training Does the Patient Walk?: Yes Distance: 75 ft, 50 ft, 200 ft Walk 10 feet (QC): 4 Walk 50 ft with 2 Turns(QC): 4 Walk 150 ft (QC): 4 Gait Persons Needed: 1 Gait Assistive Device: FWW steady gait but on 2 occasions had the R leg briefly buckle due to pain behind the knee. Pt. needed cues to stay close to walker. Stair Training Stair Training: Handrails/: 2 handrails #of Steps: 4 4 Steps (QC): 4 Stairs: Pattern: Step to Exercises Seated Therapy Exercises: Ankle pumps, Sit to stand (5 reps), Long arc quads Seated Reps: 15 NuStep Minutes: 10 NuStep Workload: 3 Treatments Co-tx with OT x 80 minutes of treatment due to patient fatiguing quickly with activity. Pt.'s blood pressure monitored during treatment: 135/65 mmHg (sitting), 121/61 mmHg (initial standing), 112/64 (during activities in gym). Pt. frequently c/o R posterior knee pain and it did limit gait distance, in addition to patient fatigue with ambulation. Pt. was (I) with sitting balance for ADLs but did require CGA with sit to stand and standing balance for ADL activities at the sink. Pt. needed periodic seated rest breaks during session due to fatigue. Pt. returned to bedside chair post session with call light and all needs met. Assessment Current Status: Good Progress Pt. able to increase activity level and gait distance this date but continues to fatigue quickly and was limited by c/o R posterior knee pain. 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 PT Intermediate Goals Time Frame: Apr 16, 2023 Roll Left & Right (QC): 6 Sit to Lying (QC): 6 Lying-Sitting on Side/Bed(QC): 6 Sit to Stand (QC): 6 Chair/Arg-dh-Bnyzf Xfer(QC): 6 Toilet Transfer (QC): 6 Car Transfer (QC): 6 Does the Patient Walk: Yes Walk 10 feet (QC): 4 Walk 50ft with 2 Turns (QC): 4 Walk 150 ft (QC): 4 Walking 10ft on Uneven Surface: 4 1 Step (curb) (QC): 4 4 Steps (QC): 4 12 Steps (QC): 4 Picking up an Object (QC): 6 Does the Pt use WC or Scooter?: No Wheel 50 feet with 2 turns (QC: 9 Type: N/A Wheel 150 feet: 9 Type: N/A PT Plan Treatment/Plan Treatment Plan: Continue Plan of Care Treatment Plan: Functional Strength, Group Therapy, Safety, Therapeutic Exercise Treatment Duration: Apr 03, 2023 Frequency: Modified Program (IRF) Estimated Hrs Per Day: 2 hours per day Patient and/or Family Agrees t: Yes Time Time In: 739 Time Out: 909 DATE: Apr 05, 2023 Total Billed Treatment Time: 90 Total Billed Treatment 1, FA x 4, GT, Ex REY JEFFERY PT Apr 05, 2023 10:09
[2023-04-05] MEDS: DULoxetine 20 MG CAPSULE PO SCH (10:26)
[2023-04-05] MEDS: polyethylene glycoL POWDER 17 GM (MIRALAX) PACK PO SCH ×2 (10:59→21:44)
[2023-04-05] MEDS: ACETAMINOPHEN 325 MG TABLET PO PRN (17:35)
[2023-04-05 20:00] VITALS: BP 146/74
[2023-04-05] MEDS: HYDROcodone/ACETAMINOPHEN 5 MG/325 MG TABLET PO PRN (20:24)
[2023-04-05] MEDS: MELATONIN 3 MG TABLET PO SCH (20:24)
[2023-04-05] MEDS: FAMOTIDINE 20 MG TABLET PO SCH (20:24)
[2023-04-06] MEDS: MULTIVIT W/MINERALS TAB (THERAGRAN M) PO SCH (06:37)
[2023-04-06] MEDS: LEVOTHYROXINE 100 MCG (LEVOTHROID) TAB PO SCH (06:37)
[2023-04-06] MEDS: RIVAROXABAN 15 MG TABLET (XARELTO) PO SCH ×2 (06:38→19:00)
--- NOTE | 2023-04-06 06:54 | PM&R Progress Note ---
Subjective HPI/CC On Admission Date Seen by Provider: Apr 06, 2023 Time Seen by Provider: 12:00 Subjective/Events-last exam 04/06/2023: Patient doing really well No new issues Drinking and eating well Ambulating well 04/05/2023: No issues Spouse at bedside visiting Improved overall Dr Jin answered pacemaker questions DVT Right leg likely occurred during transition from [place] when Lovenox had been held for pacemaker placement and OAC was in midst of restarting the day her right posterior knee pain occurred and USG ordered. Xarelto BID ordered for 3 weeks then once daily 04/04/2023: No major issues No syncope today but had an episode late after noon yesterday Appears much improved Slow recovery 04/03/2023: Much improved overall No pain Participation is good with therapy No falls Reviewed labs Review of Systems General: Fatigue, Malaise Objective Exam Vital Signs Vital Signs Date Time Temp Pulse Resp B/P (MAP) Pulse Ox O2 Delivery O2 Flow Rate FiO2 04/06/23 12:18 69 04/05/23 20:20 Room Air 04/05/23 20:00 36.0 16 146/74 (98) 96 Capillary Refill : General Appearance: No Apparent Distress, WD/WN, Chronically ill, Obese HEENT: PERRL/EOMI, Normal ENT Inspection, Pharynx Normal Neck: Full Range of Motion, Normal Inspection, Non Tender, Supple, Carotid Bruit Respiratory: Chest Non Tender, Lungs Clear, Normal Breath Sounds, No Accessory Muscle Use, No Respiratory Distress Cardiovascular: Regular Rate, Rhythm, No Edema, No Gallop, No JVD, No Murmur, Normal Peripheral Pulses Gastrointestinal: Normal Bowel Sounds, No Organomegaly, No Pulsatile Mass, Non Tender, Soft Back: Normal Inspection, No CVA Tenderness, No Vertebral Tenderness Extremity: Normal Capillary Refill, Normal Inspection, Normal Range of Motion (Except left arm in sling), Non Tender, No Calf Tenderness, No Pedal Edema Neurologic/Psychiatric: Alert, Oriented x3, Normal 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 FIM Transfers Therapy Code Descriptions/Definitions Functional [place] Measure: 0=Not Assessed/NA 4=Minimal Assistance 1=Total Assistance 5=Supervision or Setup 2=Maximal Assistance 6=Modified [place] 3=Moderate Assistance 7=Complete IndependenceSCALE: Activities may be completed with or without assistive devices. 5-Zwndzxbznp-jjhyrrg completes the activity by him/herself with no assistance from a helper. 5-Set-up or Clean-up Assistance-helper sets up or cleans up; patient completes activity. [place] assists only prior to or following the activity. 4-Supervision or Touching Assistance-helper provides verbal cues and/or touch ing/steadying and/or contact guard assistance as patient completes activity. Assistance may be provided throughout the activity or intermittently. 3-Partial/Moderate Assistance-helper does LESS THAN HALF the effort. [place] lifts, holds or supports trunk or limbs, but provides less than half the effort. 2-Substantial/Maximal Assistance-helper does MORE THAN HALF the effort. [place] lifts or holds trunk or limbs and provides more than half the effort. 0-Jxyqmcrnq-brmwfx does ALL the effort. Patient does none of the effort to complete the activity. Or, the assistance of 2 or more helpers is required for the patient to complete the activity. If activity was not attempted, code reason: 7-Patient Refused. 9-Not Applicable-not attempted and the patient did not perform the activity before the current illness, exacerbation or injury. 10-Not Attempted due to Environmental Limitations-(lack of equipment, weather restraints, etc.). 88-Not Attempted due to Medical Conditions or Safety Concerns. Roll Left to Right (QC): 3 (Min A ) Sit to Lying (QC): 3 (Min A ) Sit to Stand (QC): 4 Chair/Jlc-or-Eigap Xfer(QC): 3 (Min A ) Car Transfer (QC): 3 (Min A ) Gait Training Does the Patient Walk?: Yes Distance: 75 ft, 50 ft, 200 ft Walk 10 feet (QC): 4 Walk 50 ft with 2 Turns(QC): 4 Walk 150 ft (QC): 4 Walking 10ft/uneven surface-QC: 88 Gait Persons Needed: 1 Gait Assistive Device: FWW Wheelchair Training Does the Pt Use a Wheelchair?: No Wheel 50 ft with 2 turns (QC): 9 Wheel 150 ft (QC): 9 Type of Wheelchair: N/A Stair Training Stair Training: Handrails/: 2 handrails #of Steps: 4 1 Step (curb) (QC): 88 4 Steps (QC): 4 12 Steps (QC): 88 Stairs: Pattern: Step to Balance Picking up an Object (QC): 3 (Min A with install technician ) ADL-Treatment Eating (QC): 6 Oral Hygiene (QC): 5 (Set up at sink.) Shower/Bathe Self (QC): 4 (SBA for safety.) Upper Body Dressing (QC): 5 Lower Body Dressing (QC): 3 (Min assist to thread underwear over right foot. 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 on 04/01/2023 Encephalopathy from UTI much improved Fall Left rotator cuff injury remains in sling Hypertension Dementia Depression Post op DVT right leg dx 04/05/23 likely occurred during OSH hospital course when OAC Eliquis was held during wait for pacemaker given USG performed after arrival to ARU Plan: Aggressive PT and OT Ultimately return back home to spouse 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
[2023-04-06 09:49] VITALS: BP 128/68
[2023-04-06] MEDS: ASPIRIN enteric coated 81MG TABLET PO SCH (09:56)
[2023-04-06] MEDS: SENNA W/DOCUSATE (SENOKOT S) TABLET PO SCH ×2 (09:56→21:00)
[2023-04-06] MEDS: GABAPENTIN 300 MG (NEURONTIN) CAP PO SCH ×2 (09:56→20:28)
[2023-04-06] MEDS: DULoxetine 20 MG CAPSULE PO SCH (09:56)
[2023-04-06] MEDS: ROSUVASTATIN 5 MG (CRESTOR) TABLET PO SCH (09:56)
[2023-04-06] MEDS: OMEGA 3 (FISH OIL) 1000 MG CAP PO SCH (09:56)
[2023-04-06] MEDS: PREVAGEN PO SCH (09:58)
[2023-04-06] MEDS: COQ10 100 MG PO SCH (09:58)
--- NOTE | 2023-04-06 10:27 | Cardiology Progress Note ---
Subjective Date Seen by Provider: Apr 06, 2023 Time Seen by Provider: 10:26 Subjective/Events-last exam Patient was seen at bedside laying down comfortably, feeling better. Review of Systems General: No Chills, No Night Sweats, No Fatigue, No Malaise, No Appetite, No Other HEENT: No Head Aches, No Visual Changes, No Eye Pain, No Ear Pain, No Dysphasia, No Sinus Congestion, No Post Nasal Drip, No Sore Throat, No Other Pulmonary: No Dyspnea, No Cough, No Pleuritic Chest Pain, No Other Cardiovascular: No: Chest Pain, Palpitations, Orthopnea, Paroxysmal Noc. Dyspnea, Edema, Lt Headedness, Other Objective-Cardiology Exam Last Set of Vital Signs Vital Signs 04/05/23 04/05/23 04/06/23 20:00 20:20 07:00 Temp 36.0 Pulse 66 Resp 16 B/P (MAP) 146/74 (98) Pulse Ox 96 O2 Delivery Room Air I&O Intake and Output 04/06/23 00:00 Intake Total 2080 ml Balance 2080 ml Intake Oral 2080 ml # Voids 9 # Bowel Movements 1 General: Alert, Oriented X3, Cooperative HEENT: Atraumatic, PERRLA Neck: Supple, No JVD, No Thyromegaly Lungs: Clear to Auscultation, Normal Air Movement Heart: Regular Rate, Normal S1, Normal S2, No Murmurs Abdomen: Normal Bowel Sounds, Soft, No Tenderness, No Hepatosplenomegaly, No Masses Extremities: No Clubbing, No Cyanosis, No Edema, Normal Pulses, No Tenderness/Swelling Skin: No Rashes, No Breakdown, No Significant Lesion Neuro: Normal Gait, Normal Speech, Strength at 5/5 X4 Ext, Normal Tone, Sensation Intact Psych/Mental Status: Mental Status NL, Mood NL A/P-Cardiology Admission Diagnosis UTI High grade AV block, s/p leadless PPM HTN LBBB Assessment/Plan Generalized fatigue and weakness Status post complex UTI Currently admitted to acute rehab. High-grade AV block, intermittent complete heart block Questionable transient episode of atrial fibrillation with bradycardia. Could be artifact Underwent leadless pacemaker placement with Dr Sam Device is in place, Twelve-lead EKG done on April 03, 2023 showing sinus rhythm with ventricular paced rhythm. DVT noted in the right popliteal vein. Started on Xarelto 15 mg twice daily. History of hypertension, history of orthostatic hypotension, vasodepressor syncope. Currently blood pressure is stable. History of chest pain nonspecific etiology, seen in the emergency room on June 04, 2022. EKG showed left bundle branch block. Lexiscan stress test was done on July 10, 2022 with baseline left bundle branch block and frequent atrial premature contractions. She has small left ventricular size affecting the quality of the images, stress score is 6, there is questionable minimal ischemia of the inferior septum but no significant reversible ischemia noted, SDS is 2, ejection fraction 74% 2D echo was done in February 2021 showing normal LV size, EF 55 to 65%, PA pressure 30 mmHg History of syncope, treated as vasodepressor syncope, had a tilt table test in 2005. No further syncopal episodes reported. CT of the head without contrast done on February 19, 2021 showing no acute a bnormality. Continue to monitor Left bundle branch block, the record from 2005 indicate the presence of left bundle branch block. Continue to monitor. Small patent [place] with rrwa-se-yxezw shunt noted incidentally on echocardiogram on October 27, 2015. Asymptomatic continue to monitor, will plan to repeat echo after next f/u appt. Hyperlipidemia, intolerant to Lipitor secondary to myalgias. Maintained on Crestor, Lipid profile was done on September 20, 2021 showing total cholesterol 160, HDL 51, triglyceride 127, LDL 84. Continue to monitor Bilateral lower extremity pain and weakness, Patient has varicose vein and erythema and discomfort in her legs. I recommended trying compression socks. Venous Doppler study showed no evidence of DVT. Done in June 2022 Arterial segmental pressure was normal in September 2017. Hypothyroidism, followed and managed by primary care physician History of recent back surgery Moderate carotid stenosis on the left, mild on the right, ultrasound was done in June 2022. Continue to monitor MARSHALL LARSEN MD Apr 06, 2023 10:27
[2023-04-06] MEDS: DOCUSATE SODIUM 100 MG CAPSULE PO SCH ×2 (12:20→21:00)
[2023-04-06] MEDS: polyethylene glycoL POWDER 17 GM (MIRALAX) PACK PO SCH ×2 (12:20→21:00)
[2023-04-06] MEDS: ACETAMINOPHEN 325 MG TABLET PO PRN (12:22)
[2023-04-06] MEDS: HYDROcodone/ACETAMINOPHEN 5 MG/325 MG TABLET PO PRN ×2 (14:14→20:28)
[2023-04-06 14:17] VITALS: BP 125/74
[2023-04-06] MEDS: MICONAZOLE 2% POWDER (DESENEX AF) 90 GM TOP SCH ×2 (18:12→20:29)
[2023-04-06 19:33] VITALS: BP 134/60
[2023-04-06] MEDS: MELATONIN 3 MG TABLET PO SCH (20:28)
[2023-04-06] MEDS: FAMOTIDINE 20 MG TABLET PO SCH (20:28)
[2023-04-07 05:47] LABS: BASOPHILS % (AUTO) 1 % (0-10); EOSINOPHILS # (AUTO) 0.3 10^3/uL (0.0-0.3); EOSINOPHILS % (AUTO) 4 % (0-10); HEMATOCRIT 40 % (35-52); HEMOGLOBIN 12.7 g/dL (11.5-16.0); LYMPHOCYTES # (AUTO) 2.4 10^3/uL (1.0-4.0); LYMPHOCYTES % (AUTO) 30 % (12-44); MEAN CORPUSCULAR HEMOGLOBIN 31 pg (25-34); MEAN CORPUSCULAR HGB CONC 32 g/dL (32-36); MEAN CORPUSCULAR VOLUME 98 fL (80-99); MEAN PLATELET VOLUME 10.7 fL (9.0-12.2); MONOCYTES # (AUTO) 0.6 10^3/uL (0.0-1.0); MONOCYTES % (AUTO) 8 % (0-12); NEUTROPHILS # (AUTO) 4.5 10^3/uL (1.8-7.8); NEUTROPHILS % (AUTO) 57 % (42-75); PLATELET COUNT 200 10^3/uL (130-400); WHITE BLOOD COUNT 7.8 10^3/uL (4.3-11.0)
[2023-04-07 06:01] LABS: ALBUMIN 3.5 GM/DL (3.2-4.5)
[2023-04-07 06:02] LABS: CALCIUM 9.1 MG/DL (8.5-10.1)
[2023-04-07 06:04] LABS: TOTAL PROTEIN 5.8 GM/DL (6.4-8.2)
[2023-04-07 06:05] LABS: BILIRUBIN,TOTAL 0.4 MG/DL (0.1-1.0)
[2023-04-07 06:07] LABS: CREATININE SERUM 0.81 MG/DL (0.60-1.30)
--- NOTE | 2023-04-07 06:18 | PM&R Progress Note ---
Subjective HPI/CC On Admission Date Seen by Provider: Apr 07, 2023 Time Seen by Provider: 09:00 Subjective/Events-last exam 04/07/2023: Much improved overall Tearful at times Dementia is present no significant changes Labs normal 04/06/2023: Patient doing really well No new issues Drinking and eating well Ambulating well 04/05/2023: No issues Spouse at bedside visiting Improved overall Dr Jin answered pacemaker questions DVT Right leg likely occurred during transition from [place] when Lovenox had been held for pacemaker placement and OAC was in midst of restarting the day her right posterior knee pain occurred and USG ordered. Xarelto BID ordered for 3 weeks then once daily 04/04/2023: No major issues No syncope today but had an episode late after noon yesterday Appears much improved Slow recovery 04/03/2023: Much improved overall No pain Participation is good with therapy No falls Reviewed labs Review of Systems General: Fatigue, Malaise Objective Exam Vital Signs Vital Signs Date Time Temp Pulse Resp B/P (MAP) Pulse Ox O2 Delivery O2 Flow Rate FiO2 04/07/23 19:46 36.7 60 20 110/63 (79) 97 Room Air Capillary Refill : General Appearance: No Apparent Distress, WD/WN, Chronically ill, Obese HEENT: PERRL/EOMI, Normal ENT Inspection, Pharynx Normal Neck: Full Range of Motion, Normal Inspection, Non Tender, Supple, Carotid Bruit Respiratory: Chest Non Tender, Lungs Clear, Normal Breath Sounds, No Accessory Muscle Use, No Respiratory Distress Cardiovascular: Regular Rate, Rhythm, No Edema, No Gallop, No JVD, No Murmur, Normal Peripheral Pulses Gastrointestinal: Normal Bowel Sounds, No Organomegaly, No Pulsatile Mass, Non Tender, Soft Back: Normal Inspection, No CVA Tenderness, No Vertebral Tenderness Extremity: Normal Capillary Refill, Normal Inspection, Normal Range of Motion (Except left arm in sling), Non Tender, No Calf Tenderness, No Pedal Edema Neurologic/Psychiatric: Alert, Oriented x3, Normal 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 FIM Transfers Therapy Code Descriptions/Definitions Functional [place] Measure: 0=Not Assessed/NA 4=Minimal Assistance 1=Total Assistance 5=Supervision or Setup 2=Maximal Assistance 6=Modified [place] 3=Moderate Assistance 7=Complete IndependenceSCALE: Activities may be completed with or without assistive devices. 9-Nqzqvxwwoz-xkzcqrd completes the activity by him/herself with no assistance from a helper. 5-Set-up or Clean-up Assistance-helper sets up or cleans up; patient completes activity. [place] assists only prior to or following the activity. 4-Supervision or Touching Assistance-helper provides verbal cues and/or touching/steadying and/or contact guard assistance as patient completes act ivity. Assistance may be provided throughout the activity or intermittently. 3-Partial/Moderate Assistance-helper does LESS THAN HALF the effort. [place] lifts, holds or supports trunk or limbs, but provides less than half the effort. 2-Substantial/Maximal Assistance-helper does MORE THAN HALF the effort. [place] lifts or holds trunk or limbs and provides more than half the effort. 6-Fsanijmcv-hlfmtv does ALL the effort. Patient does none of the effort to complete the activity. Or, the assistance of 2 or more helpers is required for the patient to complete the activity. If activity was not attempted, code reason: 7-Patient Refused. 9-Not Applicable-not attempted and the patient did not perform the activity before the current illness, exacerbation or injury. 10-Not Attempted due to Environmental Limitations-(lack of equipment, weather restraints, etc.). 88-Not Attempted due to Medical Conditions or Safety Concerns. Roll Left to Right (QC): 3 (Min A ) Sit to Lying (QC): 3 (Min A ) Sit to Stand (QC): 4 Chair/Hwu-dp-Krmgh Xfer(QC): 3 (Min A ) Car Transfer (QC): 3 (Min A ) Gait Training Does the Patient Walk?: Yes Distance: 75 ft, 50 ft, 200 ft Walk 10 feet (QC): 4 Walk 50 ft with 2 Turns(QC): 4 Walk 150 ft (QC): 4 Walking 10ft/uneven surface-QC: 88 Gait Persons Needed: 1 Gait Assistive Device: FWW Wheelchair Training Does the Pt Use a Wheelchair?: No Wheel 50 ft with 2 turns (QC): 9 Wheel 150 ft (QC): 9 Type of Wheelchair: N/A Stair Training Stair Training: Handrails/: 2 handrails #of Steps: 4 1 Step (curb) (QC): 88 4 Steps (QC): 4 12 Steps (QC): 88 Stairs: Pattern: Step to Balance Picking up an Object (QC): 3 (Min A with emt p ) ADL-Treatment Eating (QC): 6 Oral Hygiene (QC): 5 (Set up at sink.) Shower/Bathe Self (QC): 4 (SBA for safety.) Upper Body Dressing (QC): 5 Lower Body Dressing (QC): 3 (Min assist to thread underwear over right foot. 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 on 04/01/2023 Encephalopathy from UTI much improved Fall Left rotator cuff injury remains in sling Hypertension Dementia Depression Post op DVT right leg dx 04/05/23 likely occurred during OSH hospital course when OAC Eliquis was held during wait for pacemaker given USG performed after arrival to ARU Plan: Aggressive PT and OT Ultimately return 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
[2023-04-07] MEDS: LEVOTHYROXINE 100 MCG (LEVOTHROID) TAB PO SCH (06:43)
[2023-04-07] MEDS: MULTIVIT W/MINERALS TAB (THERAGRAN M) PO SCH (06:43)
[2023-04-07] MEDS: RIVAROXABAN 15 MG TABLET (XARELTO) PO SCH ×2 (06:43→18:21)
[2023-04-07 07:34] VITALS: BP 134/60
[2023-04-07] MEDS: DOCUSATE SODIUM 100 MG CAPSULE PO SCH ×2 (07:59→20:34)
[2023-04-07] MEDS: GABAPENTIN 300 MG (NEURONTIN) CAP PO SCH ×2 (07:59→20:47)
[2023-04-07] MEDS: ROSUVASTATIN 5 MG (CRESTOR) TABLET PO SCH (08:00)
[2023-04-07] MEDS: DULoxetine 20 MG CAPSULE PO SCH (08:00)
[2023-04-07] MEDS: OMEGA 3 (FISH OIL) 1000 MG CAP PO SCH (08:00)
[2023-04-07] MEDS: ASPIRIN enteric coated 81MG TABLET PO SCH (08:00)
[2023-04-07] MEDS: HYDROcodone/ACETAMINOPHEN 5 MG/325 MG TABLET PO PRN (08:01)
[2023-04-07] MEDS: COQ10 100 MG PO SCH (08:03)
[2023-04-07] MEDS: polyethylene glycoL POWDER 17 GM (MIRALAX) PACK PO SCH ×2 (08:03→20:34)
[2023-04-07] MEDS: PREVAGEN PO SCH (08:04)
[2023-04-07] MEDS: SENNA W/DOCUSATE (SENOKOT S) TABLET PO SCH ×2 (08:04→20:34)
[2023-04-07] MEDS: MICONAZOLE 2% POWDER (DESENEX AF) 90 GM TOP SCH ×2 (08:06→20:49)
--- NOTE | 2023-04-07 09:11 | Cardiology Progress Note ---
Subjective Date Seen by Provider: Apr 07, 2023 Time Seen by Provider: 08:05 Subjective/Events-last exam Patient is with PT, no new complaints. Denies any chest pain or dyspnea Objective-Cardiology Exam Last Set of Vital Signs Vital Signs 04/07/23 04/07/23 07:34 09:08 Temp 36.2 Pulse 62 Resp 16 B/P (MAP) 134/60 (84) Pulse Ox 96 O2 Delivery Room Air I&O Intake and Output 04/07/23 00:00 Intake Total 2650 ml Balance 2650 ml Intake Oral 2650 ml # Voids 8 # Bowel Movements 2 General: Alert, Oriented X3, Cooperative HEENT: Atraumatic, PERRLA Neck: Supple, No JVD, No Thyromegaly Lungs: Clear to Auscultation, Normal Air Movement Heart: Regular Rate, Normal S1, Normal S2, No Murmurs Abdomen: Normal Bowel Sounds, Soft, No Tenderness, No Hepatosplenomegaly, No Masses Extremities: No Clubbing, No Cyanosis, No Edema, Normal Pulses, No Tenderness/Swelling Skin: No Rashes, No Breakdown, No Significant Lesion Neuro: Normal Gait, Normal Speech, Strength at 5/5 X4 Ext, Normal Tone, Sensation Intact Psych/Mental Status: Mental Status NL, Mood NL Results Lab Laboratory Tests 04/07/23 05:42 A/P-Cardiology Admission Diagnosis UTI High grade AV block, s/p leadless PPM HTN LBBB Assessment/Plan Generalized fatigue and weakness Status post complex UTI Currently admitted to acute rehab. High-grade AV block, intermittent complete heart block Questionable transient episode of atrial fibrillation with bradycardia. Could be artifact Underwent leadless pacemaker placement with Dr Sam Device is in place, Twelve-lead EKG done on April 03, 2023 showing sinus rhythm with ventricular paced rhythm. DVT noted in the right popliteal vein on April 05, 2023 US Started on Xarelto 15 mg twice daily. History of hypertension, history of orthostatic hypotension, vasodepressor syncope. Currently blood pressure is stable. History of chest pain nonspecific etiology, seen in the emergency room on June 04, 2022. EKG showed left bundle branch block. Lexiscan stress test was done on July 10, 2022 with baseline left bundle branch block and frequent atrial premature contractions. She has small left ventricular size affecting the quality of the images, stress score is 6, there is questionable minimal ischemia of the inferior septum but no significant rever sible ischemia noted, SDS is 2, ejection fraction 74% 2D echo was done in February 2021 showing normal LV size, EF 55 to 65%, PA pressure 30 mmHg History of syncope, treated as vasodepressor syncope, had a tilt table test in 2005. No further syncopal episodes reported. CT of the head without contrast done on February 19, 2021 showing no acute abnormality. Continue to monitor Left bundle branch block, the record from 2005 indicate the presence of left bundle branch block. Continue to monitor. Small patent miller ov[place] with mlrl-zs-rrcpr shunt noted incidentally on echocardiogram on October 27, 2015. Asymptomatic continue to monitor, will plan to repeat echo after next f/u appt. Hyperlipidemia, intolerant to Lipitor secondary to myalgias. Maintained on Crestor, Lipid profile was done on September 20, 2021 showing total cholesterol 160, HDL 51, triglyceride 127, LDL 84. Continue to monitor Bilateral lower extremity pain and weakness, Patient has varicose vein and erythema and discomfort in her legs. I recommended trying compression socks. Venous Doppler study showed no evidence of DVT. Done in June 2022 Arterial segmental pressure was normal in September 2017. Hypothyroidism, followed and managed by primary care physician History of recent back surgery Moderate carotid stenosis on the left, mild on the right, ultrasound was done in June 2022. Continue to monitor Supervisory-Addendum Brief Supervisory Addendum Participated in pt care: history, MDM, physical Personally performed: exam, history, MDM Care discussed with: SIMA Results interpretation: Verified all documentation Notes: Patient was seen and evaluated with Ciaran, examination performed, management plan was discussed, agree with the current scribed note, I made few changes to the note using Italic font Patient was seen at bedside, comfortable, no new complaint Will DC telemetry Continue to monitor CIARAN COLON Apr 07, 2023 09:11 MARSHALL LARSEN MD Apr 07, 2023 10:57
--- NOTE | 2023-04-07 09:48 | Physical Therapy Daily Note ---
PT Daily Note-Current Subjective Pt in recliner and good for therapy. pt was receiving pain med upon arrival. pt stated a "weak" feeling on the back of the right knee. pt does have a blood clot confirmed with nursing. pt was left in recliner after therapy session with call light and all needs met. no reported pain number at this time. Pain Section J - Health Conditions 1. Rarely or not at all 2. Occasionally 3. Frequently 4. Almost constantly 8. Unable to answer Pain Effect on Sleep: 1 Pain Interference with Therapy: 1 Pain Interference w/Day-to-Day: 1 Mental Status Patient Orientation: Person, Place, Time, Situation Transfers SCALE: Activities may be completed with or without assistive devices. 9-Ukkowponnz-dvohfhb completes the activity by him/herself with no assistance from a helper. 5-Set-up or Clean-up Assistance-helper sets up or cleans up; patient completes activity. [place] assists only prior to or following the activity. 4-Supervision or Touching Assistance-helper provides verbal cues and/or touching/steadying and/or contact guard assistance as patient completes activity. Assistance may be provided throughout the activity or intermittently. 3-Partial/Moderate Assistance-helper does LESS THAN HALF the effort. [place] lifts, holds or supports trunk or limbs, but provides less than half the effort. 2-Substantial/Maximal Assistance-helper does MORE THAN HALF the effort. [place] lifts or holds trunk or limbs and provides more than half the effort. 6-Wxplppsqr-otktjz does ALL the effort. Patient does none of the effort to complete the activity. Or, the assistance of 2 or more helpers is required for the patient to complete the activity. If activity was not attempted, code reason: 7-Patient Refused. 9-Not Applicable-not attempted and the patient did not perform the activity before the current illness, exacerbation or injury. 10-Not Attempted due to Environmental Limitations-(lack of equipment, weather restraints, etc.). 88-Not Attempted due to Medical Conditions or Safety Concerns. Sit to Stand (QC): 4 Chair/Rzc-ft-Hvriu Xfer(QC): 4 Toilet Transfer (QC): 4 Weight Bearing Right Lower Extremity: Right Full Weight Bearing Left Lower Extremity: Left Full Weight Bearing NWB L UE with sling in place Gait Training Walk 10 feet (QC): 4 Walk 50 ft with 2 Turns(QC): 4 Walk 150 ft (QC): 4 Gait Assistive Device: Walker Standard Wheelchair Training Wheel 50 ft with 2 turns (QC): 9 Wheel 150 ft (QC): 9 Exercises Seated Therapy Exercises: Sit to stand, Long arc quads, Hip flexion, Hip abd/add Treatments Pt is able to ambulate a total of 435ft with 5 rest sitting rest breaks wit CGA and RW, pt does have slight knee buckling periodically but is able to correct herself with RW. pt ambulated 104, 67, 48, 112, 104 ft intervals. at sitting rest breaks pt preformed sitting there-ex in all planes of motion with BLE for 12 reps per exercise. Assessment Current Status: Good Progress PT Mcfp Goals Machine Ii Cutter Goals PT Mcfp Goals Time Frame: Apr 16, 2023 Roll Left & Right (QC): 6 Sit to Lying (QC): 6 Lying-Sitting on Side/Bed(QC): 6 Sit to Stand (QC): 6 Chair/Gqe-ln-Xfgqr Xfer(QC): 6 Toilet Transfer (QC): 6 Car Transfer (QC): 6 Does the Patient Walk: Yes Walk 10 feet (QC): 4 Walk 50ft with 2 Turns (QC): 4 Walk 150 ft (QC): 4 Walking 10ft on Uneven Surface: 4 1 Step (curb) (QC): 4 4 Steps (QC): 4 12 Steps (QC): 4 Picking up an Object (QC): 6 Does the Pt use WC or Scooter?: No Wheel 50 feet with 2 turns (QC: 9 Type: N/A Wheel 150 feet: 9 Type: N/A PT Plan Treatment/Plan Treatment Plan: Continue Plan of Care Treatment Plan: Functional Strength, Group Therapy, Safety, Therapeutic Exercise Treatment Duration: Apr 03, 2023 Frequency: Modified Program (IRF) Estimated Hrs Per Day: 2 hours per day Patient and/or Family Agrees t: Yes Time Time In: 0800 Time Out: 0900 DATE: Apr 07, 2023 Total Billed Treatment Time: 60 Total Billed Treatment 1 GT x 3 EX x 1 Maggie Deleon NURSE TECHNICIAN Apr 07, 2023 09:48
--- NOTE | 2023-04-07 11:21 | Speech Therapy Daily Note ---
Speech Daily Progress Note Subjective Date Seen by Provider: Apr 07, 2023 Time Seen by Provider: 10:35 Pt seen for a cotreat with OT this date to address functional sequencing in ADLs. Pt pleasant and cooperative throughout the session. Pt repeatedly reports her right knee doesn't feel right during the session. Pain Location: No Pain Reported Objective Pt sequences the steps to shower with 100% accuracy with min verbal cues. Pt has to be cued to remain standing to pull down her pants. Pt also has to be prompted to wash her hair when showering. Pt sequences steps to complete laundry with 100% accuracy independently. Assessment Assessment Current Status: Fair Progress Treatment Plan Continue Plan of Care Speech Short Term Goals Short Term Goals Short Term Goals Pt will complete memory and mental manipulation tasks with 80% accuracy with min verbal cues. Speech Housetrailer Servicer Goals Housetrailer Servicer Goals Pt will complete language tasks with 80% accuracy with min verbal cues. Pt will complete executive function tasks with 80% accuracy with min verbal cues. Speech-Plan Patient/Family Goals Patient/Family Goals: Pt's goal is to return home with her . Treatment Plan Speech Therapy Treatment Plan: Continue Plan of Care Treatment Duration: Apr 03, 2023 Frequency: Modified Program (IRF) Estimated Hrs Per Day: Other Rehab Potential: Good Pt/Family Agrees to Plan: Yes Safety Risks/Education Teaching Recipient: Patient Teaching Methods: Discussion Response to Teaching: Verbalize Understanding Education Topics Provided: Pt educated on purpose of therapy tasks. Pt receptive and verbalized understanding. Time Speech Therapy Time In: 10:35 Speech Therapy Time Out: 11:15 DATE: Apr 07, 2023 Total Billed Time: 40 Billed Treatment Time S/L TX cotreat with OT Álvaro Walter Speech Therapy Apr 07, 2023 11:21
--- NOTE | 2023-04-07 13:23 | Physical Therapy Daily Note ---
PT Daily Note-Current Subjective Pt in recliner upon arrival and good for therapy. pt stated she just wants to get home to her and has to get stronger. pt reports no pain only weakness in the right LE pt was left in recliner with call light and all needs met after therapy this day. Pain Section J - Health Conditions 1. Rarely or not at all 2. Occasionally 3. Frequently 4. Almost constantly 8. Unable to answer Pain Effect on Sleep: 1 Pain Interference with Therapy: 1 Pain Interference w/Day-to-Day: 1 Mental Status Patient Orientation: Person, Place, Time, Situation Transfers SCALE: Activities may be completed with or without assistive devices. 0-Muzmlagbbx-jclemlm completes the activity by him/herself with no assistance from a helper. 5-Set-up or Clean-up Assistance-helper sets up or cleans up; patient completes activity. [place] assists only prior to or following the activity. 4-Supervision or Touching Assistance-helper provides verbal cues and/or touching/steadying and/or contact guard assistance as patient completes activity. Assistance may be provided throughout the activity or intermittently. 3-Partial/Moderate Assistance-helper does LESS THAN HALF the effort. [place] lifts, holds or supports trunk or limbs, but provides less than half the effort. 2-Substantial/Maximal Assistance-helper does MORE THAN HALF the effort. [place] lifts or holds trunk or limbs and provides more than half the effort. 8-Klztfucwx-kjeass does ALL the effort. Patient does none of the effort to complete the activity. Or, the assistance of 2 or more helpers is required for the patient to complete the activity. If activity was not attempted, code reason: 7-Patient Refused. 9-Not Applicable-not attempted and the patient did not perform the activity before the current illness, exacerbation or injury. 10-Not Attempted due to Environmental Limitations-(lack of equipment, weather restraints, etc.). 88-Not Attempted due to Medical Conditions or Safety Concerns. Weight Bearing Right Lower Extremity: Right Full Weight Bearing Left Lower Extremity: Left Full Weight Bearing NWB L UE with sling in place Exercises Seated Therapy Exercises: Ankle pumps, Sit to stand, Long arc quads, Hip flexion, Hamstring Curls, Hip abd/add, Glut set Treatments Pt preformed sitting ther-ex in all planes of motion available with BLE for 3 sets of 12 with rest break in between each set. Assessment Current Status: Good Progress PT Elementary Education Tutor Goals Detention Goals PT Detention Goals Time Frame: Apr 16, 2023 Roll Left & Right (QC): 6 Sit to Lying (QC): 6 Lying-Sitting on Side/Bed(QC): 6 Sit to Stand (QC): 6 Chair/Sqt-fl-Knpqi Xfer(QC): 6 Toilet Transfer (QC): 6 Car Transfer (QC): 6 Does the Patient Walk: Yes Walk 10 feet (QC): 4 Walk 50ft with 2 Turns (QC): 4 Walk 150 ft (QC): 4 Walking 10ft on Uneven Surface: 4 1 Step (curb) (QC): 4 4 Steps (QC): 4 12 Steps (QC): 4 Picking up an Object (QC): 6 Does the Pt use WC or Scooter?: No Wheel 50 feet with 2 turns (QC: 9 Type: N/A Wheel 150 feet: 9 Type: N/A PT Plan Treatment/Plan Treatment Plan: Continue Plan of Care Treatment Plan: Functional Strength, Group Therapy, Safety, Therapeutic Exercise Treatment Duration: Apr 03, 2023 Frequency: Modified Program (IRF) Estimated Hrs Per Day: 2 hours per day Patient and/or Family Agrees t: Yes Time Time In: 1145 Time Out: 1200 DATE: Apr 07, 2023 Total Billed Treatment Time: 15 Total Billed Treatment 1 ex Maggie Deleon PARAPROFESSIONAL EDUCATION ASSISTANT Apr 07, 2023 13:23
--- NOTE | 2023-04-07 14:47 | Occupational Ther Daily Note ---
OT Current Status-Daily Note Subjective Pt sitting in chair upon arrival, alert and cooperative. Pt mentioned weakness and pain behind R knee. OT/ST co treat ([id number]) ADL-Treatment Pt ambulated to bathroom with FWW, CGA and completed toilet hygiene. Pt then washed hands and ambulated back to chair in room with FWW, CGA. Pt requested a shower, so CGA to shower bench pt ambulated and completed shower, with SBA, pt was able to wash/bathe self with close SBA for safety when pt stood two times. During this time, Cotreat OT/ST ([id number]) OT worked on ADLs and transfers, while ST focused on functional sequencing of certain tasks. Pt completed shower and required verbal cues to wash hair. Pt then dried self off and transferred out of shower to dry off and completed upper and lower body dressing which pt required set up assistance. Pt then completed footwear with set up assist as well. Pt stood at sink using FWW and completed grooming with SBA while standing still at sink, attempted to push walker off to side as though she didn't need it, therapist educated pt the importance of using for safety while in ARU. Pt then participated in a different sequencing task requiring her to do laundry and pt demonstrated ability to complete task itself independently, ambulating to and from room, Pt requires CGA. Pt ambulated back to room with CGA using FWW and sat in chair in room, pt was left with call light in hand, all needs met at this time. Therapy Code Descriptions/Definitions Functional [place] Measure: 0=Not Assessed/NA 4=Minimal Assistance 1=Total Assistance 5=Supervision or Setup 2=Maximal Assistance 6=Modified [place] 3=Moderate Assistance 7=Complete IndependenceSCALE: Activities may be completed with or without assistive devices. 6-Heqnrddnuv-uxpcbla completes the activity by him/herself with no assistance from a helper. 5-Set-up or Clean-up Assistance-helper sets up or cleans up; patient completes activity. [place] assists only prior to or following the activity. 4-Supervision or Touching Assistance-helper provides verbal cues and/or touching/steadying and/or contact guard assistance as patient completes activity. Assistance may be provided throughout the activity or intermittently. 3-Partial/Moderate Assistance-helper does LESS THAN HALF the effort. [place] lifts, holds or supports trunk or limbs, but provides less than half the effort. 2-Substantial/Maximal Assistance-helper does MORE THAN HALF the effort. [place] lifts or holds trunk or limbs and provides more than half the effort. 1-Tadhxertg-mddehq does ALL the effort. Patient does none of the effort to complete the activity. Or, the assistance of 2 or more helpers is required for the patient to complete the activity. If activity was not attempted, code reason: 7-Patient Refused. 9-Not Applicable-not attempted and the patient did not perform the activity before the current illness, exacerbation or injury. 10-Not Attempted due to Environmental Limitations-(lack of equipment, weather restraints, etc.). 88-Not Attempted due to Medical Conditions or Safety Concerns. Shower/Bathe Self (QC): 4 Upper Body Dressing (QC): 5 Lower Body Dressing (QC): 5 On/Off Footwear: 5 Toileting Hygiene (QC): 4 Education OT Patient Education: Correct positioning, Energy conservation, Progress toward Goal/Update tx plan, Purpose of tx/functional activities, Transfer techniques Teaching Recipient: Patient Teaching Methods: Discussion Response to Teaching: Verbalize Understanding OT Short Term Goals Short Term Goals Time Frame: Apr 07, 2023 Eatin Oral hygiene: 6 OT Skilled Nursing Goals Court Collections Officer Goals Acute change in mental status: 0 Inattention: 0 Disorganized thinkin Altered level of consciousness: 0 Oral Hygiene (QC): 6 Toileting Hygiene (QC): 6 Shower/Bathe Self (QC): 5 Upper Body Dressing (QC): 5 Lower Body Dressing (QC): 5 On/Off Footwear (QC): 5 1=Demonstrate adherence to instructed precautions during ADL tasks. 2=Patient will verbalize/demonstrate understanding of assistive devices/modifications for ADL. 3=Patient will improve strength/tolerance for activity to enable patient to perform ADL's. OT Education/Plan Problem List/Assessment Assessment: Decreased Activ Tolerance, Decreased Safety Aware, Decreased UE [facility] Discharge Recommendations Plan/Recommendations: Continue POC Treatment Plan/Plan of Care Patient would benefit from OT for education, treatment and training to promote independence in ADL's, mobility, safety and/or upper extremity function for ADL's. Plan of Care: ADL Retraining, Concurrent Therapy, Functional Mobility, UE Funct Exercise/Act Treatment Duration: Apr 03, 2023 Frequency: At least 5 of 7 days/Wk (IRF) Estimated Hrs Per Day: 1.5 hours per day Agreement: Yes Rehab Potential: Good Time Start Time: 10:15 Stop Time: 11:15 DATE: Apr 07, 2023 Total Time Billed (hr/min): 60 Billed Treatment Time 1 visit ADL 3 FA 1 COTX ([id number]) (40) (20 Individual treat time) Myrna Medellin COTA Apr 07, 2023 14:47
--- NOTE | 2023-04-07 14:57 | Occupational Ther Daily Note ---
OT Current Status-Daily Note Subjective Pt sitting in chair upon arrival, alert and cooperative. No pain mentioned. ADL-Treatment Pt requested to use restroom, pt ambulated to bathroom using FWW, CGA, working on functional ambulation required for daily activities. Pt completed toilet hygiene with CGA when standing to cleanse buttocks. Pt ambulated to sink to wash hands and then ambulate back to chair in room pt required verbal cues to keep walker close to pt when ambulating. Pt was left in chair in room, all needs met at this time, call light with in reach. Therapy Code Descriptions/Definitions Functional [place] Measure: 0=Not Assessed/NA 4=Minimal Assistance 1=Total Assistance 5=Supervision or Setup 2=Maximal Assistance 6=Modified [place] 3=Moderate Assistance 7=Complete IndependenceSCALE: Activities may be completed with or without assistive devices. 8-Iwjbxqufgv-vhiqytx completes the activity by him/herself with no assistance from a helper. 5-Set-up or Clean-up Assistance-helper sets up or cleans up; patient completes activity. [place] assists only prior to or following the activity. 4-Supervision or Touching Assistance-helper provides verbal cues and/or touching/steadying and/or contact guard assistance as patient completes activity. Assistance may be provided throughout the activity or intermittently. 3-Partial/Moderate Assistance-helper does LESS THAN HALF the effort. [place] lifts, holds or supports trunk or limbs, but provides less than half the effort. 2-Substantial/Maximal Assistance-helper does MORE THAN HALF the effort. [place] lifts or holds trunk or limbs and provides more than half the effort. 2-Phobulcvo-lxmfpz does ALL the effort. Patient does none of the effort to complete the activity. Or, the assistance of 2 or more helpers is required for the patient to complete the activity. If activity was not attempted, code reason: 7-Patient Refused. 9-Not Applicable-not attempted and the patient did not perform the activity before the current illness, exacerbation or injury. 10-Not Attempted due to Environmental Limitations-(lack of equipment, weather restraints, etc.). 88-Not Attempted due to Medical Conditions or Safety Concerns. Toileting Hygiene (QC): 4 Education OT Patient Education: Energy conservation, Progress toward Goal/Update tx plan, Purpose of tx/functional activities, Safety issues, Transfer techniques Teaching Recipient: Patient Response to Teaching: Verbalize Understanding OT Short Term Goals Short Term Goals Time Frame: Apr 07, 2023 Eatin Oral hygiene: 6 OT Bottom Stainer Goals Bottom Stainer Goals Acute change in mental status: 0 Inattention: 0 Disorganized thinkin Altered level of consciousness: 0 Oral Hygiene (QC): 6 Toileting Hygiene (QC): 6 Shower/Bathe Self (QC): 5 Upper Body Dressing (QC): 5 Lower Body Dressing (QC): 5 On/Off Footwear (QC): 5 1=Demonstrate adherence to instructed precautions during ADL tasks. 2=Patient will verbalize/demonstrate understanding of assistive devices/sabas fications for ADL. 3=Patient will improve strength/tolerance for activity to enable patient to perform ADL's. OT Education/Plan Problem List/Assessment Assessment: Decreased Activ Tolerance, Decreased Safety Aware, Decreased UE Strength Discharge Recommendations Plan/Recommendations: Continue POC Treatment Plan/Plan of Care Patient would benefit from OT for education, treatment and training to promote independence in ADL's, mobility, safety and/or upper extremity function for ADL's. Plan of Care: ADL Retraining, Concurrent Therapy, Functional Mobility, UE Funct Exercise/Act Treatment Duration: Apr 03, 2023 Frequency: At least 5 of 7 days/Wk (IRF) Estimated Hrs Per Day: 1.5 hours per day Agreement: Yes Rehab Potential: Good Time Start Time: 13:50 Stop Time: 14:00 DATE: Apr 07, 2023 Total Time Billed (hr/min): 10 Billed Treatment Time 1 visit ADL 1 (10) Myrna Medellin COTA Apr 07, 2023 14:57
[2023-04-07 19:46] VITALS: BP 110/63
[2023-04-07] MEDS: MELATONIN 3 MG TABLET PO SCH (20:47)
[2023-04-07] MEDS: FAMOTIDINE 20 MG TABLET PO SCH (20:47)
--- NOTE | 2023-04-08 05:42 | PM&R Progress Note ---
Subjective HPI/CC On Admission Date Seen by Provider: Apr 08, 2023 Time Seen by Provider: 09:00 Subjective/Events-last exam 04/08/2023: Patient doing really well No pain is reported Checking meds and labs Family training today 04/07/2023: Much improved overall Tearful at times Dementia is present no significant changes Labs normal 04/06/2023: Patient doing really well No new issues Drinking and eating well Ambulating well 04/05/2023: No issues Spouse at bedside visiting Improved overall Dr Jin answered pacemaker questions DVT Right leg likely occurred during transition from [place] when Lovenox had been held for pacemaker placement and OAC was in midst of restarting the day her right posterior knee pain occurred and USG ordered. Xarelto BID ordered for 3 weeks then once daily 04/04/2023: No major issues No syncope today but had an episode late after noon yesterday Appears much improved Slow recovery 04/03/2023: Much improved overall No pain Participation is good with therapy No falls Reviewed labs Review of Systems General: Fatigue, Malaise Objective Exam Vital Signs Vital Signs Date Time Temp Pulse Resp B/P (MAP) Pulse Ox O2 Delivery O2 Flow Rate FiO2 04/08/23 19:35 36.8 74 20 129/81 (97) 94 Room Air Capillary Refill : General Appearance: No Apparent Distress, WD/WN, Chronically ill, Obese HEENT: PERRL/EOMI, Normal ENT Inspection, Pharynx Normal Neck: Full Range of Motion, Normal Inspection, Non Tender, Supple, Carotid Bruit Respiratory: Chest Non Tender, Lungs Clear, Normal Breath Sounds, No Accessory Muscle Use, No Respiratory Distress Cardiovascular: Regular Rate, Rhythm, No Edema, No Gallop, No JVD, No Murmur, Normal Peripheral Pulses Gastrointestinal: Normal Bowel Sounds, No Organomegaly, No Pulsatile Mass, Non Tender, Soft Back: Normal Inspection, No CVA Tenderness, No Vertebral Tenderness Extremity: Normal Capillary Refill, Normal Inspection, Normal Range of Motion (Except left arm in sling), Non Tender, No Calf Tenderness, No Pedal Edema Neurologic/Psychiatric: Alert, Oriented x3, Normal Mood/Affect, asset protection manager II-XII Norm as Tested, Abnormal Gait, Depressed Affect, Motor Weakness ( generalized 4/5) Skin: Normal Color, Warm/Dry Lymphatic: No Adenopathy Results/Procedures Lab Patient resulted labs reviewed. FIM Transfers Therapy Code Descriptions/Definitions Functional [place] Measure: 0=Not Assessed/NA 4=Minimal Assistance 1=Total Assistance 5=Supervision or Setup 2=Maximal Assistance 6=Modified [place] 3=Moderate Assistance 7=Complete IndependenceSCALE: Activities may be completed with or without assistive devices. 3-Rigznkylpy-gtvxuzk completes the activity by him/herself with no assistance from a helper. 5-Set-up or Clean-up Assistance-helper sets up or cleans up; patient completes activity. [place] assists only prior to or following the activity. 4-Supervision or Touching Assistance-helper provides verbal cues and/or touching/steadying and/or contact guard assistance as patient completes activity. Assistance may be provided throughout the activity or intermittently. 3-Partial/Moderate Assistance-helper does LESS THAN HALF the effort. [place] lifts, holds or supports trunk or limbs, but provides less than half the effort. 2-Substantial/Maximal Assistance-helper does MORE THAN HALF the effort. [place] lifts or holds trunk or limbs and provides more than half the effort. 8-Rbrlwtbcw-nmpgjf does ALL the effort. Patient does none of the effort to complete the activity. Or, the assistance of 2 or more helpers is required for the patient to complete the activity. If activity was not attempted, code reason: 7-Patient Refused. 9-Not Applicable-not attempted and the patient did not perform the activity before the current illness, exacerbation or injury. 10-Not Attempted due to Environmental Limitations-(lack of equipment, weather restraints, etc.). 88-Not Attempted due to Medical Conditions or Safety Concerns. Roll Left to Right (QC): 3 (Min A ) Sit to Lying (QC): 3 (Min A ) Sit to Stand (QC): 4 Chair/Xjr-se-Gyvwz Xfer(QC): 4 Car Transfer (QC): 3 (Min A ) Gait Training Does the Patient Walk?: Yes Distance: 75 ft, 50 ft, 200 ft Walk 10 feet (QC): 4 Walk 50 ft with 2 Turns(QC): 4 Walk 150 ft (QC): 4 Walking 10ft/uneven surface-QC: 88 Gait Persons Needed: 1 Gait Assistive Device: Walker Standard Wheelchair Training Does the Pt Use a Wheelchair?: No Wheel 50 ft with 2 turns (QC): 9 Wheel 150 ft (QC): 9 Type of Wheelchair: N/A Stair Training Stair Training: Handrails/: 2 handrails #of Steps: 4 1 Step (curb) (QC): 88 4 Steps (QC): 4 12 Steps (QC): 88 Stairs: Pattern: Step to Balance Picking up an Object (QC): 3 (Min A with slot ambassador ) ADL-Treatment Eating (QC): 6 Oral Hygiene (QC): 5 (Set up at sink.) Shower/Bathe Self (QC): 4 Upper Body Dressing (QC): 5 Lower Body Dressing (QC): 5 On/Off Footwear (QC): 5 Toileting Hygiene (QC): 4 Toilet Transfer (QC): 4 (CGA) Assessment/Plan Assessment and Plan Assess & Plan/Chief Complaint 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 on 04/01/2023 Encephalopathy from UTI much improved Fall Left rotator cuff injury remains in sling Hypertension Dementia Depression Post op DVT right leg dx 04/05/23 likely occurred during OSH hospital course when OAC Eliquis was held during wait for pacemaker given USG performed after arrival to ARU Plan: Aggressive PT and OT Ultimately return back home to spouse 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
[2023-04-08] MEDS: MULTIVIT W/MINERALS TAB (THERAGRAN M) PO SCH (06:03)
[2023-04-08] MEDS: RIVAROXABAN 15 MG TABLET (XARELTO) PO SCH ×2 (06:03→18:10)
[2023-04-08] MEDS: LEVOTHYROXINE 100 MCG (LEVOTHROID) TAB PO SCH (06:03)
[2023-04-08] MEDS: OMEGA 3 (FISH OIL) 1000 MG CAP PO SCH (08:06)
[2023-04-08] MEDS: GABAPENTIN 300 MG (NEURONTIN) CAP PO SCH ×2 (08:06→20:26)
[2023-04-08] MEDS: DOCUSATE SODIUM 100 MG CAPSULE PO SCH ×2 (08:07→20:27)
[2023-04-08] MEDS: DULoxetine 20 MG CAPSULE PO SCH (08:07)
[2023-04-08] MEDS: SENNA W/DOCUSATE (SENOKOT S) TABLET PO SCH ×2 (08:07→20:27)
[2023-04-08] MEDS: ROSUVASTATIN 5 MG (CRESTOR) TABLET PO SCH (08:07)
[2023-04-08] MEDS: ASPIRIN enteric coated 81MG TABLET PO SCH (08:07)
[2023-04-08] MEDS: polyethylene glycoL POWDER 17 GM (MIRALAX) PACK PO SCH ×2 (08:08→20:27)
[2023-04-08] MEDS: COQ10 100 MG PO SCH (08:09)
[2023-04-08] MEDS: MICONAZOLE 2% POWDER (DESENEX AF) 90 GM TOP SCH ×2 (08:10→20:27)
[2023-04-08] MEDS: PREVAGEN PO SCH (08:10)
[2023-04-08 08:21] VITALS: BP 119/64
[2023-04-08 08:33] VITALS: BP 127/60
--- NOTE | 2023-04-08 08:38 | Cardiology Progress Note ---
Subjective Date Seen by Provider: Apr 08, 2023 Time Seen by Provider: 08:05 Subjective/Events-last exam Patient sitting up in chair, reports brief episode of dizziness while doing exercises this morning. Objective-Cardiology Exam Last Set of Vital Signs Vital Signs 04/08/23 04/08/23 04/08/23 08:21 08:33 08:36 Temp 36.8 Pulse 72 Resp 16 B/P (MAP) 127/60 (82) Pulse Ox 96 O2 Delivery Room Air I&O Intake and Output 04/07/23 23:59 Intake Total 2220 ml Balance 2220 ml Intake Oral 2220 ml # Voids 8 # Bowel Movements 1 General: Alert, Oriented X3, Cooperative HEENT: Atraumatic, PERRLA Neck: Supple, No JVD, No Thyromegaly Lungs: Clear to Auscultation, Normal Air Movement Heart: Regular Rate, Normal S1, Normal S2, No Murmurs Abdomen: Normal Bowel Sounds, Soft, No Tenderness, No Hepatosplenomegaly, No Masses Extremities: No Clubbing, No Cyanosis, No Edema, Normal Pulses, No Tenderness/S welling Skin: No Rashes, No Breakdown, No Significant Lesion Neuro: Normal Gait, Normal Speech, Strength at 5/5 X4 Ext, Normal Tone, Sensation Intact Psych/Mental Status: Mental Status NL, Mood NL A/P-Cardiology Admission Diagnosis UTI High grade AV block, s/p leadless PPM HTN LBBB Assessment/Plan Generalized fatigue and weakness Status post complex UTI Currently admitted to acute rehab. High-grade AV block, intermittent complete heart block Questionable transient episode of atrial fibrillation with bradycardia. Could be artifact Underwent leadless pacemaker placement with Dr Sam Device is in place, Twelve-lead EKG done on April 03, 2023 showing sinus rhythm with ventricular paced rhythm. DVT noted in the right popliteal vein on April 05, 2023 US Started on Xarelto 15 mg twice daily. History of hypertension, history of orthostatic hypotension, vasodepressor syncope. Currently blood pressure is stable. History of chest pain nonspecific etiology, seen in the emergency room on June 04, 2022. EKG showed left bundle branch block. Lexiscan stress test was done on July 10, 2022 with baseline left bundle branch block and frequent atrial premature contractions. She has small left ventricular size affecting the quality of the images, stress score is 6, there is questionable minimal ischemia of the inferior septum but no significant reversible ischemia noted, SDS is 2, ejection fraction 74% 2D echo was done in February 2021 showing normal LV size, EF 55 to 65%, PA pressure 30 mmHg History of syncope, treated as vasodepressor syncope, had a tilt table test in 2005. No further syncopal episodes reported. CT of the head without contrast done on February 19, 2021 showing no acute abnormality. Continue to monitor Left bundle branch block, the record from 2005 indicate the presence of left bundle branch block. Continue to monitor. Small patent [place] with wnly-bk-eckgs shunt noted incidentally on echocardiogram on October 27, 2015. Asymptomatic continue to monitor, will plan to repeat echo after next f/u appt. Hyperlipidemia, intolerant to Lipitor secondary to myalgias. Maintained on Crestor, Lipid profile was done on September 20, 2021 showing total cholesterol 160, HDL 51, triglyceride 127, LDL 84. Continue to monitor Bilateral lower extremity pain and weakness, Patient has varicose vein and erythema and discomfort in her legs. I recommended trying compression socks. Venous Doppler study showed no evidence of DVT. Done in June 2022 Arterial segmental pressure was normal in September 2017. Hypothyroidism, followed and managed by primary care physician History of recent back surgery Moderate carotid stenosis on the left, mild on the right, ultrasound was done in June 2022. Continue to monitor Supervisory-Addendum Brief Supervisory Addendum Participated in pt care: history, MDM, physical Personally performed: exam, history, MDM Care discussed with: SIMA Results interpretation: Verified all documentation Notes: Patient was seen and evaluated with Ciaran, examination performed, management plan was discussed, agree with the current scribed note, I made few changes to the note using Italic font Patient was seen at bedside, complaining of mild dizziness this morning Heart rate and blood pressure is stable Continue to monitor, no changes are recommended CIARAN COLON Apr 08, 2023 08:38 MARSHALL LARSEN MD Apr 08, 2023 08:52
--- NOTE | 2023-04-08 10:00 | Speech Therapy Daily Note ---
Speech Daily Progress Note Subjective Date Seen by Provider: Apr 08, 2023 Time Seen by Provider: 09:00 Pt sitting up in her recliner asleep when GREASE MAN enters room. Pt easily roused to filer helper voice. Pt pleasant and cooperative throughout the session. Pt reports she slept well last night. She requests chapstick for her dry lips. Pain Location: No Pain Reported Objective Pt completes card activity targeting reasoning, problem solving, attention, and sequencing with 80% accuracy with min cues. Pt had to sequence cards given to her so each card connected to the next by at least 1 characteristic (shape, color, number). Pt required verbal prompts occasionally throughout the activity. Pt's ability to complete the task improve throughout the session requiring less cuing. Assessment Assessment Current Status: Good Progress Treatment Plan Continue Plan of Care Speech Short Term Goals Short Term Goals Short Term Goals Pt will complete memory and mental manipulation tasks with 80% accuracy with min verbal cues. Speech [facility] Goals Shoulder Puncher Goals Pt will complete language tasks with 80% accuracy with min verbal cues. Pt will complete executive function tasks with 80% accuracy with min verbal cues. Speech-Plan Patient/Family Goals Patient/Family Goals: Pt's goal is to return home with her . Treatment Plan Speech Therapy Treatment Plan: Continue Plan of Care Treatment Duration: Apr 03, 2023 Frequency: Modified Program (IRF) Estimated Hrs Per Day: Other Rehab Potential: Good Pt/Family Agrees to Plan: Yes Safety Risks/Education Teaching Recipient: Patient Teaching Methods: Discussion Response to Teaching: Unable to Return Demonstration Education Topics Provided: Pt educated on purpose of therapy tasks. Pt receptive and verbalized understanding. Time Speech Therapy Time In: 09:00 Speech Therapy Time Out: 09:35 DATE: Apr 08, 2023 Total Billed Time: 35 Billed Treatment Time S/L Álvaro Ackerman Speech Therapy Apr 08, 2023 10:00
--- NOTE | 2023-04-08 10:23 | Occupational Ther Daily Note ---
OT Current Status-Daily Note Subjective Pt sitting in chair upon arrival, alert and cooperative agreed to OT/PT co treat () ADL-Treatment PT was in recliner upon arrival and willing for therapy. Co treat with OT/PT from for family training about the release of pt to home. canal boat captain spoke of current level of ambulation and transfers as well as any safety concerns. it was stated to family to keep RW at home for ambulation. Pt focusing on ambulation, transfers etc and OT focusing on ADL's. all family concerns and questions were addressed. Pt then continued on therapy with OT and ambulated to shower room to practice tub transfer bench that pt has at home. Pt required skilled instruction, so LEGER demonstrated for pt on how to properly use bench. Pt did well after demonstration and verbalized and agreed to use it at home for energy conservation purposes and safety. Pt then ambulated to therapy gym, with ARIANAW, ROSHNI. Pt completed arm bike exercise for 15 mins at 10 fatima with multiple recovery breaks during that time. Pt then completed a fine motor coordination, dexterity activity to focus on finger and hand strengthening required for daily functional activities. Pt then ambulated around ARU focusing on functional ambulation, for endurance required for daily activities. Pt ambulated back to room, sat in chair in room to rest. Pt left sitting up in recliner, all needs met at this time, call light and phone with in reach. Therapy Code Descriptions/Definitions Functional [place] Measure: 0=Not Assessed/NA 4=Minimal Assistance 1=Total Assistance 5=Supervision or Setup 2=Maximal Assistance 6=Modified [place] 3=Moderate Assistance 7=Complete IndependenceSCALE: Activities may be completed with or without assistive devices. 8-Qemorkobnl-tdqqizf completes the activity by him/herself with no assistance from a helper. 5-Set-up or Clean-up Assistance-helper sets up or cleans up; patient completes activity. [place] assists only prior to or following the activity. 4-Supervision or Touching Assistance-helper provides verbal cues and/or touching/steadying and/or contact guard assistance as patient completes a ctivity. Assistance may be provided throughout the activity or intermittently. 3-Partial/Moderate Assistance-helper does LESS THAN HALF the effort. [place] lifts, holds or supports trunk or limbs, but provides less than half the effort. 2-Substantial/Maximal Assistance-helper does MORE THAN HALF the effort. [place] lifts or holds trunk or limbs and provides more than half the effort. 0-Cmqykvuod-dcbams does ALL the effort. Patient does none of the effort to complete the activity. Or, the assistance of 2 or more helpers is required for the patient to complete the activity. If activity was not attempted, code reason: 7-Patient Refused. 9-Not Applicable-not attempted and the patient did not perform the activity before the current illness, exacerbation or injury. 10-Not Attempted due to Environmental Limitations-(lack of equipment, weather restraints, etc.). 88-Not Attempted due to Medical Conditions or Safety Concerns. Education OT Patient Education: Energy conservation, Progress toward Goal/Update tx plan, Purpose of tx/functional activities, Safety issues, Transfer techniques Teaching Recipient: Patient Teaching Methods: Discussion Response to Teaching: Verbalize Understanding OT Short Term Goals Short Term Goals Time Frame: Apr 07, 2023 Eatin Oral hygiene: 6 OT Skilled Nursing Goals Skilled Nursing Goals Acute change in mental status: 0 Inattention: 0 Disorganized thinkin Altered level of consciousness: 0 Oral Hygiene (QC): 6 Toileting Hygiene (QC): 6 Shower/Bathe Self (QC): 5 Upper Body Dressing (QC): 5 Lower Body Dressing (QC): 5 On/Off Footwear (QC): 5 1=Demonstrate adherence to instructed precautions during ADL tasks. 2=Patient will verbalize/demonstrate understanding of assistive devices/modifications for ADL. 3=Patient will improve strength/tolerance for activity to enable patient to perform ADL's. OT Education/Plan Problem List/Assessment Assessment: Decreased Activ Tolerance, Decreased Safety Aware, Decreased UE Strength Discharge Recommendations Plan/Recommendations: Continue POC Treatment Plan/Plan of Care Patient would benefit from OT for education, treatment and training to promote independence in ADL's, mobility, safety and/or upper extremity function for ADL's. Plan of Care: ADL Retraining, Concurrent Therapy, Functional Mobility, UE Funct Exercise/Act Treatment Duration: Apr 03, 2023 Frequency: At least 5 of 7 days/Wk (IRF) Estimated Hrs Per Day: 1.5 hours per day Agreement: Yes Rehab Potential: Good Time Start Time: 10:00 Stop Time: 11:30 DATE: Apr 08, 2023 Total Time Billed (hr/min): 90 Billed Treatment Time 1 visit ADL 1 (20) Ex 4 (55) FA 1 (15) Myrna Medellin COTA Apr 08, 2023 10:23
--- NOTE | 2023-04-08 11:52 | Physical Therapy Daily Note ---
PT Daily Note-Current Subjective PT was in recliner upon arrival and willing for therapy. Co treat with OT/PT from [id number] for family training about the release of pt to home. lpta spoke of current level of ambulation and transfers as well as any safety concerns. it was stated to family to keep RW at home for ambulation. Pt focusing on ambulation, transfers etc and OT focusing on ADL's. all family concerns and questions were addressed. Pain Section J - Health Conditions 1. Rarely or not at all 2. Occasionally 3. Frequently 4. Almost constantly 8. Unable to answer Pain Effect on Sleep: 1 Pain Interference with Therapy: 1 Pain Interference w/Day-to-Day: 1 Mental Status Patient Orientation: Person, Place, Time Transfers SCALE: Activities may be completed with or without assistive devices. 7-Eyqbitldcd-wqhyipm completes the activity by him/herself with no assistance from a helper. 5-Set-up or Clean-up Assistance-helper sets up or cleans up; patient completes activity. [place] assists only prior to or following the activity. 4-Supervision or Touching Assistance-helper provides verbal cues and/or touching/steadying and/or contact guard assistance as patient completes activity. Assistance may be provided throughout the activity or intermittently. 3-Partial/Moderate Assistance-helper does LESS THAN HALF the effort. [place] lifts, holds or supports trunk or limbs, but provides less than half the effort. 2-Substantial/Maximal Assistance-helper does MORE THAN HALF the effort. [place] lifts or holds trunk or limbs and provides more than half the effort. 0-Eisgidnvg-xrxiks does ALL the effort. Patient does none of the effort to complete the activity. Or, the assistance of 2 or more helpers is required for the patient to complete the activity. If activity was not attempted, code reason: 7-Patient Refused. 9-Not Applicable-not attempted and the patient did not perform the activity before the current illness, exacerbation or injury. 10-Not Attempted due to Environmental Limitations-(lack of equipment, weather restraints, etc.). 88-Not Attempted due to Medical Conditions or Safety Concerns. Sit to Stand (QC): 5 Chair/Ilt-ha-Wtjnz Xfer(QC): 4 Toilet Transfer (QC): 4 Car Transfer (QC): 4 Weight Bearing Right Lower Extremity: Right Full Weight Bearing Left Lower Extremity: Left Full Weight Bearing NWB L UE with sling in place Gait Training Walk 10 feet (QC): 4 Walk 50 ft with 2 Turns(QC): 4 Walk 150 ft (QC): 4 Stair Training 1 Step (curb) (QC): 4 4 Steps (QC): 4 Treatments Pt was able to preform car transfers with SBA with VC for correct sequencing for safety. pt was able to ambulate 4 stairs ascend and descend. with CGA and VC for safety. pt is able to ambulate 70ft with co CO pain this day and no Knee buckling. Assessment Current Status: Good Progress PT [facility] Goals Technical Service Specialist Goals PT [facility] Goals Time Frame: Apr 16, 2023 Roll Left & Right (QC): 6 Sit to Lying (QC): 6 Lying-Sitting on Side/Bed(QC): 6 Sit to Stand (QC): 6 Chair/Jdl-iw-Kuxtq Xfer(QC): 6 Toilet Transfer (QC): 6 Car Transfer (QC): 6 Does the Patient Walk: Yes Walk 10 feet (QC): 4 Walk 50ft with 2 Turns (QC): 4 Walk 150 ft (QC): 4 Walking 10ft on Uneven Surface: 4 1 Step (curb) (QC): 4 4 Steps (QC): 4 12 Steps (QC): 4 Picking up an Object (QC): 6 Does the Pt use WC or Scooter?: No Wheel 50 feet with 2 turns (QC: 9 Type: N/A Wheel 150 feet: 9 Type: N/A PT Plan Treatment/Plan Treatment Plan: Continue Plan of Care Treatment Plan: Functional Strength, Group Therapy, Safety, Therapeutic Exercise Treatment Duration: Apr 03, 2023 Frequency: Modified Program (IRF) Estimated Hrs Per Day: 2 hours per day Patient and/or Family Agrees t: Yes Time Time In: 0935 Time Out: 1030 DATE: Apr 08, 2023 Total Billed Treatment Time: 55 Total Billed Treatment 1 Gt FA x 3 Co treat for 30 min with OT from [id number] Maggie Deleon ATHLETIC MONITOR Apr 08, 2023 11:52
[2023-04-08] MEDS: HYDROcodone/ACETAMINOPHEN 5 MG/325 MG TABLET PO PRN (11:57)
--- NOTE | 2023-04-08 13:31 | Physical Therapy Daily Note ---
PT Daily Note-Current Subjective PT in recliner upon arrival. pt reports no pain before or after therapy but during an "ACHE" on posterior side of right knee. per nursing clarification there are no precautions from Dr Kelly or Dr De Oliveira after pace maker was placed. and per Dr Chris WBAT sling for comfort for torn rotator cuff. pt was then switched via therapist from natacha walker to RW for more effective and safer ambulation. pt stated she felt safer with the RW. PT was left in room in recliner with all needs met and call light Pain Section J - Health Conditions 1. Rarely or not at all 2. Occasionally 3. Frequently 4. Almost constantly 8. Unable to answer Pain Effect on Sleep: 1 Pain Interference with Therapy: 1 Pain Interference w/Day-to-Day: 1 Mental Status Patient Orientation: Person, Place, Time, Situation Transfers SCALE: Activities may be completed with or without assistive devices. 7-Vmcvbarhnf-bavrqnu completes the activity by him/herself with no assistance from a helper. 5-Set-up or Clean-up Assistance-helper sets up or cleans up; patient completes activity. [place] assists only prior to or following the activity. 4-Supervision or Touching Assistance-helper provides verbal cues and/or joe peter/steadying and/or contact guard assistance as patient completes activity. Assistance may be provided throughout the activity or intermittently. 3-Partial/Moderate Assistance-helper does LESS THAN HALF the effort. [place] lifts, holds or supports trunk or limbs, but provides less than half the effort. 2-Substantial/Maximal Assistance-helper does MORE THAN HALF the effort. [place] lifts or holds trunk or limbs and provides more than half the effort. 9-Eivvucosb-fgarbc does ALL the effort. Patient does none of the effort to complete the activity. Or, the assistance of 2 or more helpers is required for the patient to complete the activity. If activity was not attempted, code reason: 7-Patient Refused. 9-Not Applicable-not attempted and the patient did not perform the activity before the current illness, exacerbation or injury. 10-Not Attempted due to Environmental Limitations-(lack of equipment, weather restraints, etc.). 88-Not Attempted due to Medical Conditions or Safety Concerns. Weight Bearing Right Lower Extremity: Right Full Weight Bearing Left Lower Extremity: Left Full Weight Bearing NWB L UE with sling in place Treatments Pt is able to ambulate 46ft then 83 ft for a total of 129 ft. 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 pt had one slight LOB but was able to self correct. pt was given approval to use RW and pt was given and educated on RW safety and sequencing. pt was janene tot ambualte 100ft with no LOB and correct usage with 15% VC this day. pt was able to execute sitting ther-ex in all planes of motion for 2 sets of 15 each. PT Skilled Nursing Goals Skilled Nursing Goals PT Skilled Nursing Goals Time Frame: Apr 16, 2023 Roll Left & Right (QC): 6 Sit to Lying (QC): 6 Lying-Sitting on Side/Bed(QC): 6 Sit to Stand (QC): 6 Chair/Zlv-mo-Kivln Xfer(QC): 6 Toilet Transfer (QC): 6 Car Transfer (QC): 6 Does the Patient Walk: Yes Walk 10 feet (QC): 4 Walk 50ft with 2 Turns (QC): 4 Walk 150 ft (QC): 4 Walking 10ft on Uneven Surface: 4 1 Step (curb) (QC): 4 4 Steps (QC): 4 12 Steps (QC): 4 Picking up an Object (QC): 6 Does the Pt use WC or Scooter?: No Wheel 50 feet with 2 turns (QC: 9 Type: N/A Wheel 150 feet: 9 Type: N/A PT Plan Treatment/Plan Treatment Plan: Continue Plan of Care Treatment Plan: Functional Strength, Group Therapy, Safety, Therapeutic Exercise Treatment Duration: Apr 03, 2023 Frequency: Modified Program (IRF) Estimated Hrs Per Day: 2 hours per day Patient and/or Family Agrees t: Yes Time Time In: 1015 Time Out: 1115 DATE: May 05, 2023 Total Billed Treatment Time: 60 Total Billed Treatment 1 GT x 2 EX x 2 Maggie Deleon HOME SECURITY PROFESSIONAL Apr 08, 2023 13:31
[2023-04-08] MEDS ORDERED: CELE-63 PO (14:13)
[2023-04-08 19:35] VITALS: BP 129/81
[2023-04-08] MEDS: MELATONIN 3 MG TABLET PO SCH (20:26)
[2023-04-08] MEDS: FAMOTIDINE 20 MG TABLET PO SCH (20:27)
--- NOTE | 2023-04-09 05:54 | PM&R Progress Note ---
Subjective HPI/CC On Admission Date Seen by Provider: Apr 09, 2023 Time Seen by Provider: 09:00 Subjective/Events-last exam 04/09/2023: Set for DC tomorrow No falls No pain reported Xarelto sent into pharmacy 04/08/2023: Patient doing really well No pain is reported Checking meds and labs Family training today 04/07/2023: Much improved overall Tearful at times Dementia is present no significant changes Labs normal 04/06/2023: Patient doing really well No new issues Drinking and eating well Ambulating well 04/05/2023: No issues Spouse at bedside visiting Improved overall Dr Jin answered pacemaker questions DVT Right leg likely occurred during transition from [place] when Lovenox had been held for pacemaker placement and OAC was in midst of restarting the day her right posterior knee pain occurred and USG ordered. Xarelto BID ordered for 3 weeks then once daily 04/04/2023: No major issues No syncope today but had an episode late after noon yesterday Appears much improved Slow recovery 04/03/2023: Much improved overall No pain Participation is good with therapy No falls Reviewed labs Review of Systems General: Fatigue, Malaise Objective Exam Vital Signs Vital Signs Date Time Temp Pulse Resp B/P (MAP) Pulse Ox O2 Delivery O2 Flow Rate FiO2 04/09/23 09:55 93 Room Air 04/09/23 07:37 35.3 67 18 131/63 (85) Capillary Refill : General Appearance: No Apparent Distress, WD/WN, Chronically ill, Obese HEENT: PERRL/EOMI, Normal ENT Inspection, Pharynx Normal Neck: Full Range of Motion, Normal Inspection, Non Tender, Supple, Carotid Bruit Respiratory: Chest Non Tender, Lungs Clear, Normal Breath Sounds, No Accessory Muscle Use, No Respiratory Distress Cardiovascular: Regular Rate, Rhythm, No Edema, No Gallop, No JVD, No Murmur, Normal Peripheral Pulses Gastrointestinal: Normal Bowel Sounds, No Organomegaly, No Pulsatile Mass, Non Tender, Soft Back: Normal Inspection, No CVA Tenderness, No Vertebral Tenderness Extremity: Normal Capillary Refill, Normal Inspection, Normal Range of Motion (Except left arm in sling), Non Tender, No Calf Tenderness, No Pedal Edema Neurologic/Psychiatric: Alert, Oriented x3, Normal Mood/Affect, laborer hoisting II-XII Norm as Tested, Abnormal Gait, Depressed Affect, Motor Weakness ( generalized 4/5) Skin: Normal Color, Warm/Dry Lymphatic: No Adenopathy Results/Procedures Lab Patient resulted labs reviewed. FIM Transfers Therapy Code Descriptions/Definitions Functional [place] Measure: 0=Not Assessed/NA 4=Minimal Assistance 1=Total Assistance 5=Supervision or Setup 2=Maximal Assistance 6=Modified [place] 3=Moderate Assistance 7=Complete IndependenceSCALE: Activities may be completed with or without assistive devices. 8-Ufoqixydqh-ggteura completes the activity by him/herself with no assistance from a helper. 5-Set-up or Clean-up Assistance-helper sets up or cleans up; patient completes activity. [place] assists only prior to or following the activity. 4-Supervision or Touching Assistance-helper provides verbal cues and/or touching/steadying and/or contact guard assistance as patient completes activity. Assistance may be provided throughout the activity or intermittently. 3-Partial/Moderate Assistance-helper does LESS THAN HALF the effort. [place] lifts, holds or supports trunk or limbs, but provides less than half the effort. 2-Substantial/Maximal Assistance-helper does MORE THAN HALF the effort. [place] lifts or holds trunk or limbs and provides more than half the effort. 6-Sndjfgcje-rjxlel does ALL the effort. Patient does none of the effort to complete the activity. Or, the assistance of 2 or more helpers is required for the patient to complete the activity. If activity was not attempted, code reason: 7-Patient Refused. 9-Not Applicable-not attempted and the patient did not perform the activity before the current illness, exacerbation or injury. 10-Not Attempted due to Environmental Limitations-(lack of equipment, weather restraints, etc.). 88-Not Attempted due to Medical Conditions or Safety Concerns. Roll Left to Right (QC): 3 (Min A ) Sit to Lying (QC): 3 (Min A ) Sit to Stand (QC): 5 Chair/Woa-mm-Dytiy Xfer(QC): 4 Car Transfer (QC): 4 Gait Training Does the Patient Walk?: Yes Distance: 75 ft, 50 ft, 200 ft Walk 10 feet (QC): 4 Walk 50 ft with 2 Turns(QC): 4 Walk 150 ft (QC): 4 Walking 10ft/uneven surface-QC: 88 Gait Persons Needed: 1 Gait Assistive Device: Walker Standard Wheelchair Training Does the Pt Use a Wheelchair?: No Wheel 50 ft with 2 turns (QC): 9 Wheel 150 ft (QC): 9 Type of Wheelchair: N/A Stair Training Stair Training: Handrails/: 2 handrails #of Steps: 4 1 Step (curb) (QC): 4 4 Steps (QC): 4 12 Steps (QC): 88 Stairs: Pattern: Step to Balance Picking up an Object (QC): 3 (Min A with utilization manager ) ADL-Treatment Eating (QC): 6 Oral Hygiene (QC): 5 (Set up at sink.) Shower/Bathe Self (QC): 4 Upper Body Dressing (QC): 5 Lower Body Dressing (QC): 5 On/Off Footwear (QC): 5 Toileting Hygiene (QC): 4 Toilet Transfer (QC): 4 (CGA) Assessment/Plan Assessment and Plan Assess & Plan/Chief Complaint 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 on 04/01/2023 Encephalopathy from UTI much improved Fall Left rotator cuff injury remains in sling for comfort now sling DC AF noted during last hospital stay Hypertension Dementia Depression Post op DVT right leg dx 04/05/23 likely occurred during OSH hospital course when OAC Eliquis was held during wait for pacemaker given USG performed after arrival to [facility] Plan: Aggressive PT and OT Ultimately return back home to spouse Decrease ampoule filler burden for daughter 04/03/2023: Inquire with ortho who consulted last admit before pacemaker on her weight bearing status 04/04/2023: Heating pad on right leg 04/05/2023: OAC 04/06/2023: Supportive care Monitor closely 04/07/2023: Monitor closely 04/08/2023: Supportive care Monitor closely 04/09/2023: Supportive care DC tomorrow (1) Myopathy (2) Complete heart block (3) Encephalopathy (4) S/P placement of leadless cardiac pacemaker (5) Injury of left rotator cuff JUSTIN KOWALSKI DO Apr 09, 2023 05:54
[2023-04-09] MEDS: RIVAROXABAN 15 MG TABLET (XARELTO) PO SCH ×2 (06:30→19:55)
[2023-04-09] MEDS: MULTIVIT W/MINERALS TAB (THERAGRAN M) PO SCH (06:30)
[2023-04-09] MEDS: LEVOTHYROXINE 100 MCG (LEVOTHROID) TAB PO SCH (06:30)
--- NOTE | 2023-04-09 07:11 | Occupational Ther Daily Note ---
OT Current Status-Daily Note Subjective Pt alert, sitting in recliner. Pt agrees to therapy. No c/o pain at this time, only fatigue. QC's gathered this date. Mental Status/Objective Patient Orientation: Person, Place, Time, Situation ADL-Treatment Pt agrees to shower. Pt utilizes FWW for safety during ambulation and transfers. Independent with toileting using grabbars and FWW. Using shower bench, hand held shower and grabbars pt is independent with shower. Pt requires set up for all dressing. Pt working on retrieving items using FWW, continues to need supervision due to safety awareness and slight cognitive difficulties with problem solving. Pt is able to stand at sink using counter to balance self to complete oral care independently. Pt independent with eating. Therapy Code Descriptions/Definitions Functional [place] Measure: 0=Not Assessed/NA 4=Minimal Assistance 1=Total Assistance 5=Supervision or Setup 2=Maximal Assistance 6=Modified [place] 3=Moderate Assistance 7=Complete IndependenceSCALE: Activities may be completed with or without assistive devices. 1-Tyxezokeoa-lxgksbz completes the activity by him/herself with no assistance from a helper. 5-Set-up or Clean-up Assistance-helper sets up or cleans up; patient completes activity. [place] assists only prior to or following the activity. 4-Supervision or Touching Assistance-helper provides verbal cues and/or touching/steadying and/or contact guard assistance as patient completes activity. Assistance may be provided throughout the activity or intermittently. 3-Partial/Moderate Assistance-helper does LESS THAN HALF the effort. [place] lifts, holds or supports trunk or limbs, but provides less than half the effort. 2-Substantial/Maximal Assistance-helper does MORE THAN HALF the effort. [place] lifts or holds trunk or limbs and provides more than half the effort. 1-Lvwprtijs-auzsxd does ALL the effort. Patient does none of the effort to complete the activity. Or, the assistance of 2 or more helpers is required for the patient to complete the activity. If activity was not attempted, code reason: 7-Patient Refused. 9-Not Applicable-not attempted and the patient did not perform the activity before the current illness, exacerbation or injury. 10-Not Attempted due to Environmental Limitations-(lack of equipment, weather restraints, etc.). 88-Not Attempted due to Medical Conditions or Safety Concerns. Eating (QC): 6 Oral Hygiene (QC): 6 Shower/Bathe Self (QC): 6 Upper Body Dressing (QC): 5 Lower Body Dressing (QC): 5 On/Off Footwear: 5 Toileting Hygiene (QC): 6 Toilet Transfer (QC): 6 Other Treatment Pt completed 2 theraband exercises with skilled instruction for correct technique and modifications to decrease strain on L shldr. Pt completed each exercise by alternating L then R UE without difficulty. Pt able to tolerate 10 reps shldr horizontal abd/add and 8 reps tricep extensions. After session, pt sitting in recliner with call light/phone in reach. All needs met in room. Education OT Patient Education: Exercise program, Modified ADL techniques, Safety issues Teaching Recipient: Patient, Family Teaching Methods: Demonstration, Discussion Response to Teaching: Verbalize Understanding, Return Demonstration, Reinforcement Needed BIMS CAM BIMS Expression of Ideas and Wants: Without Difficulty Understanding Verbal Content: Understands Brief Interview/Mental Status: Yes IRF NAVID BIMS: IRF NAVID BIMS Response (Comments) Value Repitition of Three Words Three 3 Recalls Socks Yes, No Cue Required 2 Recalls Blue Yes, No Cue Required 2 Recalls Bed Yes, No Cue Required 2 Year Correct 3 Month Accurate Within 5 Days 2 Day Correct 1 Total 15 Patient Normally Able to Recal: Current Session, Location of own room, That he/she in a hsp Should Staff Asses. Mental St.: No CAM Mental Status Change/Baseline: 0 Inattention: 0 Disorganized thinkin Altered level of consciousness: 0 OT Short Term Goals Short Term Goals Time Frame: Apr 07, 2023 Eatin Oral hygiene: 6 OT Intermediate Goals Intermediate Goals Acute change in mental status: 0 Inattention: 0 Disorganized thinkin Altered level of consciousness: 0 Oral Hygiene (QC): 6 (met) Toileting Hygiene (QC): 6 (met) Shower/Bathe Self (QC): 5 (met) Upper Body Dressing (QC): 5 (met) Lower Body Dressing (QC): 5 (met) On/Off Footwear (QC): 5 (met) 1=Demonstrate adherence to instructed precautions during ADL tasks. 2=Patient will verbalize/demonstrate understanding of assistive devices/modifications for ADL. 3=Patient will improve strength/tolerance for activity to enable patient to perform ADL's. OT Education/Plan Problem List/Assessment Assessment: Decreased Activ Tolerance, Decreased Safety Aware, Decreased UE Strength, Impaired Funct Balance, Impaired Self-Care Skills Discharge Recommendations Plan/Recommendations: Continue POC Treatment Plan/Plan of Care Patient would benefit from OT for education, treatment and training to promote independence in ADL's, mobility, safety and/or upper extremity function for ADL's. Plan of Care: ADL Retraining, Concurrent Therapy, Functional Mobility, UE Funct Exercise/Act Treatment Duration: Apr 03, 2023 Frequency: At least 5 of 7 days/Wk (IRF) Estimated Hrs Per Day: 1.5 hours per day Agreement: Yes Rehab Potential: Good Time Start Time: 06:45 Stop Time: 08:00 DATE: Apr 09, 2023 Total Time Billed (hr/min): 75 Billed Treatment Time 1 visit-ADL4(60 min) EX 1 (15 min) ZARIA COLLADO Apr 09, 2023 07:11
[2023-04-09 07:37] VITALS: BP 131/63
[2023-04-09] MEDS: polyethylene glycoL POWDER 17 GM (MIRALAX) PACK PO SCH ×2 (08:32→19:58)
[2023-04-09] MEDS: DOCUSATE SODIUM 100 MG CAPSULE PO SCH ×2 (08:33→19:58)
[2023-04-09] MEDS: GABAPENTIN 300 MG (NEURONTIN) CAP PO SCH ×2 (08:33→19:57)
[2023-04-09] MEDS: OMEGA 3 (FISH OIL) 1000 MG CAP PO SCH (08:33)
[2023-04-09] MEDS: SENNA W/DOCUSATE (SENOKOT S) TABLET PO SCH ×2 (08:33→19:57)
[2023-04-09] MEDS: ASPIRIN enteric coated 81MG TABLET PO SCH (08:33)
[2023-04-09] MEDS: ROSUVASTATIN 5 MG (CRESTOR) TABLET PO SCH (08:34)
[2023-04-09] MEDS: MICONAZOLE 2% POWDER (DESENEX AF) 90 GM TOP SCH ×2 (08:34→19:58)
[2023-04-09] MEDS: DULoxetine 20 MG CAPSULE PO SCH (08:34)
--- NOTE | 2023-04-09 09:27 | Cardiology Progress Note ---
Subjective Date Seen by Provider: Apr 09, 2023 Time Seen by Provider: 08:35 Subjective/Events-last exam Patient is sitting up in chair, no new complaints. Denies any dizziness. Objective-Cardiology Exam Last Set of Vital Signs Vital Signs 04/10/23 07:34 Temp 36.4 Pulse 65 Resp 16 B/P (MAP) 123/59 (80) Pulse Ox 93 O2 Delivery Room Air I&O Intake and Output 04/10/23 00:00 Intake Total 2480 ml Balance 2480 ml Intake Oral 2480 ml # Voids 8 General: Alert, Oriented X3, Cooperative HEENT: Atraumatic, PERRLA Neck: Supple, No JVD, No Thyromegaly Lungs: Clear to Auscultation, Normal Air Movement Heart: Regular Rate, Normal S1, Normal S2, No Murmurs Abdomen: Normal Bowel Sounds, Soft, No Tenderness, No Hepatosplenomegaly, No Masses Extremities: No Clubbing, No Cyanosis, No Edema, Normal Pulses, No Tenderness/Swelling Skin: No Rashes, No Breakdown, No Significant Lesion Neuro: Normal Gait, Normal Speech, Strength at 5/5 X4 Ext, Normal Tone, Sensation Intact Psych/Mental Status: Mental Status NL, Mood NL A/P-Cardiology Admission Diagnosis UTI High grade AV block, s/p leadless PPM HTN LBBB Assessment/Plan Generalized fatigue and weakness, patient reporting improvement. Status post complex UTI Currently admitted to acute rehab. High-grade AV block, intermittent complete heart block Questionable transient episode of atrial fibrillation with bradycardia. Could be artifact Underwent leadless pacemaker placement with Dr Sam Device is in place, Twelve-lead EKG done on April 03, 2023 showing sinus rhythm with ventricular paced rhythm. DVT noted in the right popliteal vein on April 05, 2023 US Started on Xarelto 15 mg twice daily. History of hypertension, history of orthostatic hypotension, vasodepressor syncope. Currently blood pressure is stable. History of chest pain nonspecific etiology, seen in the emergency room on June 04, 2022. EKG showed left bundle branch block. Lexiscan stress test was done on July 10, 2022 with baseline left bundle branch block and frequent atrial premature contractions. She has small left ventricular size affecting the quality of the images, stress score is 6, there is questionable minimal ischemia of the inferior septum but no significant reversible ischemia noted, SDS is 2, ejection fraction 74% 2D echo was done in February 2021 showing normal LV size, EF 55 to 65%, PA pressure 30 mmHg History of syncope, treated as vasodepressor syncope, had a tilt table test in 2005. No further syncopal episodes reported. CT of the head without contrast done on February 19, 2021 showing no acute abnormality. Continue to monitor Left bundle branch block, the record from 2005 indicate the presence of left bundle branch block. Continue to monitor. 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 Asymptomatic continue to monitor, will plan to repeat echo after next f/u appt. Hyperlipidemia, intolerant to Lipitor secondary to myalgias. Maintained on Crestor, Lipid profile was done on September 20, 2021 showing total cholesterol 160, HDL 51, triglyceride 127, LDL 84. Continue to monitor Hypothyroidism, followed and managed by primary care physician History of recent back surgery Moderate carotid stenosis on the left, mild on the right, ultrasound was done in June 2022. Continue to monitor Supervisory-Addendum Brief Supervisory Addendum Participated in pt care: history, MDM, physical Personally performed: exam, history, MDM Care discussed with: SIMA Results interpretation: Verified all documentation Notes: Late entry for April 09, 2023 Patient was seen and evaluated with Ciaran, examination performed, management plan was discussed, agree with the current scribed note, I made few changes to the note using Italic font Patient was seen at bedside, feeling well. No new complain Continue on current medication CIARAN COLON Apr 09, 2023 09:27 MARSHALL LARSEN MD Apr 10, 2023 08:18
[2023-04-09] MEDS: COQ10 100 MG PO SCH (10:15)
[2023-04-09] MEDS: PREVAGEN PO SCH (10:16)
[2023-04-09] MEDS ORDERED: RIVA1TAB PO (11:37)
[2023-04-09] MEDS ORDERED: RIVA20TA2 PO (11:37)
--- NOTE | 2023-04-09 13:40 | Physical Therapy Daily Note ---
PT Daily Note-Current Subjective Pt was in recliner and willing for therapy with No CO pain only "weak" behind the right knee. pt was left in recliner at the end of therapy with call light and all needs met. Pain Section J - Health Conditions 1. Rarely or not at all 2. Occasionally 3. Frequently 4. Almost constantly 8. Unable to answer Pain Effect on Sleep: 1 Pain Interference with Therapy: 1 Pain Interference w/Day-to-Day: 1 Mental Status Patient Orientation: Person, Place, Time Transfers SCALE: Activities may be completed with or without assistive devices. 4-Qksdokdpxl-rzgzjba completes the activity by him/herself with no assistance from a helper. 5-Set-up or Clean-up Assistance-helper sets up or cleans up; patient completes activity. [place] assists only prior to or following the activity. 4-Supervision or Touching Assistance-helper provides verbal cues and/or touching/steadying and/or contact guard assistance as patient completes activity. Assistance may be provided throughout the activity or intermittently. 3-Partial/Moderate Assistance-helper does LESS THAN HALF the effort. [place] lifts, holds or supports trunk or limbs, but provides less than half the effort. 2-Substantial/Maximal Assistance-helper does MORE THAN HALF the effort. [place] lifts or holds trunk or limbs and provides more than half the effort. 3-Tvrblvicc-xjuvso does ALL the effort. Patient does none of the effort to complete the activity. Or, the assistance of 2 or more helpers is required for the patient to complete the activity. If activity was not attempted, code reason: 7-Patient Refused. 9-Not Applicable-not attempted and the patient did not perform the activity before the current illness, exacerbation or injury. 10-Not Attempted due to Environmental Limitations-(lack of equipment, weather restraints, etc.). 88-Not Attempted due to Medical Conditions or Safety Concerns. Roll Left & Right (QC): 6 Sit to Lying (QC): 6 Lying to Sitting/Side of Bed(Q: 6 Sit to Stand (QC): 5 Chair/Uuj-ju-Jchss Xfer(QC): 4 Toilet Transfer (QC): 4 Car Transfer (QC): 4 Weight Bearing Right Lower Extremity: Right Full Weight Bearing Left Lower Extremity: Left Full Weight Bearing NWB L UE with sling in place Gait Training Walk 10 feet (QC): 4 Walk 50 ft with 2 Turns(QC): 4 Walk 150 ft (QC): 4 Walking 10ft/uneven surface-QC: 4 Wheelchair Training Wheel 50 ft with 2 turns (QC): 9 Wheel 150 ft (QC): 9 Stair Training 1 Step (curb) (QC): 1 4 Steps (QC): 4 12 Steps (QC): 9 Balance Picking up an Object (QC): 5 Treatments PT preformed QC measure with CGA for car and stairs and uneven surfaces. independent with bed mobility. pt does requires VC for safety and sequencing PT Chcf Goals Iron Setter Goals PT Iron Setter Goals Time Frame: Apr 16, 2023 Roll Left & Right (QC): 6 Sit to Lying (QC): 6 Lying-Sitting on Side/Bed(QC): 6 Sit to Stand (QC): 6 Chair/Uhs-al-Hnbzr Xfer(QC): 6 Toilet Transfer (QC): 6 Car Transfer (QC): 6 Does the Patient Walk: Yes Walk 10 feet (QC): 4 Walk 50ft with 2 Turns (QC): 4 Walk 150 ft (QC): 4 Walking 10ft on Uneven Surface: 4 1 Step (curb) (QC): 4 4 Steps (QC): 4 12 Steps (QC): 4 Picking up an Object (QC): 6 Does the Pt use WC or Scooter?: No Wheel 50 feet with 2 turns (QC: 9 Type: N/A Wheel 150 feet: 9 Type: N/A PT Plan Treatment/Plan Treatment Plan: Continue Plan of Care Treatment Plan: Functional Strength, Group Therapy, Safety, Therapeutic Exercise Treatment Duration: Apr 03, 2023 Frequency: Modified Program (IRF) Estimated Hrs Per Day: 2 hours per day Patient and/or Family Agrees t: Yes Time Time In: 1100 Time Out: 1200 DATE: Apr 09, 2023 Total Billed Treatment Time: 60 Total Billed Treatment 1 FA 2 GT 2 Maggie Deleon DIRECTOR OF SEARCH ENGINE OPTIMIZATION Apr 09, 2023 13:40
--- NOTE | 2023-04-09 13:48 | Physical Therapy Daily Note ---
PT Daily Note-Current Subjective PT was in recliner upon arrival and willing for therapy. pt reports no pain before during or after therapy. pt was left in bed with call light and all needs met after treatment. Pain Section J - Health Conditions 1. Rarely or not at all 2. Occasionally 3. Frequently 4. Almost constantly 8. Unable to answer Pain Effect on Sleep: 1 Pain Interference with Therapy: 1 Pain Interference w/Day-to-Day: 1 Mental Status Patient Orientation: Person, Place Transfers SCALE: Activities may be completed with or without assistive devices. 9-Wpsdmxrovr-ardbbgd completes the activity by him/herself with no assistance from a helper. 5-Set-up or Clean-up Assistance-helper sets up or cleans up; patient completes activity. Imperial assists only prior to or following the activity. 4-Supervision or Touching Assistance-helper provides verbal cues and/or touching/steadying and/or contact guard assistance as patient completes activity. Assistance may be provided throughout the activity or intermittently. 3-Partial/Moderate Assistance-helper does LESS THAN HALF the effort. Imperial lifts, holds or supports trunk or limbs, but provides less than half the effort. 2-Substantial/Maximal Assistance-helper does MORE THAN HALF the effort. Imperial lifts or holds trunk or limbs and provides more than half the effort. 3-Hbstwezfv-xvwfwf does ALL the effort. Patient does none of the effort to complete the activity. Or, the assistance of 2 or more helpers is required for the patient to complete the activity. If activity was not attempted, code reason: 7-Patient Refused. 9-Not Applicable-not attempted and the patient did not perform the activity before the current illness, exacerbation or injury. 10-Not Attempted due to Environmental Limitations-(lack of equipment, weather restraints, etc.). 88-Not Attempted due to Medical Conditions or Safety Concerns. Weight Bearing Right Lower Extremity: Right Full Weight Bearing Left Lower Extremity: Left Full Weight Bearing NWB L UE with sling in place Treatments Pt preformed sitting ther-ex in all planes of motion available for 2 sets of 15 with rest in between. pt ambulated to and from bathroom to recliner with SBA and CGA for toilet transfers Assessment Current Status: Good Progress PT Custodial Goals Custodial Goals PT Custodial Goals Time Frame: Apr 16, 2023 Roll Left & Right (QC): 6 Sit to Lying (QC): 6 Lying-Sitting on Side/Bed(QC): 6 Sit to Stand (QC): 6 Chair/Wst-mc-Fndrj Xfer(QC): 6 Toilet Transfer (QC): 6 Car Transfer (QC): 6 Does the Patient Walk: Yes Walk 10 feet (QC): 4 Walk 50ft with 2 Turns (QC): 4 Walk 150 ft (QC): 4 Walking 10ft on Uneven Surface: 4 1 Step (curb) (QC): 4 4 Steps (QC): 4 12 Steps (QC): 4 Picking up an Object (QC): 6 Does the Pt use WC or Scooter?: No Wheel 50 feet with 2 turns (QC: 9 Type: N/A Wheel 150 feet: 9 Type: N/A PT Plan Treatment/Plan Treatment Plan: Continue Plan of Care Treatment Plan: Functional Strength, Group Therapy, Safety, Therapeutic Exercise Treatment Duration: Apr 03, 2023 Frequency: Modified Program (IRF) Estimated Hrs Per Day: 2 hours per day Patient and/or Family Agrees t: Yes Time Time In: 1315 Time Out: 1330 DATE: Apr 09, 2023 Total Billed Treatment Time: 15 Total Billed Treatment 1 ex Maggie Deleon CLINICAL ASSISTANT Apr 09, 2023 13:48
[2023-04-09 19:26] VITALS: BP 115/55
[2023-04-09] MEDS: MELATONIN 3 MG TABLET PO SCH (19:57)
[2023-04-09] MEDS: FAMOTIDINE 20 MG TABLET PO SCH (19:57)
[2023-04-09] MEDS ORDERED: MTP25TSR PO (21:59)
[2023-04-09] MEDS ORDERED: ROSU5TAB13 PO (21:59)
[2023-04-09] MEDS ORDERED: ASPI-1238 PO (21:59)
[2023-04-09] MEDS ORDERED: EZET10TA49 PO (21:59)
--- NOTE | 2023-04-09 22:00 | D/C HH Face to Face Order ---
D/C Face to Face Orders Reconcile Patient Problems Problems Reviewed?: Yes Instructions for Patient Via [facility], Patient Instructions/FollowUp: PCP as scheduled Physician to follow Patient: PCP Discharge Diet for Home: No Restrictions Patient Problems: Pacemaker Confusion Patient Data-Allergies,Ht & Wt Patient Allergies: Coded Allergies: vancomycin (Verified Allergy, Intermediate, Rash, 04/02/23) Cephalosporins (Verified Allergy, Unknown, 06/21/22) Iodinated Contrast Media (Verified Allergy, Unknown, 07/23/19) FROM UNCODED ALLERGY LIST ciprofloxacin (Verified Allergy, Unknown, 03/27/23) iodine (Verified Allergy, Unknown, 01/20/19) morphine (Verified Allergy, Unknown, 01/20/19) oxycodone (Verified Allergy, Unknown, 07/23/19) sulfamethoxazole (Verified Allergy, Unknown, 03/27/23) trimethoprim (Verified Allergy, Unknown, 03/27/23) Height (Feet): 5 Height (Inches): 4.00 Weight (Pounds): 172 Weight (Ounces): 0.0 Home Health Need/Face to Face Date of Face to Face: Apr 09, 2023 Clinical Findings: Generalized weakness and fatigue, Muscle weakness I have seen Pt dwrk-be-ozal: Yes Discharged To: Home Diagnosis/Conditions: Pacemaker Patient is Homebound due to: Muscle weakness Homebound Status Due to the above stated illness, injury or surgical procedure (medical condition or diagnosis) and associated clinical findings, the patient is homebound because of his/her inability to leave home except with aid of a supportive device and/or person AND leaving the home requires a considerable and taxing effort or is medically contraindicated. Pt req the following assistanc: [facility] Nursing Orders Home Health Services Order: Nursing Services, Hotbed Operator-Evaluate & Treat, Physical Therapy-Evaluate & Treat Certify Stmt I certify that this patient is under my care and that I, a nurse practitioner or a physician; a human resources executive assistant working with me, had a face to face encounter that - meets the physician face to face encounter requirements with this patient as dated. JUSTIN KOWALSKI DO Apr 09, 2023 22:00
[2023-04-09] MEDS ORDERED: MICO90PO TOP (22:01)
[2023-04-10] MEDS: RIVAROXABAN 15 MG TABLET (XARELTO) PO SCH (06:23)
[2023-04-10] MEDS: LEVOTHYROXINE 100 MCG (LEVOTHROID) TAB PO SCH (06:23)
[2023-04-10] MEDS: MULTIVIT W/MINERALS TAB (THERAGRAN M) PO SCH (06:23)
[2023-04-10 07:34] VITALS: BP 123/59
--- NOTE | 2023-04-10 08:09 | Cardiology Progress Note ---
Subjective Date Seen by Provider: Apr 10, 2023 Time Seen by Provider: 08:08 Subjective/Events-last exam Patient is sitting up in bed, no new complaints. Denies any chest pain or dy spnea. Denies any dizziness. Objective-Cardiology Exam Last Set of Vital Signs Vital Signs 04/10/23 07:34 Temp 36.4 Pulse 65 Resp 16 B/P (MAP) 123/59 (80) Pulse Ox 93 O2 Delivery Room Air I&O Intake and Output 04/10/23 00:00 Intake Total 2480 ml Balance 2480 ml Intake Oral 2480 ml # Voids 8 General: Alert, Oriented X3, Cooperative HEENT: Atraumatic, PERRLA Neck: Supple, No JVD, No Thyromegaly Lungs: Clear to Auscultation, Normal Air Movement Heart: Regular Rate, Normal S1, Normal S2, No Murmurs Abdomen: Normal Bowel Sounds, Soft, No Tenderness, No Hepatosplenomegaly, No Masses Extremities: No Clubbing, No Cyanosis, No Edema, Normal Pulses, No Tenderness/Swelling Skin: No Rashes, No Breakdown, No Significant Lesion Neuro: Normal Gait, Normal Speech, Strength at 5/5 X4 Ext, Normal Tone, Sensati on Intact Psych/Mental Status: Mental Status NL, Mood NL A/P-Cardiology Admission Diagnosis UTI High grade AV block, s/p leadless PPM HTN LBBB Assessment/Plan Generalized fatigue and weakness, patient reporting improvement. Status post complex UTI Currently admitted to acute rehab. High-grade AV block, intermittent complete heart block Questionable transient episode of atrial fibrillation with bradycardia. Could be artifact Underwent leadless pacemaker placement with Dr Sam Device is in place, Twelve-lead EKG done on April 03, 2023 showing sinus rhythm with ventricular paced rhythm. DVT noted in the right popliteal vein on April 05, 2023 US Started on Xarelto 15 mg twice daily. History of hypertension, history of orthostatic hypotension, vasodepressor syncope. Currently blood pressure is stable. History of chest pain nonspecific etiology, seen in the emergency room on June 04, 2022. EKG showed left bundle branch block. Lexiscan stress test was done on July 10, 2022 with baseline left bundle branch block and frequent atrial premature contractions. She has small left ventricular size affecting the quality of the images, stress score is 6, there is questionable minimal ischemia of the inferior septum but no significant reversible ischemia noted, SDS is 2, ejection fraction 74% 2D echo was done in February 2021 showing normal LV size, EF 55 to 65%, PA pressure 30 mmHg History of syncope, treated as vasodepressor syncope, had a tilt table test in 2005. No further syncopal episodes reported. CT of the head without contrast done on February 19, 2021 showing no acute abnormality. Continue to monitor Left bundle branch block, the record from 2005 indicate the presence of left bundle branch block. Continue to monitor. 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 Asymptomatic continue to monitor, will plan to repeat echo after next f/u appt. Hyperlipidemia, intolerant to Lipitor secondary to myalgias. Maintained on Crestor, Lipid profile was done on September 20, 2021 showing total cholesterol 160, HDL 51, triglyceride 127, LDL 84. Continue to monitor Hypothyroidism, followed and managed by primary care physician History of recent back surgery Moderate carotid stenosis on the left, mild on the right, ultrasound was done in June 2022. Continue to monitor OK for discharge from cardiology standpoint. Follow up in 2-4 weeks. Supervisory-Addendum Brief Supervisory Addendum Participated in pt care: history, MDM, physical Personally performed: exam, history, MDM Care discussed with: SIMA Results interpretation: Verified all documentation Notes: Patient was seen and evaluated with Ciaran, examination performed, management plan was discussed, agree with the current scribed note, I made few changes to the note using Italic font Patient was seen at bedside sitting comfortably Complaining of fatigue Planning for discharge today Arrange for follow-up in 2 weeks CIARAN COLON Apr 10, 2023 08:09 MARSHALL LARSEN MD Apr 10, 2023 08:18
[2023-04-10] MEDS: polyethylene glycoL POWDER 17 GM (MIRALAX) PACK PO SCH (08:30)
[2023-04-10] MEDS: PREVAGEN PO SCH (08:31)
[2023-04-10] MEDS: COQ10 100 MG PO SCH (08:32)
[2023-04-10] MEDS: ROSUVASTATIN 5 MG (CRESTOR) TABLET PO SCH (08:32)
[2023-04-10] MEDS: DOCUSATE SODIUM 100 MG CAPSULE PO SCH (08:32)
[2023-04-10] MEDS: OMEGA 3 (FISH OIL) 1000 MG CAP PO SCH (08:32)
[2023-04-10] MEDS: GABAPENTIN 300 MG (NEURONTIN) CAP PO SCH (08:33)
[2023-04-10] MEDS: ASPIRIN enteric coated 81MG TABLET PO SCH (08:33)
[2023-04-10] MEDS: SENNA W/DOCUSATE (SENOKOT S) TABLET PO SCH (08:33)
[2023-04-10] MEDS: DULoxetine 20 MG CAPSULE PO SCH (08:33)
[2023-04-10] MEDS: MICONAZOLE 2% POWDER (DESENEX AF) 90 GM TOP SCH (08:34)
--- NOTE | 2023-04-10 11:17 | Discharge Summary ---
Diagnosis/Chief Complaint Date of Admission Apr 02, 2023 at 15:25 Date of Discharge Apr 10, 2023 at 09:45 Discharge Date: Apr 10, 2023 Discharge Diagnosis 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 on 04/01/2023 Encephalopathy from UTI much improved Fall Left rotator cuff injury remains in sling for comfort now sling DC AF noted during last hospital stay Hypertension Dementia Depression Post op DVT right leg dx 04/05/23 likely occurred during OSH hospital course when [facility] Eliquis was held during wait for pacemaker given USG performed after arrival to ARU Plan: Aggressive PT and OT Ultimately return back home to spouse 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 04/03/2023: Inquire with ortho who consulted last admit before pacemaker on her weight bearing status 04/04/2023: Heating pad on right leg 04/05/2023: [facility] 04/06/2023: Supportive care Monitor closely 04/07/2023: Monitor closely 04/08/2023: Supportive care Monitor closely 04/09/2023: Supportive care DC tomorrow (1) Myopathy (2) Complete heart block (3) Encephalopathy (4) S/P placement of leadless cardiac pacemaker (5) Injury of left rotator cuff Discharge Summary Discharge Physical Examination Allergies: Coded Allergies: vancomycin (Verified Allergy, Intermediate, Rash, 04/02/23) Cephalosporins (Verified Allergy, Unknown, 06/21/22) Iodinated Contrast Media (Verified Allergy, Unknown, 07/23/19) FROM UNCODED ALLERGY LIST ciprofloxacin (Verified Allergy, Unknown, 03/27/23) iodine (Verified Allergy, Unknown, 01/20/19) morphine (Verified Allergy, Unknown, 01/20/19) oxycodone (Verified Allergy, Unknown, 07/23/19) sulfamethoxazole (Verified Allergy, Unknown, 03/27/23) trimethoprim (Verified Allergy, Unknown, 03/27/23) Vitals & I&Os Vital Signs Date Time Temp Pulse Resp B/P (MAP) Pulse Ox O2 Delivery O2 Flow Rate FiO2 04/10/23 09:20 93 Room Air 04/10/23 07:34 36.4 65 16 123/59 (80) General Appearance: Alert, Oriented X3, Cooperative Respiratory: Clear to Auscultation Cardiovascular: Regular Rate Psych/Mental Status: Mental Status NL (baseline dementia) Hospital Course Was the Problem List Reviewed?: Yes Hospital Course: patient came in with left shoulder pain from previous rotator cuff injury and presented with generalized weakness and CHF myopathy following a leadless pacemaker implantation from [place] for a complete heart block. Past medical history includes HTN, LBBB with high grade AV block, dementia, and comp leted complicated UTI treatment. ECG showed sinus rhythm and cardiac monitoring was continued for length of stay which was approximately 1 week. A DVT was noted in the Right popliteal vein and patient was started on Xarelto 15mg BID for 3 weeks then QD, but otherwise no significant changes were seen in labs. Patient was admitted into acute rehab and started on PT and OT with slow recovery and improvment. Patient gradually felt better with no pains or falls and was discharged on 04/10/23. Noted AF om previous ICU stay prior to transfer to [place] so she will remain on [facility] senior living. Labs (last 24 hrs) Laboratory Tests 04/03/23 05:50: White Blood Count 9.0, Red Blood Count 4.13, Hemoglobin 12.9, Hematocrit 40, Mean Corpuscular Volume 97, Mean Corpuscular Hemoglobin 31, Mean Corpuscular Hemoglobin Concent 32, Red Cell Distribution Width 14.9H, Platelet Count 198, Mean Platelet Volume 10.5, Immature Granulocyte % (Auto) 1, Neutrophils (%) (Auto) 59, Lymphocytes (%) (Auto) 31, Monocytes (%) (Auto) 7, Eosinophils (%) (Auto) 2, Basophils (%) (Auto) 0, Neutrophils # (Auto) 5.3, Lymphocytes # (Auto) 2.8, Monocytes # (Auto) 0.6, Eosinophils # (Auto) 0.2, Basophils # (Auto) 0.0, Immature Granulocyte # (Auto) 0.1, Sodium Level 145, Potassium Level 3.6, Chloride Level 111H, Carbon Dioxide Level 26, Anion Gap 8, Blood Urea Nitrogen 13, Creatinine 0.70, Estimat Glomerular Filtration Rate 86, BUN/Creatinine Ratio 19, Glucose Level 106H, Calcium Level 9.0, Corrected Calcium 9.6, Total Bilirubin 0.4, Aspartate Amino Transf (AST/SGOT) 34, Alanine Aminotransferase (ALT/SGPT) 38, Alkaline Phosphatase 51, Total Protein 5.2L, Albumin 3.3 04/07/23 05:42: White Blood Count 7.8, Red Blood Count 4.05, Hemoglobin 12.7, Hematocrit 40, Mean Corpuscular Volume 98, Mean Corpuscular Hemoglobin 31, Mean Corpuscular Hemoglobin Concent 32, Red Cell Distribution Width 14.6H, Platelet Count 200, Mean Platelet Volume 10.7, Immature Granulocyte % (Auto) 1, Neutrophils (%) (Auto) 57, Lymphocytes (%) (Auto) 30, Monocytes (%) (Auto) 8, Eosinophils (%) (Auto) 4, Basophils (%) (Auto) 1, Neutrophils # (Auto) 4.5, Lymphocytes # (Auto) 2.4, Monocytes # (Auto) 0.6, Eosinophils # (Auto) 0.3, Basophils # (Auto) 0.0, Immature Granulocyte # (Auto) 0.1, Sodium Level 143, Potassium Level 4.0, Chloride Level 108H, Carbon Dioxide Level 28, Anion Gap 7, Blood Urea Nitrogen 9, Creatinine 0.81, Estimat Glomerular Filtration Rate 72, BUN/Creatinine Ratio 11, Glucose Level 116H, Calcium Level 9.1, Corrected Calcium 9.5, Total Bilirubin 0.4, Aspartate Amino Transf (AST/SGOT) 20, Alanine Aminotransferase (ALT/SGPT) 26, Alkaline Phosphatase 59, Total Protein 5.8L, Albumin 3.5 Pending Labs Laboratory Tests 04/03/23 05:50: White Blood Count 9.0, Red Blood Count 4.13, Hemoglobin 12.9, Hematocrit 40, Mean Corpuscular Volume 97, Mean Corpuscular Hemoglobin 31, Mean Corpuscular Hemoglobin Concent 32, Red Cell Distribution Width 14.9, Platelet Count 198, Mean Platelet Volume 10.5, Immature Granulocyte % (Auto) 1, Neutrophils (%) (Auto) 59, Lymphocytes (%) (Auto) 31, Monocytes (%) (Auto) 7, Eosinophils (%) (Auto) 2, Basophils (%) (Auto) 0, Neutrophils # (Auto) 5.3, Lymphocytes # (Auto) 2.8, Monocytes # (Auto) 0.6, Eosinophils # (Auto) 0.2, Basophils # (Auto) 0.0, Immature Granulocyte # (Auto) 0.1, Sodium Level 145, Potassium Level 3.6, Chloride Level 111, Carbon Dioxide Level 26, Anion Gap 8, Blood Urea Nitrogen 13, Creatinine 0.70, Estimat Glomerular Filtration Rate 86, BUN/Creatinine Ratio 19, Glucose Level 106, Calcium Level 9.0, Corrected Calcium 9.6, Total Bilirubin 0.4, Aspartate Amino Transf (AST/SGOT) 34, Alanine Aminotransferase (ALT/SGPT) 38, Alkaline Phosphatase 51, Total Protein 5.2, Albumin 3.3 04/07/23 05:42: White Blood Count 7.8, Red Blood Count 4.05, Hemoglobin 12.7, Hematocrit 40, Mean Corpuscular Volume 98, Mean Corpuscular Hemoglobin 31, Mean Corpuscular Hemoglobin Concent 32, Red Cell Distribution Width 14.6, Platelet Count 200, M jefferson Platelet Volume 10.7, Immature Granulocyte % (Auto) 1, Neutrophils (%) (Auto) 57, Lymphocytes (%) (Auto) 30, Monocytes (%) (Auto) 8, Eosinophils (%) (Auto) 4, Basophils (%) (Auto) 1, Neutrophils # (Auto) 4.5, Lymphocytes # (Auto) 2.4, Monocytes # (Auto) 0.6, Eosinophils # (Auto) 0.3, Basophils # (Auto) 0.0, Immature Granulocyte # (Auto) 0.1, Sodium Level 143, Potassium Level 4.0, Chloride Level 108, Carbon Dioxide Level 28, Anion Gap 7, Blood Urea Nitrogen 9, Creatinine 0.81, Estimat Glomerular Filtration Rate 72, BUN/Creatinine Ratio 11, Glucose Level 116, Calcium Level 9.1, Corrected Calcium 9.5, Total Bilirubin 0.4, Aspartate Amino Transf (AST/SGOT) 20, Alanine Aminotransferase (ALT/SGPT) 26, Alkaline Phosphatase 59, Total Protein 5.8, Albumin 3.5 Discharge Home Medications: Active Scripts Active Lotrimin AF (Miconazole Nitrate) 2 % Powder 0 Gm TOP BID twice daily under breasts Aspirin EC (Aspirin) 81 Mg Tablet.dr 81 Mg PO DAILY Rosuvastatin Calcium 5 Mg Tablet 5 Mg PO DAILY Metoprolol Succinate 25 Mg Tab.er.24h 12.5 Mg PO DAILY Ezetimibe 10 Mg Tablet 10 Mg PO DAILY Xarelto Tablet (Rivaroxaban) 20 Mg Tablet 20 Mg PO DAILY@1700 Start 20mg once daily after started pack completed Xarelto Starter Pack (Rivaroxaban) 15 Mg (42)- 20 Mg (9) Tab.ds.pk 1 Each PO UD 15mg by mouth twice daily x 21 days then 20mg by mouth daily Reported Co Q-10 (Ubidecarenone) 50 Mg Capsule 50 Mg PO DAILY Melatonin 3 Mg Tablet 6 Mg PO HS TAKES 2 (3MG) TABS Ocuvite Adult 50 Plus Softgel (Mv-Mn/Om3/Dha/Epa/Fish/Lut/Lonnie) 250 Mg (90 Mg-160 Mg)-5 Mg-1 Mg Capsule 2 Each PO DAILY [Prevagen] 1 Ea PO DAILY Neurontin (Gabapentin) 300 Mg Capsule 900 Mg PO HS TAKES 3 (300MG) CAPS Neurontin (Gabapentin) 300 Mg Capsule 600 Mg PO DAILY TAKES 2 (300MG) CAPS Duloxetine HCl 20 Mg Capsule.dr 20 Mg PO DAILY Fish Oil 1,000 mg Softgel ([place]-3 Fatty Acids/Fish Oil) 300 Mg-1,000 Mg Capsule 2,000 Mg PO DAILY TAKES 2 (1000MG) CAPS Famotidine 20 Mg Tablet 20 Mg PO HS Levothyroxine Sodium 100 Mcg Tablet 100 Mcg PO DAILY Instructions to patient/family Please see electronic discharge instructions given to patient. Diagnosis/Problems Diagnosis/Problems (1) Myopathy (2) Complete heart block (3) Encephalopathy (4) S/P placement of leadless cardiac pacemaker (5) Injury of left rotator cuff JUSTIN KOWALSKI DO Apr 10, 2023 11:17
--- NOTE | 2023-04-10 14:47 | Progress Note ---
DOWNS 04/10/23 1447: Progress Note Hospital Course: patient came in with left shoulder pain from previous rotator cuff injury and presented with generalized weakness and CHF myopathy following a leadless pacemaker implantation from [facility] for a complete heart block. Past medical history includes HTN, LBBB with high grade AV block, dementia, and completed complicated UTI treatment. ECG showed sinus rhythm and cardiac monitoring was continued for length of stay which was approximately 1 week. A DVT was noted in the Right popliteal vein and patient was started on Xarelto 15mg BID for 3 weeks then QD, but otherwise no significant changes were seen in labs. Patient was admitted into acute rehab and started on PT and OT with slow recovery and improvment. Patient gradually felt better with no pains or falls and was discharged on 04/10/23. KIKA KOWALSKI DO 04/10/232109: Supervisory-Addendum Brief Verification & Attestation Participated in pt care: history, MDM, physical Personally performed: exam, history, MDM, supervision of care Care discussed with: Medical Student Procedures: n/a Results interpretation: Verified all documentation Verification and Attestation of Medical Student E/M Service A medical student performed and documented this service in my presence. I reviewed and verified all information documented by the medical student and made modifications to such information, when appropriate. I personally performed the physical exam and medical decision making. Kika Kowalski, Apr 10, 2023,21:10 DOWNS Apr 10, 2023 14:47 KIKA KOWALSKI DO Apr 10, 2023 21:10
--- NOTE | 2023-04-10 16:00 | Therapy Team Discharge Summary ---
Therapy Discharge Summary Discharge Recommendations Date of Discharge Apr 10, 2023 at 09:45 Therapy D/C Recommendations: Home w/ Family Support, Physical Therapy Home Care Physical Therapy Pt fell about a week in a half ago; Went to Dr patel on 03/27/23 and was admitted for UTI and was found to have a complete heart block; Transferred to [facility] for pacemaker placement on 04/01/23; Admitted to ARU on 04/02/23. At [facility], pt was Ind with no AD and driving. Upon PT eval, pt required Min A for bed mobility, functional transfers, and walking with the natacha-walker; pt was only able to ambulate 10ft. PT focused on B LE strengthening, balance/safety, walking, endurance, functional mobility, and overall Ind. Pt progressed well with PT and met most set goals. Pt d/c from ARU on 04/10/23 to home with family support and HH; D/C from PT at this time. Roll Left to Right (QC): 6 Sit to Lying (QC): 6 Lying to Sitting/Side of Bed(Q: 6 Sit to Stand (QC): 5 Chair/Mni-hy-Akwct Xfer(QC): 4 Toilet Transfer (QC): 5 Car Transfer (QC): 4 Does the Patient Walk: Yes Mode of Locomotion: Walk Anticipated Mode of Locomotion: Walk Walk 10 feet (QC): 4 Walk 50 ft with 2 Turns(QC): 4 Walk 150 ft (QC): 4 Walking 10ft on uneven surface: 4 Gait Assistive Device: FWW Does the Pt Use a Wheelchair: No Wheel 50 ft with 2 turns (QC): 9 Wheel 150 ft (QC): 9 Type of Wheelchair: N/A #of Steps: 4 1 Step (curb) (QC): 4 4 Steps (QC): 4 12 Steps (QC): 9 Balance Sitting Static: Good Balance Sitting Dynamic: Good Balance-Standing Static: Fair Picking up an Object (QC): 5 Occupational Therapy Decreased Activ Tolerance, Decreased Safety Aware, Decreased UE Strength Eating (QC): 6 Oral Hygiene (QC): 6 Shower/Bathe Self (QC): 6 Upper Body Dressing (QC): 5 Lower Body Dressing (QC): 5 On/Off Footwear (QC): 5 Toileting Hygiene (QC): 6 PT Cutting Machine Tender Helper Goals Cutting Machine Tender Helper Goals PT Cutting Machine Tender Helper Goals Time Frame: Apr 16, 2023 Roll Left to Right (QC): 6 Sit to Lying (QC): 6 Lying-Sitting on Side/Bed(QC): 6 Sit to Stand (QC): 6 Chair/Ldk-tc-Wzczt Xfer(QC): 6 Toilet/Commode Transfer (QC): 6 Car Transfer (QC): 6 Does the Patient Walk: Yes Walk 10 feet (QC): 4 Walk 10ft-Uneven Surface(QC): 4 Walk 50ft with 2 Turns (QC): 4 Walk 150 ft (QC): 4 Does the Pt use WC or Scooter?: No Wheel 50 feet with 2 turns (QC: 9 Type: N/A Wheel 150 feet: 9 Type: N/A 1 Step (curb) (QC): 4 4 Steps (QC): 4 12 Steps (QC): 4 Picking up an Object (QC): 6 OT Cutting Machine Tender Helper Goals Prison Goals Acute change in mental status: 0 Inattention: 0 Disorganized thinkin Altered level of consciousness: 0 Oral Hygiene (QC): 6 (met) Toileting Hygiene (QC): 6 (met) Shower/Bathe Self (QC): 5 (met) Upper Body Dressing (QC): 5 (met) Lower Body Dressing (QC): 5 (met) On/Off Footwear (QC): 5 (met) 1=Demonstrate adherence to instructed precautions during ADL tasks. 2=Patient will verbalize/demonstrate understanding of assistive derick aaliyah/modifications for ADL. 3=Patient will improve strength/tolerance for activity to enable patient to perform ADL's. Speech Prison Goals Cutting Machine Tender Helper Goals Pt will complete language tasks with 80% accuracy with min verbal cues. Pt will complete executive function tasks with 80% accuracy with min verbal cues. KENRICK YAP PT Apr 10, 2023 16:00
--- NOTE | 2023-04-10 19:30 | Speech Therapy Daily Note ---
Speech Daily Progress Note Subjective Date Seen by Provider: Apr 09, 2023 Time Seen by Provider: 10:20 Pt sitting up in recliner. Pt reports she had been working on the [employer] SOAKING ROOM OPERATOR printed off and left for her. Pt reports she is excited about potential d/c from IRU tomorrow. Pt pleasant and cooperative throughout session. Pain Location: No Pain Reported Objective Pt reports she frequently plays solitaire on her computer at home. SOAKING ROOM OPERATOR has a deck of cards. Pt is unable to recall how to set up solitaire. SOAKING ROOM OPERATOR sets up the game. Pt then requires mod-max verbal cues to play the game. Pt keeps saying throughout the session that this doesn't seem familiar to how she plays solitaire on the computer. Pt often tries to put same numbers on top of each other or same colors. Pt has to be reminded multiple times throughout the session that the colors have to alternate between red and black and the numbers go down in chronological order with each card. Pt also requires frequent cues to turn over the next card when she moves a card to another pile. Pt also requires mod verbal cues to make moves in the game. Assessment Assessment Current Status: Poor Progress Treatment Plan Continue Plan of Care Speech Short Term Goals Short Term Goals Short Term Goals Pt will complete memory and mental manipulation tasks with 80% accuracy with min verbal cues. Speech Intermediate Goals Intermediate Goals Pt will complete language tasks with 80% accuracy with min verbal cues. Pt will complete executive function tasks with 80% accuracy with min verbal cues. Speech-Plan Patient/Family Goals Patient/Family Goals: Pt's goal is to return home with her . Treatment Plan Speech Therapy Treatment Plan: Continue Plan of Care Treatment Duration: Apr 03, 2023 Frequency: 3 times per week Estimated Hrs Per Day: .5 hour per day Rehab Potential: Good Safety Risks/Education Teaching Recipient: Patient Teaching Methods: Discussion Response to Teaching: Verbalize Understanding, Reinforcement Needed Education Topics Provided: Pt educated on the purpose of therapy tasks. Pt receptive and verbalizes understanding but will likely require reinforcement. Time Speech Therapy Time In: 10:20 Speech Therapy Time Out: 10:50 DATE: Apr 09, 2023 Total Billed Time: 30 Billed Treatment Time S/L Álvaro Ackerman Speech Therapy Apr 10, 2023 19:30
--- NOTE | 2023-04-11 11:47 | Therapy Team Discharge Summary ---
Therapy Discharge Summary Discharge Recommendations Date of Discharge Apr 10, 2023 at 09:45 Therapy D/C Recommendations: Home w/ Family Support, Physical Therapy Home Care Physical Therapy Roll Left to Right (QC): 6 Sit to Lying (QC): 6 Lying to Sitting/Side of Bed(Q: 6 Sit to Stand (QC): 5 Chair/Rpm-yk-Okhlh Xfer(QC): 4 Toilet Transfer (QC): 5 Car Transfer (QC): 4 Does the Patient Walk: Yes Mode of Locomotion: Walk Anticipated Mode of Locomotion: Walk Walk 10 feet (QC): 4 Walk 50 ft with 2 Turns(QC): 4 Walk 150 ft (QC): 4 Walking 10ft on uneven surface: 4 Gait Assistive Device: FWW Does the Pt Use a Wheelchair: No Wheel 50 ft with 2 turns (QC): 9 Wheel 150 ft (QC): 9 Type of Wheelchair: N/A #of Steps: 4 1 Step (curb) (QC): 4 4 Steps (QC): 4 12 Steps (QC): 9 Balance Sitting Static: Good Balance Sitting Dynamic: Good Balance-Standing Static: Fair Picking up an Object (QC): 5 Occupational Therapy Pt fell about a week PRIOR TO ADMISSION; Went to Dr appointment on 03/27/23 and was admitted TO [facility] for UTI and was found to have a complete heart block; Transferred to [facility] for pacemaker placement on 04/01/23; Admitted to ARU on 04/02/23. At [facility], pt was Ind with no AD and driving. Upon OT eval, pt required Min A for bed mobility, ADLS, functional transfers, and walking with the natacha-walker; pt was only able to ambulate 10ft. OT focused on B UE strengthening, balance/safety, walking, endurance, functional mobility, ADLS and ROM. SLing has been discharged . Pt progressed well with OT and met most set goals. Pt d/c from ARU on 04/10/23 to home with family support and HH; D/C from OT at this time Decreased Activ Tolerance, Decreased Safety Aware, Decreased UE Strength Eating (QC): 6 Oral Hygiene (QC): 6 Shower/Bathe Self (QC): 6 Upper Body Dressing (QC): 5 Lower Body Dressing (QC): 5 On/Off Footwear (QC): 5 Toileting Hygiene (QC): 6 PT Prison Goals Prison Goals PT Prison Goals Time Frame: Apr 16, 2023 Roll Left to Right (QC): 6 Sit to Lying (QC): 6 Lying-Sitting on Side/Bed(QC): 6 Sit to Stand (QC): 6 Chair/Dyp-cm-Uhigu Xfer(QC): 6 Toilet/Commode Transfer (QC): 6 Car Transfer (QC): 6 Does the Patient Walk: Yes Walk 10 feet (QC): 4 Walk 10ft-Uneven Surface(QC): 4 Walk 50ft with 2 Turns (QC): 4 Walk 150 ft (QC): 4 Does the Pt use WC or Scooter?: No Wheel 50 feet with 2 turns (QC: 9 Type: N/A Wheel 150 feet: 9 Type: N/A 1 Step (curb) (QC): 4 4 Steps (QC): 4 12 Steps (QC): 4 Picking up an Object (QC): 6 OT Technology Education Teacher Goals Prison Goals Acute change in mental status: 0 Inattention: 0 Disorganized thinkin Altered level of consciousness: 0 Oral Hygiene (QC): 6 (met) Toileting Hygiene (QC): 6 (met) Shower/Bathe Self (QC): 5 (met) Upper Body Dressing (QC): 5 (met) Lower Body Dressing (QC): 5 (met) On/Off Footwear (QC): 5 (met) 1=Demonstrate adherence to instructed precautions during ADL tasks. 2=Patient will verbalize/demonstrate understanding of assistive devices/modifications for ADL. 3=Patient will improve strength/tolerance for activity to enable patient to perform ADL's. Speech Technology Education Teacher Goals Prison Goals Pt will complete language tasks with 80% accuracy with min verbal cues. Pt will complete executive function tasks with 80% accuracy with min verbal cues. VANNA VALLADARES OT Apr 11, 2023 11:47
[2023-04-25] MEDS ORDERED: RIVAROXABAN 20 MG TABLET (XARELTO) PO SCH (17:00)
== END 2023-04-10 09:45 | disposition home health service (06) | DRG 92 ==
PROVIDERS: ADMIT Internal Medicine; ATTEND Internal Medicine
DX: G72.89 Other specified myopathies (principal); G93.49 Other encephalopathy; I44.2 Atrioventricular block, complete; Q21.12 Patent foramen ovale; I82.431 Acute embolism and thrombosis of right popliteal vein; I11.0 Hypertensive heart disease with heart failure; I50.9 Heart failure, unspecified; I48.91 Unspecified atrial fibrillation; K21.9 Gastro-esophageal reflux disease without esophagitis; M19.90 Unspecified osteoarthritis, unspecified site; E03.9 Hypothyroidism, unspecified; S46.002D Unspecified injury of muscle(s) and tendon(s) of the rotator cuff of left shoulder, subsequent encounter; I49.5 Sick sinus syndrome; I25.10 Atherosclerotic heart disease of native coronary artery without angina pectoris; I44.7 Left bundle-branch block, unspecified; I83.93 Asymptomatic varicose veins of bilateral lower extremities; I65.23 Occlusion and stenosis of bilateral carotid arteries; F03.90 Unspecified dementia, unspecified severity, without behavioral disturbance, psychotic disturbance, mood disturbance, and anxiety; F32.A Depression, unspecified; Z79.01 Long term (current) use of anticoagulants; Z79.899 Other long term (current) drug therapy; Z79.82 Long term (current) use of aspirin; Z95.0 Presence of cardiac pacemaker; Z88.5 Allergy status to narcotic agent; Z88.2 Allergy status to sulfonamides; Z88.1 Allergy status to other antibiotic agents; Z91.041 Radiographic dye allergy status; W19.XXXD Unspecified fall, subsequent encounter
CPT/HCPCS: 36415; 80053; 85025; 93005